=== PATIENT | male | born 1960 | race Caucasian/White ===

== ENCOUNTER → 2017-05-26 | Outpatient (CLI) | payer BC ==
--- NOTE | 2017-05-27 15:11 | ENG ---
ELECTRONYSTAGMOGRAM REPORT DATE OF SERVICE: 05/26/2017. VNG INDICATIONS: Vertigo. VNG FINDINGS: Saccades show intact peak velocities, accuracies and latencies. Gaze with fixation shows no nystagmus in any of the directions of gaze including centrally with vision denied. Tracking shows no break-ups at faster or slower speeds. Opticokinetic nystagmus shows no asymmetry. Static position testing of six different positions with eyes open and then with vision denied shows no nystagmus. Pinson-Hallpike maneuvers are negative bilaterally. Caloric testing shows a 14% unilateral left caloric weakness which is within normal limits. IMPRESSION: Unremarkable VNG study. MMODL / IJN: [id number] /
== END | disposition home or self-care (01) ==
LOC: NEUROMAIN 10:43
PROVIDERS: ATTEND Otolaryngology
DX: R42 Dizziness and giddiness (principal)
CPT/HCPCS: 92537; 92540

== ENCOUNTER → 2017-07-12 | Outpatient (CLI) | payer BC ==
--- NOTE | 2017-07-12 23:12 | MR ---
EXAMINATION TYPE: MR brain and iac wo/w con DATE OF EXAM: 07/12/2017 COMPARISON: NONE HISTORY: Dizziness TECHNIQUE: Multiplanar, multisequence images of the brain and brainstem is performed without and with IV contras t, utilizing 10 mL intravenous Gadavist . FINDINGS: Diffusion weighted images demonstrate no evidence of a recent infarct or other diffusion ab normality. There is no extra-axial fluid collection or significant white matter signal abnormality. The ventricular system and cisternal spaces are normal in size and appearance. The brain volume is age appropriate. Craniocervical junction is maintained. Sella turcica has a normal appearance. There are multiple scattered areas of abnormal signal within the white matter bilaterally which is no t. All measure 5 mm or less. There are approximately 20-25 lesions. No enhancing lesions. There is no evidence of cerebellopontine angle mass or acoustic schwannoma. Changes of mild bilateral chronic mastoiditis noted. There is a 7 mm mucosal lesion involving the posterior nasopharynx which does not meet the criteria o f a cyst. Changes of chronic sinusitis noted. IMPRESSION: 1. No evidence of cerebellopontine angle mass or acoustic schwannoma 2. There is a 7 mm mucosal lesion involving the posterior nasopharynx correlate with the ENT consulta tion. 3. Changes of mild chronic mastoiditis and sinusitis. 4. Nonspecific white matter changes. Differential diagnosis would include hypertension, migraine head aches, demyelinating disease, and remote microvascular ischemia.
== END | disposition home or self-care (01) ==
LOC: RADMRIMAIN 17:05
PROVIDERS: ATTEND Family Medicine
DX: R90.82 White matter disease, unspecified (principal); R42 Dizziness and giddiness
CPT/HCPCS: 70553; A9581

== ENCOUNTER → 2017-07-15 | Outpatient (CLI) | payer BC ==
[~2017-07-15] MED LIST: DOBUTamine 250 MG in DEXTROSE 5% IN WATER 250 ML IV ONE
--- NOTE | 2017-07-15 13:12 | EST ---
EXERCISE STRESS AGE: 57 SEX: M HT: 6' WT: 210 PROTOCOL: Dobutamine Stress Echo STAGE: III DURATION OF EXERCISE: 9:05 HEART RATE REST: 62. BLOOD PRESSURE REST: 138/73 MAXIMUM HEART RATE ACHIEVED: 138 MAXIMUM BLOOD PRESSURE: 207/42 85% MPHR: 138 100% MPHR: 160 INDICATIONS: Dizziness CLINICAL INFORMATION: Baseline heart rate 62 beats per minute. Baseline blood pressure 138/73 mmHg. Baseline 12-lead ECG shows normal sinus rhythm with normal ST segments. Patient received dobutamine infusion per protocol. There was a [address] depression noted at peak exercise that lasted in recovery. The baseline 2D echo images showed normal LV size and systolic function without segmental wall motion abnormalities. The 2D echo images at baseline showed normal LV size and systolic function without segmental wall motion abnormalities. There was a stepwise improvement in overall LV contractility without development of any wall motion abnormalities with a incremental dose of dobutamine at recovery regional global LV systolic function remained normal. IMPRESSION: 1. A [address] depressions inferolaterally during dobutamine infusion. 2. No echocardiographic evidence for ischemia. Heart rate mildly hypertensive response to dobutamine infusion. MMODL / IJN: [id number] /
== END | disposition home or self-care (01) ==
LOC: RADNMMAIN 09:53
PROVIDERS: ATTEND Family Medicine
DX: R94.39 Abnormal result of other cardiovascular function study (principal); R06.00 Dyspnea, unspecified
CPT/HCPCS: 93017; 93350; J1250

== ENCOUNTER → 2017-11-10 | Outpatient (CLI) | payer BC ==
--- NOTE | 2017-11-10 11:11 | US ---
EXAMINATION TYPE: US duplex aorta DATE OF EXAM: 11/10/2017 COMPARISON: NONE CLINICAL HISTORY: 57-year-old male I70.0 Atherosclerosis of aorta. Back Pain TECHNIQUE: Multiple sonographic images of the abdominal aorta are obtained. FINDINGS: EXAM MEASUREMENTS: Abdominal Aorta: Proximal: 2.3 x 2.3 cm Mid: 2.3 x 2.1 cm Distal: 1.8 x 1.8 cm Bifurcation: 1.3 cm 1.3 cm There is mild to moderate atherosclerotic irregularity. Curriculum And Assessment Director notes: No evidence of AAA. Some portions obscured by bowel gas. IMPRESSION: Small segments of the abdominal aorta are obscured by bowel gas. No AAA visualized.
== END | disposition home or self-care (01) ==
LOC: RADUSWWP 10:08
PROVIDERS: ATTEND Family Medicine
DX: I70.0 Atherosclerosis of aorta (principal); R14.3 Flatulence
CPT/HCPCS: 93979

== ENCOUNTER 2020-06-14 11:22 | Day surgery (SDC) | payer BC ==
[2020-06-13 08:54] VITALS: BMI 26.7
[~2020-06-14 11:22] MED LIST changes: +ALBUTEROL NEB (CONC) 2.5 MG/0.5 ML INHALATION ONE; +DEXAMETHASONE SOD PHOSPHATE 4 MG/ML 1 ML VIAL IV ONE; -DOBUTamine 250 MG in DEXTROSE 5% IN WATER 250 ML IV ONE; +LACTATED RINGERS 1,000 ML IV SCH; +LIDOCAINE 1% (10MG/ML) FOR IV START INTRADERMA PRN; +LIDOCAINE 2% (PF) 20 MG/ML 5 ML VIAL INHALATION ONE; +LIDOCAINE VISCOUS 300 MG/15 ML CUP MUCOUS MEM ONE; +ONDANSETRON 4 MG/2 ML VIAL IVP ONE; +SODIUM CHLORIDE 0.9% 1,000 ML IV SCH
[2020-06-14] MEDS ORDERED: MIDAZOLAM 2 MG/2 ML VIAL ONE (12:24)
[2020-06-14] MEDS ORDERED: PROPOFOL 10 MG/ML 20 ML VIAL IV ONE (12:24)
[2020-06-14] MEDS ORDERED: KETAMINE 10 MG/ML 20 ML VIAL ONE (12:24)
[2020-06-14] MEDS ORDERED: LIDOCAINE 1% INJ 10MG/ML (20 ML MDV) ONE (12:24)
[2020-06-14] MEDS ORDERED: fentaNYL (PF) 50 MCG/ML 2 ML AMP ONE (12:24)
[2020-06-14] MEDS ORDERED: SUCCINYLCHOLINE CHLORIDE 100 MG/5 ML SYR IV ONE (12:24)
[2020-06-14] MEDS ORDERED: SODIUM CHLORIDE 0.9% 500 ML 500 ML IV ONE (13:10)
--- NOTE | 2020-06-14 13:12 | P.PCN ---
Date of Procedure: 06/14/20 Preoperative Diagnosis: Mediastinal mass, adenopathy Postoperative Diagnosis: 1 mediastinal lymphadenopathy/mass 2 eExtrinsic compression of the right mainstem bronchus, with some mild endobronchial irregularities involving the medial wall of the right mainstem bronchus 3 endobronchial irregularities and narrowing of the right middle lobe bronchus Procedure(s) Performed: 1 flexible bronchoscopy 2 Transbronchial needle aspirate of the right paratracheal and subcarinal lymph node 3 endobronchial bronchial brushings of the right mainstem bronchus 4 endobronchial biopsies of the right middle lobe bronchus 5 bronchioloalveolar lavage of the right mainstem bronchus Anesthesia: GETA Surgeon: Kevin Chavez Continuous Improvement Lead #1: Erum Hassan Estimated Blood Loss (ml): 5 Pathology: other Condition: stable Disposition: floor Operative Findings: This procedure was done under conscious sedation. The procedure, the procedure was converted to general anesthesia and the patient was ultimately intubated and placed on a mechanical ventilator by the anesthesia team as the patient had significant cough during the procedure with presented our ability to complete our biopsies. Following intubation, the the flexible bronchoscope was introduced through the orotracheal tube into the past the lower trachea. Distal trachea was within normal limits. Examination of the left side including left main stem bronchus, left upper and left lower bronchus along with the aid different segments of the left lung and these structures were within normal limits without any significant abnormalities. The main toni was normal. The distal tracheal wall laterally was aphasic and the cartilaginous rings were not adequately visualized. It was obvious that there was some mass effect associated by the right paratracheal lymphadenopathy on the right lateral tracheal wall. At the level of the main stem bronchus, the medial wall of the right mainstem bronchus was extrinsically compressed and there was some minimal endobronchial irregularities and fine polypoid lesions along the wall going medially and airway caliber was reduced by around 30-40% of its normal size. Examination was continued on similar endobronchial irregularities and narrowing was seen in the right middle lobe bronchus. The right lower lobe bronchus and the right upper lobe bronchus was within normal limits. At this point, using a 19-gauge histology and 21-gauge cytology needle, transbronchial needle aspirate of the right paratracheal lymph node and subcarinal lymph node was obtained. Following that, endobronchial washing/BAL of the right mainstem bronchus was somewhat a total of 60 mL of fluid was infused and 20 mL was suctioned back. Endobronchial brushings of the right mainstem bronchus was done with special attention to with the endobronchial irregularities of the medial wall of the right mainstem bronchus. I also performed some endobronchial biopsies of the mucosa irregularities in the right middle lobe bronchus. There was some bleeding encountered and amount of blood was less than 5 mL. It was suctioning with him. Bronchoscope was removed and the patient was left for an associated to be extubated. Subsequently the patient will be transferred to recovery post extubation. We'll continue to follow. Preliminary samples were inspected by pathology at the bedside and the adequacy of the samples were confirmed.
[2020-06-14 13:32] VITALS: TEMP 98
[2020-06-14 13:59] VITALS: RESP 20
--- NOTE | 2020-06-14 14:00 | XR ---
EXAMINATION TYPE: XR chest 1V portable DATE OF EXAM: 06/14/2020 Comparison: CT 06/07/2020 Clinical History: 59 year-old male post right-sided bronchoscopy Findings: Heart limits of normal in size. Diffuse interstitial density. Focal patchy peripheral right mid and l ower lung opacity. Right hilar soft tissue prominence. No pleural effusion or pneumothorax. Impression: COPD and known right hilar mass. As compared to the patient's recent outside CT, patchy opacity in th e periphery of right mid to lower lung is increased and could represent post bronchoscopy changes or postobstructive atelectasis/pneumonitis. Clinically correlate.
[2020-06-14 14:33] VITALS: BP 125/77; PULSE 100
[2020-06-14 16:45] LABS: Appearance,BF Bloody; Color,BF Red; Nucleated Cells, Body Fluid 70 /uL; RBC, Body Fluid 48350 /uL
[2020-06-14 17:04] LABS: Mononuclear WBC,Body Fluid 15 %; Polynuclear WBC,Body Fluid 85 %; Total Cells Counted,Body Fluid 100
== END 2020-06-14 14:54 | disposition home or self-care (01) ==
LOC: ORWHC2ENDO 11:22
PROVIDERS: ATTEND Internal Medicine Critical Care Medicine
DX: C34.2 Malignant neoplasm of middle lobe, bronchus or lung (principal); C77.1 Secondary and unspecified malignant neoplasm of intrathoracic lymph nodes; R59.1 Generalized enlarged lymph nodes; D64.9 Anemia, unspecified; M54.6 Pain in thoracic spine; J43.9 Emphysema, unspecified; K76.9 Liver disease, unspecified; Z79.891 Long term (current) use of opiate analgesic; Z79.51 Long term (current) use of inhaled steroids; Z96.649 Presence of unspecified artificial hip joint; Z87.01 Personal history of pneumonia (recurrent); Z87.891 Personal history of nicotine dependence; Z97.2 Presence of dental prosthetic device (complete) (partial); Z82.3 Family history of stroke; Z80.1 Family history of malignant neoplasm of trachea, bronchus and lung
CPT/HCPCS: 88104; 88108; 88305; 88173; 89050; 88342; 88341; 87070; 87205; 71045; 31629; 31625; 31623; 31624; J2250; J2001; J3010; J0330; J2704

== ENCOUNTER → 2020-06-20 | Outpatient (CLI) | payer BC ==
--- NOTE | 2020-06-21 09:48 | MR ---
EXAMINATION TYPE: MR brain wo/w con DATE OF EXAM: 06/20/2020 COMPARISON: 07/12/2017 MRI HISTORY: F/u to Lung CA CONTRAST: Performed utilizing 7.5 mL intravenous Gadavist gadolinium contrast. TECHNIQUE: Multiplanar, multiecho imaging on a 3.0 Sammie magnet is performed through the brain. Stud y is performed within 24 hours of arrival to the hospital. The craniovertebral junction is normal. The pituitary is normal. Diffusion-weighted imaging is performed. No abnormal hyperintensity is present to suggest an acute i ntracranial infarct or acute ischemic change. There are scattered punctate areas of hyperintensity within the periventricular white matter as well as the brainstem on T2 and Inversion Recovery weighted sequences which are non-specific but can be re lated to microvascular ischemic changes. Findings appear similar to 2018. Ventricles and sulci are appropriate for the patient age. No suspicious enhancement is evident. IMPRESSIONS: 1. No suspicious changes to suggest metastatic disease. 2. Stable nonspecific punctate white matter changes most likely on the basis of chronic white matter ischemic change, similar to 2018.
== END ==
LOC: RADMRIMAIN 09:41
PROVIDERS: ATTEND Internal Medicine Hematology & Oncology
DX: C34.90 Malignant neoplasm of unspecified part of unspecified bronchus or lung (principal)
CPT/HCPCS: 70553; A9585

== ENCOUNTER → 2020-06-21 | Outpatient (CLI) | payer BC ==
--- NOTE | 2020-06-25 07:05 | PE ---
EXAMINATION TYPE: PET CT fusion skull to thigh DATE OF EXAM: 06/21/2020 COMPARISON: Outside CTA chest June 07, 2020 HISTORY: Left lung cancer on biopsy June 14, 2020 TECHNIQUE: Following the intravenous administration of 11.7 mCi of F-18 FDG, whole body images are p erformed from the skull base to the midthigh. Images are reviewed on the computer in the coronal, ax ial, and sagittal planes. Reconstructed rotating images are created on independent workstation and r eviewed on the computer. A localization and attenuation correction CT is performed in conjunction w ith the PET scan. Blood glucose level equals 97. SCAN: Initial Scan FINDINGS: SKULL BASE AND NECK: There is roughly 1.1 x 0.8 cm right supraclavicular hypermetabolic lymph node, max SUV 3.65 on axial image 57. CHEST, MEDIASTINUM, AND HILAR REGION: Background moderate underlying emphysematous change and low abdias g volumes. Persistent poorly defined right hilar mass with mediastinal invasion that has postobstruct gallito atelectatic change and/or consolidation extending posteriorly and inferiorly, there is soft tissu e encasement surrounding the right-sided bronchi and bronchus intermedius through middle and lower lo be branches. Area of involvement measures at least 6.8 x 5.4 cm with max SUV 7.52. There is abnormal hypermetabolic anterior superior mediastinal lymph nodes, right paratracheal, peric arinal, and bilateral hilar lung with subcarinal lymph nodes. For reference there is right tracheobro nchial 2.2 x 1.7 cm hypermetabolic lymph node, max SUV 4.95. ABDOMEN AND PELVIS: Multiple hypermetabolic hypodense metastatic lesions throughout the liver for ref erence one of larger lesions measures 3.5 cm long axis image 135, max SUV is 5.32. Suspicious subcentimeter focus in region of pancreatic tail image 146, Max SUV is 3.4. OSSEOUS STRUCTURES: Possible left pubic lesion axial image 241, max SUV 3.46. Subtle sclerosis at thi s level noted. There is proximal right femoral lesion intertrochanteric level axial image 257, max GILBERT V 4.75. Mild height loss T12 vertebra with mild hypermetabolic uptake, max SUV 3.6. OTHER CT: Mild calcified plaque bilateral carotid bulb level. There is cardiomegaly with mild/moderate coronary artery calcification. Small fat-containing left periumbilical hernia axial image 187. Mild/moderate calcified plaque of the abdominal aorta. Metallic hardware from left hip arthroplasty causes streak artifact. IMPRESSION: Advanced stage right lung neoplasm confirmed as suspected clinically with abnormal thorac ic and supraclavicular adenopathy, there is hepatic and osseous metastatic disease noted. Other findi ngs as detailed above.
== END | disposition home or self-care (01) ==
LOC: RADPETMAIN 17:47
PROVIDERS: ATTEND Internal Medicine Hematology & Oncology
DX: C34.91 Malignant neoplasm of unspecified part of right bronchus or lung (principal); C78.7 Secondary malignant neoplasm of liver and intrahepatic bile duct; C79.51 Secondary malignant neoplasm of bone
CPT/HCPCS: 78815; A9552

== ENCOUNTER → 2020-08-09 | Outpatient (CLI) | payer BC ==
[2020-08-09 16:39] LABS: Basophils # (A) 0.02 X 10*3/uL (0.00-0.10); Basophils % (A) 0.7 %; Eosinophils # (A) 0.01 X 10*3/uL (0.04-0.35); Eosinophils % (A) 0.3 %; HCT 28.3 % (39.6-50.0); HGB 9.4 g/dL (13.0-17.0); Lymphocytes # (A) 1.73 X 10*3/uL (0.90-5.00); Lymphocytes % (A) 58.8 %; MCH 32.6 pg (27.0-32.0); MCHC 33.2 g/dL (32.0-37.0); MCV 98.3 fL (80.0-97.0); Mean Platelet Volume 11.7 fL (9.5-12.2); Monocytes # (A) 0.22 X 10*3/uL (0.20-1.00); Monocytes % (A) 7.5 %; Neutrophils # (A) 0.95 X 10*3/uL (1.80-7.70); Neutrophils % (A) 32.4 %; Platelet Count 88 X 10*3/uL (140-440); RBC 2.88 X 10*6/uL (4.40-5.60); RDW 16.8 % (11.5-14.5); WBC 2.94 X 10*3/uL (4.50-10.00)
[2020-08-09 21:33] LABS: African American GFR (CKD) 111.7 (60.0-200.0); Albumin 4.1 g/dL (3.80-4.90); Albumin/Globulin Ratio 1.46 (1.60-3.17); Anion Gap 10.4 mmol/L (4.00-12.00); BUN/Creat Ratio 12.5 Ratio (12.00-20.00); Calcium 8.5 mg/dL (8.7-10.3); Carbon Dioxide 22.6 mmol/L (21.6-31.8); Globulin 2.8 g/dL (1.6-3.3); Non-African American GFR(CKD) 96.4 (60.0-200.0); Potassium 4.3 mmol/L (3.5-5.5); Total Bilirubin 0.6 mg/dL (0.2-1.2); Total Protein 6.9 g/dL (6.2-8.2)
== END | disposition home or self-care (01) ==
LOC: LABWHC1 10:22
PROVIDERS: ATTEND Internal Medicine Hematology & Oncology
DX: C34.90 Malignant neoplasm of unspecified part of unspecified bronchus or lung (principal)
CPT/HCPCS: 36415; 80053; 85025

== ENCOUNTER → 2020-08-12 | Outpatient (CLI) | payer BC ==
[2020-08-12 19:07] LABS: Reticulocyte % 3.04 % (0.10-1.80)
[2020-08-12 20:42] LABS: Folate, Serum 20.8 ng/mL
[2020-08-13 13:01] LABS: Zinc, Serum 87 ug/dL (60-130)
== END | disposition home or self-care (01) ==
LOC: LABWHC1 13:05
PROVIDERS: ATTEND Internal Medicine Hematology & Oncology
DX: C34.90 Malignant neoplasm of unspecified part of unspecified bronchus or lung (principal); D61.810 Antineoplastic chemotherapy induced pancytopenia
CPT/HCPCS: 36415; 82525; 82607; 82746; 84630; 85045

== ENCOUNTER → 2020-09-13 | Outpatient (CLI) | payer BC ==
[2020-09-13 19:30] LABS: Basophils # (A) 0.06 X 10*3/uL (0.00-0.10); Basophils % (A) 0.7 %; Eosinophils # (A) 0.03 X 10*3/uL (0.04-0.35); Eosinophils % (A) 0.3 %; HCT 31.8 % (39.6-50.0); HGB 10.5 g/dL (13.0-17.0); Lymphocytes # (A) 1.48 X 10*3/uL (0.90-5.00); Lymphocytes % (A) 17.2 %; MCH 35.7 pg (27.0-32.0); MCV 108.2 fL (80.0-97.0); Mean Platelet Volume 9.6 fL (9.5-12.2); Monocytes % (A) 8.1 %; Neutrophils # (A) 6.21 X 10*3/uL (1.80-7.70); Neutrophils % (A) 72.4 %; Platelet Count 70 X 10*3/uL (140-440); RBC 2.94 X 10*6/uL (4.40-5.60); RDW 19.3 % (11.5-14.5); WBC 8.59 X 10*3/uL (4.50-10.00)
== END | disposition home or self-care (01) ==
LOC: LABWHC1 12:43
PROVIDERS: ATTEND Internal Medicine Hematology & Oncology
DX: C34.90 Malignant neoplasm of unspecified part of unspecified bronchus or lung (principal)
CPT/HCPCS: 36415; 85025

== ENCOUNTER → 2020-09-20 | Outpatient (CLI) | payer BC ==
[2020-09-20 13:53] LABS: Anisocytosis Slight; Basophils % (A) 0 %; Eosinophils % (A) 1 %; Hypochromasia Slight; Lymphocytes # (A) 1.1 k/uL (1.0-4.8); Lymphocytes % (A) 20 %; MCH 33.3 pg (25.0-35.0); MCHC 30.6 g/dL (31.0-37.0); Macrocytosis Marked; Mean Platelet Volume 7.5; Monocytes # (A) 0.5 k/uL (0-1.0); Monocytes % (A) 10 %; Neutrophils # (A) 3.6 k/uL (1.3-7.7); Neutrophils % (A) 66 %; Platelet Count 114 k/uL (150-450); RBC 3.31 m/uL (4.30-5.90); RDW 19.9 % (11.5-15.5); WBC 5.5 k/uL (3.8-10.6)
[2020-09-20 14:04] LABS: MCV 108.6 fL (80.0-100.0)
== END | disposition home or self-care (01) ==
LOC: LABWHC1 13:24
PROVIDERS: ATTEND Internal Medicine Hematology & Oncology
DX: C34.90 Malignant neoplasm of unspecified part of unspecified bronchus or lung (principal)
CPT/HCPCS: 36415; 85025

== ENCOUNTER → 2020-10-11 | Outpatient (CLI) | payer BC ==
[2020-10-11 15:07] LABS: Anisocytosis Slight; Basophils % (A) 0 %; Eosinophils % (A) 0 %; HCT 32.9 % (39.0-53.0); HGB 10.9 gm/dL (13.0-17.5); Lymphocytes # (A) 1.3 k/uL (1.0-4.8); Lymphocytes % (A) 14 %; MCH 36.1 pg (25.0-35.0); MCV 109.4 fL (80.0-100.0); Macrocytosis Marked; Monocytes # (A) 0.4 k/uL (0-1.0); Monocytes % (A) 5 %; Neutrophils # (A) 7.1 k/uL (1.3-7.7); Neutrophils % (A) 78 %; RBC 3.01 m/uL (4.30-5.90); RDW 18.4 % (11.5-15.5); WBC 9.1 k/uL (3.8-10.6)
[2020-10-11 16:45] LABS: Platelet Count 29 k/uL (150-450)
[2020-10-11 16:46] LABS: Polychromasia Present
== END | disposition home or self-care (01) ==
LOC: LABWHC1 13:44
PROVIDERS: ATTEND Internal Medicine Hematology & Oncology
DX: C34.90 Malignant neoplasm of unspecified part of unspecified bronchus or lung (principal)
CPT/HCPCS: 36415; 85025

== ENCOUNTER 2020-11-12 12:11 | Emergency (ER) | payer BC ==
[2020-11-12 12:23] VITALS: TEMP 97.9
--- NOTE | 2020-11-12 14:00 | ED ---
General Adult HPI - General Chief complaint: Shortness of Breath Stated complaint: cancer pt, SOB Time Seen by Provider: 11/12/20 12:20 Source: patient, RN notes reviewed, old records reviewed Mode of arrival: wheelchair Limitations: no limitations - History of Present Illness Initial comments: This is a 60-year-old male who presents emergency Department with a recent past medical history significant for lung cancer. Patient states his last chemo lela atment was in September. Patient states last night he woke up the middle night extremely short of breath and his shortness of breath though not quite as severe continues. Patient states he also had some chest burning last evening. Patient denies any fever chills or cough. Patient denies any burning currently. Patient denies any abdominal pain patient's nausea vomiting diarrhea. Patient denies lightheadedness or dizziness. Patient denies any calf pain or swelling in the legs. - Related Data Home Medications Medication Instructions Recorded Confirmed Albuterol Nebulized [Ventolin 2.5 mg INHALATION RT-QID PRN 11/12/20 11/12/20 Nebulized] Elderberry Fruit and Flower [Black 1 cap PO DAILY 11/12/20 11/12/20 Elderberry 575 mg Cap] Fluticasone/Umeclidin/Vilanter 1 puff INHALATION RT-DAILY 11/12/20 11/12/20 [Treletoya Ellipta 200-62.5-25] Gabapentin 300 mg PO BID 11/12/20 11/12/20 Hydrocodone Bit/Homatrop Me-Br 5 ml PO Q6H PRN 11/12/20 11/12/20 [Hycodan 5 mg-1.5 mg/5 ml Soln] Ipratropium-Albuterol Nebulize 3 ml INHALATION RT-QID PRN 11/12/20 11/12/20 [Duoneb 0.5 mg-3 mg/3 ml Soln] Morphine Sulfate ER [Ms Contin] 30 mg PO Q8H 11/12/20 11/12/20 Ondansetron Odt [Zofran Odt] 4 mg PO Q8H PRN 11/12/20 11/12/20 Pantoprazole Sodium [Protonix] 20 mg PO DAILY 11/12/20 11/12/20 Polyethylene Glycol 3350 [Miralax] 17 gm PO DAILY 11/12/20 11/12/20 Sennosides/Docusate Sodium 2 tab PO BID PRN 11/12/20 11/12/20 [Senna-S 8.6-50 mg Tablet] Sulfamethox-Tmp 800-160Mg [Bactrim 1 tab PO MOWEFR 11/12/20 11/12/20 DS 800-160 mg] oxyCODONE HCL [OxyIR] 5 - 10 mg PO Q4H PRN 11/12/20 11/12/20 predniSONE See Taper PO DAILY 11/12/20 11/12/20 Previous Rx's Medication Instructions Recorded Levofloxacin [Levaquin] 750 mg PO DAILY #10 tab 11/12/20 Allergies Allergy/AdvReac Type Severity Reaction Status Date / Time No Known Allergies Allergy Verified 11/12/20 14:30 Review of Systems ROS Statement: Those systems with pertinent positive or pertinent negative responses have been documented in the HPI. ROS Other: All systems not noted in ROS Statement are negative. Past Medical History Past Medical History: Cancer Additional Past Medical History / Comment(s): Lung CA chemo last treatment end of September 2020. cough for 3 weeks back r/t coughing History of Any Multi-Drug Resistant Organisms: None Reported Past Surgical History: Joint Replacement Additional Past Surgical History / Comment(s): lt hip replacement Past Anesthesia/Blood Transfusion Reactions: No Reported Reaction Past Psychological History: No Psychological Hx Reported Smoking Status: Former smoker Past Alcohol Use History: None Reported Past Drug Use History: None Reported General Exam - General Exam Comments Initial Comments: GENERAL: Patient is well-developed and well-nourished. Patient is nontoxic and well- hydrated and is in mild distress. ENT: Neck is soft and supple. No significant lymphadenopathy is noted. Oropharynx is clear. Moist mucous membranes. Neck has full range of motion without eliciting any pain. EYES: The sclera were anicteric and conjunctiva were pink and moist. Extraocular movements were intact and pupils were equal round and reactive to light. Eyelids were unremarkable. PULMONARY: Unlabored respirations. Good breath sounds bilaterally. Patient has some crackles in the left base and right mid lung CARDIOVASCULAR: There is a regular rate and rhythm without any murmurs gallops or rubs. ABDOMEN: Soft and nontender with normal bowel sounds. SKIN: Skin is clear with no lesions or rashes and otherwise unremarkable. NEUROLOGIC: Patient is alert and oriented x3. Cranial nerves II through XII are grossly intact. Motor and sensory are also intact. Normal speech, volume and content. Symmetrical smile. MUSCULOSKELETAL: Normal extremities with adequate strength and full range of motion. LYMPHATICS: No significant lymphadenopathy is noted PSYCHIATRIC: Normal psychiatric evaluation. Limitations: no limitations Course Vital Signs 11/12/20 11/12/20 11/12/20 12:19 13:41 16:06 Temperature 97.9 F 97.9 F Pulse Rate 85 100 Respiratory 20 22 18 Rate Blood Pressure 135/78 152/75 O2 Sat by Pulse 96 91 L Oximetry Medical Decision Making - Medical Decision Making EKG shows normal sinus rhythm at 69 bpm AK interval is on a 46 Ramon's 114 Q-T intervals 42 QTC is 4:30. Patient's EKG shows no ST segment elevation or depression. Patient had CT of the chest showed no PE however there is large mass with surrounding opacifications. Because of the patient's high white count I put the patient on antibiotics. I recommended patient stay but he wanted to try oral antibiotics at home and stated that he got any worse he would return. - Lab Data Result diagrams: 11/12/20 14:47 11/12/20 14:47 Lab Results 11/12/20 11/12/20 11/12/20 Range/Units 14:47 14:47 14:47 WBC 14.2 H (3.8-10.6) k/uL RBC 3.89 L (4.30-5.90) m/uL Hgb 14.0 (13.0-17.5) gm/dL Hct 43.1 (39.0-53.0) % MCV 110.8 H (80.0-100.0) fL MCH 36.0 H (25.0-35.0) pg MCHC 32.5 (31.0-37.0) g/dL RDW 17.0 H (11.5-15.5) % Plt Count 227 (150-450) k/uL MPV 7.0 Neutrophils % 90 % Lymphocytes % 7 % Monocytes % 1 % Eosinophils % 1 % Basophils % 0 % Neutrophils # 12.8 H (1.3-7.7) k/uL Lymphocytes # 1.1 (1.0-4.8) k/uL Monocytes # 0.2 (0-1.0) k/uL Eosinophils # 0.1 (0-0.7) k/uL Basophils # 0.0 (0-0.2) k/uL Anisocytosis Slight Macrocytosis Marked A PT 11.7 (9.0-12.0) sec INR 1.1 (<1.2) APTT 22.2 (22.0-30.0) sec D-Dimer 1.25 H (<0.60) mg/L FEU Sodium 132 L (137-145) mmol/L Potassium 4.6 (3.5-5.1) mmol/L Chloride 99 (98-107) mmol/L Carbon Dioxide 24 (22-30) mmol/L Anion Gap 9 mmol/L BUN 12 (9-20) mg/dL Creatinine 0.60 L (0.66-1.25) mg/dL Est GFR (CKD-EPI)AfAm >90 (>60 ml/min/1.73 sqM) Est GFR (CKD-EPI)NonAf >90 (>60 ml/min/1.73 sqM) Glucose 155 H (74-99) mg/dL Plasma Lactic Acid Michael (0.7-2.0) mmol/L Calcium 9.2 (8.4-10.2) mg/dL Total Bilirubin 0.3 (0.2-1.3) mg/dL AST 47 (17-59) U/L ALT 60 H (4-49) U/L Alkaline Phosphatase 124 (38-126) U/L Troponin I (0.000-0.034) ng/mL Total Protein 7.3 (6.3-8.2) g/dL Albumin 4.1 (3.5-5.0) g/dL 11/12/20 11/12/20 Range/Units 14:47 14:47 WBC (3.8-10.6) k/uL RBC (4.30-5.90) m/uL Hgb (13.0-17.5) gm/dL Hct (39.0-53.0) % MCV (80.0-100.0) fL MCH (25.0-35.0) pg MCHC (31.0-37.0) g/dL RDW (11.5-15.5) % Plt Count (150-450) k/uL MPV Neutrophils % % Lymphocytes % % Monocytes % % Eosinophils % % Basophils % % Neutrophils # (1.3-7.7) k/uL Lymphocytes # (1.0-4.8) k/uL Monocytes # (0-1.0) k/uL Eosinophils # (0-0.7) k/uL Basophils # (0-0.2) k/uL Anisocytosis Macrocytosis PT (9.0-12.0) sec INR (<1.2) APTT (22.0-30.0) sec D-Dimer (<0.60) mg/L FEU Sodium (137-145) mmol/L Potassium (3.5-5.1) mmol/L Chloride (98-107) mmol/L Carbon Dioxide (22-30) mmol/L Anion Gap mmol/L BUN (9-20) mg/dL Creatinine (0.66-1.25) mg/dL Est GFR (CKD-EPI)AfAm (>60 ml/min/1.73 sqM) Est GFR (CKD-EPI)NonAf (>60 ml/min/1.73 sqM) Glucose (74-99) mg/dL Plasma Lactic Acid Michael 2.1 H* (0.7-2.0) mmol/L Calcium (8.4-10.2) mg/dL Total Bilirubin (0.2-1.3) mg/dL AST (17-59) U/L ALT (4-49) U/L Alkaline Phosphatase (38-126) U/L Troponin I <0.012 (0.000-0.034) ng/mL Total Protein (6.3-8.2) g/dL Albumin (3.5-5.0) g/dL Disposition Clinical Impression: Lung cancer, Dyspnea, Pneumonia Disposition: HOME SELF-CARE Instructions (If sedation given, give patient instructions): Bacterial Pneumonia (ED) Prescriptions: Levofloxacin [Levaquin] 750 mg PO DAILY #10 tab Is patient prescribed a controlled substance at d/c from ED?: No Referrals: Renan Gonzalez MD [Primary Care Provider] - 1-2 days Time of Disposition: 17:27
--- NOTE | 2020-11-12 14:27 | XR ---
EXAMINATION TYPE: XR chest 2V DATE OF EXAM: 11/12/2020 COMPARISON: 10/02/2020 TECHNIQUE: PA and lateral views submitted. HISTORY: Cough FINDINGS: There is patchy infiltrate involving the right lung base similar to the prior exam with coarsened int erstitial changes and biapical pleural thickening. Heart size stable and there is mild prominence of the right hilum. Underlying COPD suggested and there is degenerative change spine. IMPRESSION: 1. Patchy peripheral and basilar infiltrates persist with underlying COPD and right hilar adenopathy or mass.
[2020-11-12 15:08] LABS: Anisocytosis Slight; Basophils % (A) 0 %; Eosinophils # (A) 0.1 k/uL (0-0.7); Eosinophils % (A) 1 %; HCT 43.1 % (39.0-53.0); Lymphocytes # (A) 1.1 k/uL (1.0-4.8); Lymphocytes % (A) 7 %; MCHC 32.5 g/dL (31.0-37.0); MCV 110.8 fL (80.0-100.0); Macrocytosis Marked; Monocytes # (A) 0.2 k/uL (0-1.0); Monocytes % (A) 1 %; Neutrophils # (A) 12.8 k/uL (1.3-7.7); Neutrophils % (A) 90 %; Platelet Count 227 k/uL (150-450); RBC 3.89 m/uL (4.30-5.90); WBC 14.2 k/uL (3.8-10.6)
[2020-11-12 15:18] LABS: ALT 60 U/L (4-49); AST 47 U/L (17-59); African American GFR (CKD) >90 (>60 ml/min/1.73 sqM); Albumin 4.1 g/dL (3.5-5.0); Alkaline Phosphatase 124 U/L (38-126); Anion Gap 9 mmol/L; Blood Urea Nitrogen 12 mg/dL (9-20); Calcium 9.2 mg/dL (8.4-10.2); Carbon Dioxide 24 mmol/L (22-30); Chloride 99 mmol/L (98-107); Glucose 155 mg/dL (74-99); Non-African American GFR(CKD) >90 (>60 ml/min/1.73 sqM); Potassium 4.6 mmol/L (3.5-5.1); Sodium 132 mmol/L (137-145); Total Bilirubin 0.3 mg/dL (0.2-1.3); Total Protein 7.3 g/dL (6.3-8.2)
[2020-11-12 15:21] LABS: INR 1.1 (<1.2); Partial Thromboplastin Time 22.2 sec (22.0-30.0); Prothrombin Time 11.7 sec (9.0-12.0)
[2020-11-12 16:08] VITALS: BP 152/75; PULSE 100; RESP 18
--- NOTE | 2020-11-12 16:32 | CT ---
CT CHEST FOR PULMONARY EMBOLISM. EXAMINATION TYPE: CT chest angio for PE DATE OF EXAM: 11/12/2020 INDICATION: Shortness of breath. History of lung cancer. CT DLP: 347.1 mGycm, Automated exposure control for dose reduction was used. CONTRAST: Patient injected with 100 mL of Isovue 370. COMPARISON: 06/07/2020 TECHNIQUE: CT of the chest is performed on a spiral scan at 2 mm thick sections. Study is performed with intravenous contrast timed for evaluation for pulmonary embolism. This will limit additional po rtions of the evaluation. 3-D MIP images reconstructed by the technologist are reviewed on the compu ter in the coronal and sagittal planes. FINDINGS: No persistent filling defects are evident to suggest an acute pulmonary embolism. There is soft tissue density within knee as ago esophageal recess extending into the hilum and into t he mediastinum including subcarinal region. This appears to have encasement of the right main pulmona ry artery with narrowing. Right peribronchial encasement is evident with narrowing of the right lower lobe.2 Enlarged paratracheal lymphadenopathy is evident, somewhat smaller than the comparison. The ascending aorta diameter at the level of the main pulmonary artery is 3.1 cm. The main pulmonary artery diameter at the bifurcation is 2.5 cm. Emphysematous blebs and bulla are present. There is increased linear markings in consolidations withi n the periphery of the mid and lower peripheral lung koehler greater on the right than left. Some pulm onary fibrosis is likely present on the right. Underlying nodularity is suspected on the right. Examp le images series [id number]. Limited CT section through the upper abdomen. Multiple hypodensities are scattered through the liver suspicious for hepatic metastases. These appear more apparent than comparison. IMPRESSIONS: 1. No acute pulmonary embolism. 2. Large right hilar and mediastinal mass with encasement of the main pulmonary artery and bronchus w ith some narrowing. 3. Suspected nodularity within the periphery of the right mid lung. 4. Peripheral bilateral increased lung markings. Metastatic disease, atelectasis, pneumonia could be considered. 5. Multiplying and enlarging hypodense lesions within the liver suspicious for metastatic disease.
[2020-11-12] MEDS ORDERED: LEVOFLOXACIN 750 MG TAB PO STA (17:28)
== END 2020-11-12 17:51 | disposition home or self-care (01) ==
LOC: EC 12:11
DX: C34.90 Malignant neoplasm of unspecified part of unspecified bronchus or lung (principal); J18.9 Pneumonia, unspecified organism; J44.0 Chronic obstructive pulmonary disease with (acute) lower respiratory infection; Z87.891 Personal history of nicotine dependence; Z79.52 Long term (current) use of systemic steroids; Z79.51 Long term (current) use of inhaled steroids; Z79.899 Other long term (current) drug therapy; Z96.642 Presence of left artificial hip joint
CPT/HCPCS: 36415; 93005; 85379; 80053; 83605; 84484; 85025; 85610; 85730; 71046; 71275; 99285; Q9967

== ENCOUNTER 2020-11-26 10:57 | Inpatient (IN) | payer BC ==
--- NOTE | 2020-11-26 11:11 | ED ---
General Adult HPI - General Stated complaint: SOB Time Seen by Provider: 11/26/20 10:57 Source: patient, RN notes reviewed, old records reviewed - History of Present Illness Initial comments: This is a 60-year-old male with a past medical history significant for smoking. Patient states he also was recently diagnosed lung cancer is metastatic disease to the liver and bone. Patient states about 1:00 morning started difficulty breathing and anytime he exerted himself at all difficulty breathing got substantially worse. Patient denies any chest pain. Patient's abdominal pain. Patient does any fever chills or cough. Patient denies any lightheadedness or dizziness. Patient swelling to the legs or calf tenderness. - Related Data Home Medications Medication Instructions Recorded Confirmed Albuterol Nebulized [Ventolin 2.5 mg INHALATION RT-QID PRN 11/12/20 11/26/20 Nebulized] Fluticasone/Umeclidin/Vilanter 1 puff INHALATION RT-DAILY PRN 11/12/20 11/26/20 [Trelegy Ellipta 200-62.5-25] Gabapentin 300 mg PO BID-W/MEALS 11/12/20 11/26/20 Hydrocodone Bit/Homatrop Me-Br 5 ml PO Q6H PRN 11/12/20 11/26/20 [Hycodan 5 mg-1.5 mg/5 ml Soln] Ipratropium-Albuterol Nebulize 3 ml INHALATION RT-QID PRN 11/12/20 11/26/20 [Duoneb 0.5 mg-3 mg/3 ml Soln] Ondansetron Odt [Zofran Odt] 4 mg PO Q8H PRN 11/12/20 11/26/20 Pantoprazole Sodium [Protonix] 20 mg PO DAILY 11/12/20 11/26/20 Polyethylene Glycol 3350 [Miralax] 17 gm PO DAILY 11/12/20 11/26/20 Sennosides/Docusate Sodium 2 tab PO BID PRN 11/12/20 11/26/20 [Senna-S 8.6-50 mg Tablet] Sulfamethox-Tmp 800-160Mg [Bactrim 1 tab PO MOWEFR 11/12/20 11/26/20 DS 800-160 mg] oxyCODONE HCL [OxyIR] 5 - 10 mg PO Q4H PRN 11/12/20 11/26/20 predniSONE See Taper PO DAILY 11/12/20 11/26/20 Gabapentin [Neurontin] 600 mg PO HS 11/26/20 11/26/20 Morphine Sulfate [Ms Contin] 60 mg PO Q12HR 11/26/20 11/26/20 Allergies Allergy/AdvReac Type Severity Reaction Status Date / Time No Known Allergies Allergy Verified 11/26/20 12:59 Review of Systems ROS Statement: Those systems with pertinent positive or pertinent negative responses have been documented in the HPI. ROS Other: All systems not noted in ROS Statement are negative. Past Medical History Past Medical History: Cancer Additional Past Medical History / Comment(s): Lung CA chemo last treatment end of September 2020. cough for 3 weeks back r/t coughing History of Any Multi-Drug Resistant Organisms: None Reported Past Surgical History: Joint Replacement Additional Past Surgical History / Comment(s): lt hip replacement Past Anesthesia/Blood Transfusion Reactions: No Reported Reaction Past Psychological History: No Psychological Hx Reported Smoking Status: Former smoker Past Alcohol Use History: None Reported Past Drug Use History: None Reported General Exam - General Exam Comments Initial Comments: GENERAL: Patient is well-developed and well-nourished. Patient is nontoxic and well- hydrated and is in mild distress. ENT: Neck is soft and supple. No significant lymphadenopathy is noted. Oropharynx is clear. Moist mucous membranes. Neck has full range of motion without eliciting any pain. EYES: The sclera were anicteric and conjunctiva were pink and moist. Extraocular movements were intact and pupils were equal round and reactive to light. Eyelids were unremarkable. PULMONARY: Patient is moving good air he has some crackles in the right base and affect or wheezing. CARDIOVASCULAR: Patient is tachycardic at about 150 beats a minute ABDOMEN: Soft and nontender with normal bowel sounds. SKIN: Skin is clear with no lesions or rashes and otherwise unremarkable. NEUROLOGIC: Patient is alert and oriented x3. Cranial nerves II through XII are grossly intact. Motor and sensory are also intact. Normal speech, volume and content. Symmetrical smile. MUSCULOSKELETAL: Normal extremities with adequate strength and full range of motion. No lower extremity swelling or edema. No calf tenderness. LYMPHATICS: No significant lymphadenopathy is noted PSYCHIATRIC: Normal psychiatric evaluation. Course Vital Signs 11/26/20 11/26/20 11/26/20 11:00 11:29 13:01 Temperature 98.9 F Pulse Rate 150 H 149 H 123 H Respiratory 18 18 16 Rate Blood Pressure 138/84 120/76 102/87 O2 Sat by Pulse 98 95 96 Oximetry 11/26/20 13:53 Temperature Pulse Rate 122 H Respiratory 16 Rate Blood Pressure 117/73 O2 Sat by Pulse 99 Oximetry Medical Decision Making - Medical Decision Making EKG shows atrial flutter with a 2-1 block 154 bpm FL interval is 124 tresses 84 Q-T intervals 326 QTC is 522. I do not see any ST segment elevation. CT of the chest shows no PE and is in the right hilum is no larger. Chest x-ray shows no acute abnormalities. Patient was started on Cardizem and heparin. Cardiology saw the patient emergency department. They were in agreement that the patient was in a flutter. I spoke with sounds physician's and the agreed to admit the patient admitted the patient wrote admitting orders - Lab Data Result diagrams: 11/26/20 11:10 11/26/20 11:10 Lab Results 11/26/20 11/26/20 11/26/20 Range/Units 11:10 11:10 11:10 WBC 15.0 H (3.8-10.6) k/uL RBC 4.64 (4.30-5.90) m/uL Hgb 16.8 (13.0-17.5) gm/dL Hct 51.4 (39.0-53.0) % MCV 110.9 H (80.0-100.0) fL MCH 36.3 H (25.0-35.0) pg MCHC 32.7 (31.0-37.0) g/dL RDW 15.3 (11.5-15.5) % Plt Count 144 L (150-450) k/uL MPV 7.6 Neutrophils % 74 % Lymphocytes % 17 % Monocytes % 6 % Eosinophils % 0 % Basophils % 1 % Neutrophils # 11.2 H (1.3-7.7) k/uL Lymphocytes # 2.6 (1.0-4.8) k/uL Monocytes # 1.0 (0-1.0) k/uL Eosinophils # 0.1 (0-0.7) k/uL Basophils # 0.1 (0-0.2) k/uL Manual Slide Review Performed Poikilocytosis (manual Present Anisocytosis (manual) Present Macrocytosis Marked A PT 11.8 (9.0-12.0) sec INR 1.1 (<1.2) APTT 23.1 (22.0-30.0) sec D-Dimer 1.45 H (<0.60) mg/L FEU Sodium 132 L (137-145) mmol/L Potassium 4.7 (3.5-5.1) mmol/L Chloride 100 (98-107) mmol/L Carbon Dioxide 22 (22-30) mmol/L Anion Gap 10 mmol/L BUN 11 (9-20) mg/dL Creatinine 0.58 L (0.66-1.25) mg/dL Est GFR (CKD-EPI)AfAm >90 (>60 ml/min/1.73 sqM) Est GFR (CKD-EPI)NonAf >90 (>60 ml/min/1.73 sqM) Glucose 150 H (74-99) mg/dL Plasma Lactic Acid Michael (0.7-2.0) mmol/L Calcium 9.2 (8.4-10.2) mg/dL Magnesium 2.1 (1.6-2.3) mg/dL Total Bilirubin 0.8 (0.2-1.3) mg/dL AST 64 H (17-59) U/L ALT 81 H (4-49) U/L Alkaline Phosphatase 149 H (38-126) U/L Troponin I (0.000-0.034) ng/mL NT-Pro-B Natriuret Pep pg/mL Total Protein 7.3 (6.3-8.2) g/dL Albumin 4.0 (3.5-5.0) g/dL 11/26/20 11/26/20 11/26/20 Range/Units 11:10 11:10 11:10 WBC (3.8-10.6) k/uL RBC (4.30-5.90) m/uL Hgb (13.0-17.5) gm/dL Hct (39.0-53.0) % MCV (80.0-100.0) fL MCH (25.0-35.0) pg MCHC (31.0-37.0) g/dL RDW (11.5-15.5) % Plt Count (150-450) k/uL MPV Neutrophils % % Lymphocytes % % Monocytes % % Eosinophils % % Basophils % % Neutrophils # (1.3-7.7) k/uL Lymphocytes # (1.0-4.8) k/uL Monocytes # (0-1.0) k/uL Eosinophils # (0-0.7) k/uL Basophils # (0-0.2) k/uL Manual Slide Review Poikilocytosis (manual Anisocytosis (manual) Macrocytosis PT (9.0-12.0) sec INR (<1.2) APTT (22.0-30.0) sec D-Dimer (<0.60) mg/L FEU Sodium (137-145) mmol/L Potassium (3.5-5.1) mmol/L Chloride (98-107) mmol/L Carbon Dioxide (22-30) mmol/L Anion Gap mmol/L BUN (9-20) mg/dL Creatinine (0.66-1.25) mg/dL Est GFR (CKD-EPI)AfAm (>60 ml/min/1.73 sqM) Est GFR (CKD-EPI)NonAf (>60 ml/min/1.73 sqM) Glucose (74-99) mg/dL Plasma Lactic Acid Michael 1.7 (0.7-2.0) mmol/L Calcium (8.4-10.2) mg/dL Magnesium (1.6-2.3) mg/dL Total Bilirubin (0.2-1.3) mg/dL AST (17-59) U/L ALT (4-49) U/L Alkaline Phosphatase (38-126) U/L Troponin I <0.012 (0.000-0.034) ng/mL NT-Pro-B Natriuret Pep 498 pg/mL Total Protein (6.3-8.2) g/dL Albumin (3.5-5.0) g/dL Critical Care Time Critical Care Time: Yes Total Critical Care Time: 35 Disposition Clinical Impression: History of lung cancer, New onset atrial flutter Disposition: ADMITTED IP TO THIS [facility] Referrals: Renan Gonzalez MD [Primary Care Provider] - 1-2 days Time of Disposition: 14:29
--- NOTE | 2020-11-26 11:27 | XR ---
EXAMINATION TYPE: XR chest 2V DATE OF EXAM: 11/26/2020 COMPARISON: 11/12/2020 TECHNIQUE: PA and lateral views submitted. HISTORY: Difficulty breathing FINDINGS: Diffuse interstitial pattern with basilar subsegmental infiltrate. Heart size stable. Biapical pleura l thickening. Arthropathy of the shoulders with diffuse osteopenia. Degenerative changes of the spine . Chronic appearing superior endplate compression deformity lower thoracic spine. IMPRESSION: 1. COPD with findings suggestive of interstitial pulmonary fibrosis. Correlate for superimposed inter stitial pneumonitis.
[2020-11-26 11:28] LABS: Basophils # (A) 0.1 k/uL (0-0.2); Basophils % (A) 1 %; Eosinophils # (A) 0.1 k/uL (0-0.7); Eosinophils % (A) 0 %; HCT 51.4 % (39.0-53.0); HGB 16.8 gm/dL (13.0-17.5); Lymphocytes # (A) 2.6 k/uL (1.0-4.8); Lymphocytes % (A) 17 %; MCH 36.3 pg (25.0-35.0); MCHC 32.7 g/dL (31.0-37.0); MCV 110.9 fL (80.0-100.0); Macrocytosis Marked; Mean Platelet Volume 7.6; Monocytes % (A) 6 %; Neutrophils # (A) 11.2 k/uL (1.3-7.7); Neutrophils % (A) 74 %; Platelet Count 144 k/uL (150-450); RBC 4.64 m/uL (4.30-5.90); RDW 15.3 % (11.5-15.5)
[2020-11-26 11:38] LABS: ALT 81 U/L (4-49); AST 64 U/L (17-59); African American GFR (CKD) >90 (>60 ml/min/1.73 sqM); Alkaline Phosphatase 149 U/L (38-126); Anion Gap 10 mmol/L; Blood Urea Nitrogen 11 mg/dL (9-20); Calcium 9.2 mg/dL (8.4-10.2); Carbon Dioxide 22 mmol/L (22-30); Chloride 100 mmol/L (98-107); Glucose 150 mg/dL (74-99); Magnesium 2.1 mg/dL (1.6-2.3); Non-African American GFR(CKD) >90 (>60 ml/min/1.73 sqM); Sodium 132 mmol/L (137-145); Total Bilirubin 0.8 mg/dL (0.2-1.3); Total Protein 7.3 g/dL (6.3-8.2)
[2020-11-26 11:39] LABS: Potassium 4.7 mmol/L (3.5-5.1)
[2020-11-26 11:44] LABS: INR 1.1 (<1.2); Partial Thromboplastin Time 23.1 sec (22.0-30.0); Prothrombin Time 11.8 sec (9.0-12.0)
[2020-11-26] MEDS ORDERED: METOPROLOL TARTRATE 5 MG/5 ML VIAL IVP STA (12:10)
[2020-11-26 12:11] LABS: Anisocytosis (M) Present; Poikilocytosis (M) Present
[2020-11-26] MEDS ORDERED: DILTIAZEM 125 MG in SODIUM CHLORIDE 0.9% 100 ML IV SCH (12:15)
[2020-11-26] MEDS ORDERED: DILTIAZEM DRIP BOLUS FROM BAG 1 MG SOLN IV ONE (12:16)
--- NOTE | 2020-11-26 13:35 | CT ---
EXAMINATION TYPE: CT chest angio for PE DATE OF EXAM: 11/26/2020 COMPARISON: November 12, 2020 HISTORY: elevated d-dimer CT DLP: 309 mGycm CONTRAST: CT chest with contrast and 3D reconstruction with MIP imaging is performed with IV Contrast, patient injected with 100 mL of Isovue 370. Contrast-enhanced CT of the chest was performed through the course of the pulmonary arteries with abdias g and mediastinal window settings submitted. 3D reconstruction with MIP imaging was also performed. PULMONARY ARTERIES: The pulmonary arteries and their major tributaries are patent. I do not see nicholas dence for sizable filling defect to suggest pulmonary embolic process. LUNGS: Right infrahilar mass redemonstrated. Scattered bilateral pulmonary infiltrates some of which have a nodular appearance. MEDIASTINUM: Extensive mediastinal adenopathy unchanged from prior study. HILAR STRUCTURES: No evidence for mass. No hilar lymph nodes greater than 1 cm. UPPER ABDOMEN: No significant abnormality is seen. IMPRESSION: 1. No evidence for Pulmonary embolism at this time. 2. Overall no change in right infrahilar mass with scattered pulmonary nodules and infiltrates and ex tensive mediastinal adenopathy.
[2020-11-26] MEDS ORDERED: NITROGLYCERIN SL TABS 0.4 MG TAB SUBLINGUAL PRN (14:29)
--- NOTE | 2020-11-26 14:51 | P.CRDCN ---
History of Present Illness Consult date: 11/26/20 History of present illness: HISTORY OF PRESENT ILLNESS: This is a 60-year-old male with a past medical history significant for metastatic lung cancer. Patient does not follow with a lead accountant and denies any previous cardiac history. We have been asked to see the patient in consultation for atrial flutter. Patient examined at the bedside in the emergency room. Patient states he presented to the hospital secondary to shortness of breath. He reports feeling diaphoretic at home and was having some chest discomfort with coughing. Patient states he took his vital signs at home and noticed his heart rate was elevated. At the time of examination, the patient denies chest pain or pressure. He denies shortness of breath at rest. Telemetry reveals atrial flutter with a heart rate of 150. The patient currently denies palpitations. The patient's feeling member at the bedside reports that the patient had 3 chemotherapy treatments and then his platelets dropped down into the 20s and his chemotherapy was stopped. EKG reveals atrial flutter with RVR with 2-1 conduction Chest xray COPD with findings suggestive of interstitial pulmonary fibrosis. Correlate for superimposed interstitial pneumonitis. CT of the chest: No evidence for pulmonary embolism. Overall no change in right infrahilar mass with scattered pulmonary nodules and infiltrates and extensive mediastinal adenopathy. Laboratory data: WBC 15.0. Hemoglobin 16.8. Platelet count 144. Sodium 132. Potassium 4.7. BUN 11. Creatinine 0.58. ProBNP 498. Troponin negative 1. Current home cardiac medications include none REVIEW OF SYSTEMS: At the time of my exam: CONSTITUTIONAL: Denies fever or chills. HEENT: Denies blurred vision, vision changes, or eye pain. Denies hemoptysis CARDIOVASCULAR: Denies chest pain. Denies orthopnea. Denies PND. Denies palpitations RESPIRATORY: Denies shortness of breath. GASTROINTESTINAL: Denies abdominal pain. Denies nausea or vomiting. HEMATOLOGIC: Denies bleeding disorders. GENITOURINARY: Denies any blood in urine. SKIN: Denies pruitis. Denies rash. PHYSICAL EXAM: VITAL SIGNS: Reviewed. GENERAL: Well-developed in no acute distress. HEENT: Head is normocephalic. Pupils are equal, round. Sclerae anicteric. Mucous membranes of the mouth are moist. Neck supple. No JVD or thyromegaly LUNGS: Respirations even and unlabored. Lungs diminished to auscultation bilat erally. HEART: Tachycardic. Regular rate and rhythm. S1 and S2 heard. ABDOMEN: Soft. Nondistended. Nontender. EXTREMITIES: Normal range of motion. No clubbing or cyanosis. Peripheral pulses intact. No lower extremity edema NEUROLOGIC: Awake and alert. Oriented x 3. ASSESSMENT: Shortness of breath Metastatic lung cancer New onset typical atrial flutter with RVR History of thrombocytopenia after chemotherapy infusion, October 2020 PLAN: Obtain 2-D echo to assess cardiac structure and function Give metoprolol 5mg IV push 1 dose Begin Cardizem drip at 5 mg an hour after 5 mg bolus Continue telemetry monitoring Will hold off on anticoagulation at this time secondary to recent thrombocytopenia Further recommendations pending patient's course Nurse practitioner note has been reviewed by physician. Signing provider agrees with the documented findings, assessment, and plan of care. Past Medical History Past Medical History: Cancer Additional Past Medical History / Comment(s): Lung CA chemo last treatment end of September 2020. cough for 3 weeks back r/t coughing History of Any Multi-Drug Resistant Organisms: None Reported Past Surgical History: Joint Replacement Additional Past Surgical History / Comment(s): lt hip replacement Past Anesthesia/Blood Transfusion Reactions: No Reported Reaction Past Psychological History: No Psychological Hx Reported Smoking Status: Former smoker Past Alcohol Use History: None Reported Past Drug Use History: None Reported Medications and Allergies Home Medications Medication Instructions Recorded Confirmed Type Albuterol Nebulized [Ventolin 2.5 mg INHALATION RT-QID PRN 11/12/20 11/26/20 History Nebulized] Fluticasone/Umeclidin/Vilanter 1 puff INHALATION RT-DAILY PRN 11/12/20 11/26/20 History [Trelegy Ellipta 200-62.5-25] Gabapentin 300 mg PO BID-W/MEALS 11/12/20 11/26/20 History Hydrocodone Bit/Homatrop Me-Br 5 ml PO Q6H PRN 11/12/20 11/26/20 History [Hycodan 5 mg-1.5 mg/5 ml Soln] Ipratropium-Albuterol Nebulize 3 ml INHALATION RT-QID PRN 11/12/20 11/26/20 History [Duoneb 0.5 mg-3 mg/3 ml Soln] Ondansetron Odt [Zofran Odt] 4 mg PO Q8H PRN 11/12/20 11/26/20 History Pantoprazole Sodium [Protonix] 20 mg PO DAILY 11/12/20 11/26/20 History Polyethylene Glycol 3350 [Miralax] 17 gm PO DAILY 11/12/20 11/26/20 History Sennosides/Docusate Sodium 2 tab PO BID PRN 11/12/20 11/26/20 History [Senna-S 8.6-50 mg Tablet] Sulfamethox-Tmp 800-160Mg [Bactrim 1 tab PO MOWEFR 11/12/20 11/26/20 History DS 800-160 mg] oxyCODONE HCL [OxyIR] 5 - 10 mg PO Q4H PRN 11/12/20 11/26/20 History predniSONE See Taper PO DAILY 11/12/20 11/26/20 History Gabapentin [Neurontin] 600 mg PO HS 11/26/20 11/26/20 History Morphine Sulfate [Ms Contin] 60 mg PO Q12HR 11/26/20 11/26/20 History Allergies Allergy/AdvReac Type Severity Reaction Status Date / Time No Known Allergies Allergy Verified 11/26/20 12:59 Physical Exam Vitals: Vital Signs Temp Pulse Resp BP Pulse Ox 11/26/20 14:44 93 18 106/68 98 11/26/20 13:53 122 H 16 117/73 99 11/26/20 13:01 123 H 16 102/87 96 11/26/20 11:29 149 H 18 120/76 95 11/26/20 11:00 98.9 F 150 H 18 138/84 98 Intake and Output 11/25/20 11/26/20 11/26/20 22:59 06:59 14:59 Other: Weight 75.75 kg Results 11/26/20 11:10 11/26/20 11:10 Cardiac Enzymes 11/26/20 11/26/20 Range/Units 11:10 11:10 AST 64 H (17-59) U/L Troponin I <0.012 (0.000-0.034) ng/mL Coagulation 11/26/20 Range/Units 11:10 PT 11.8 (9.0-12.0) sec APTT 23.1 (22.0-30.0) sec CBC 11/26/20 Range/Units 11:10 WBC 15.0 H (3.8-10.6) k/uL RBC 4.64 (4.30-5.90) m/uL Hgb 16.8 (13.0-17.5) gm/dL Hct 51.4 (39.0-53.0) % Plt Count 144 L (150-450) k/uL Comprehensive Metabolic Panel 11/26/20 Range/Units 11:10 Sodium 132 L (137-145) mmol/L Potassium 4.7 (3.5-5.1) mmol/L Chloride 100 (98-107) mmol/L Carbon Dioxide 22 (22-30) mmol/L BUN 11 (9-20) mg/dL Creatinine 0.58 L (0.66-1.25) mg/dL Glucose 150 H (74-99) mg/dL Calcium 9.2 (8.4-10.2) mg/dL AST 64 H (17-59) U/L ALT 81 H (4-49) U/L Alkaline Phosphatase 149 H (38-126) U/L Total Protein 7.3 (6.3-8.2) g/dL Albumin 4.0 (3.5-5.0) g/dL Current Medications Generic Name Dose Route Start Last Admin Trade Name Freq PRN Reason Stop Dose Admin Aspirin 325 mg 11/27/20 09:00 Aspirin 325 Mg Tab PO DAILY NOELLE Diltiazem HCl 125 mg/ Sodium 125 mls @ 5 mls/hr 11/26/20 12:15 11/26/20 12:52 Chloride IV 5 mg/hr .Q24H NOELLE 5 mls/hr Administration 5 MG/HR Nitroglycerin 0.4 mg 11/26/20 14:29 Nitroglycerin Sl Tabs 0.4 Mg Tab SUBLINGUAL Q5M PRN Chest Pain Intake and Output 11/25/20 11/26/20 11/26/20 22:59 06:59 14:59 Other: Weight 75.75 kg Patient Weight 11/27/20 06:59 Weight 75.75 kg 11/26/20 11:10 11/26/20 11:10
[2020-11-26] MEDS ORDERED: IPRATROPIUM-ALBUTEROL 3 ML NEB INHALATION PRN (15:51)
[2020-11-26] MEDS ORDERED: UMECLIDIN BL INHALATION PRN (15:51)
[2020-11-26] MEDS ORDERED: HYDROCODONE PO PRN (15:51)
[2020-11-26] MEDS ORDERED: VILANTER INHALATION PRN (15:51)
[2020-11-26] MEDS ORDERED: ALBUTEROL NEBULIZED 2.5 MG/3 ML INHALATION PRN (15:51)
[2020-11-26] MEDS ORDERED: SENNOSIDES-DOCUSATE SODIUM 1 EACH TAB PO PRN (15:51)
[2020-11-26] MEDS ORDERED: HOMATROPINE PO PRN (15:51)
[2020-11-26] MEDS ORDERED: FLUTICASONE INHALATION PRN (15:51)
[2020-11-26] MEDS ORDERED: guaiFENesin 600 MG TABLET.ER PO PRN (15:55)
--- NOTE | 2020-11-26 16:54 | P.HPIM ---
History of Present Illness H&P Date: 11/26/20 This is a 60-year-old male with past medical history noted below significant for metastatic lung cancer and presented to the emergency room with worsening palpitation and rapid heart rate. Patient said that his symptoms started last night and is been getting progressively worse. This morning he checked his ulcerative home and he was around 155 so he decided to come to the emergency room for further evaluation. Patient denies any chest pain. He is complaining of a chronic cough. He said that cough is mostly dry. He was diagnosed with stage IV lung cancer with metastasis to the liver and bone is been following at the [facility]. Patient received 3 rounds of chemotherapy and currently scheduled to be started on oral chemotherapy. That he's not sure what sent him over. Patient and his family are not sure what kind of lung cancer he has. Patient was evaluated in the ER and will be admitted to the hospital for further management of his medical problems noted below. Review of Systems Review of system: 14 points review of systems were obtained and were negative except to what were mentioned in the HPI. Past Medical History Past Medical History: Cancer Additional Past Medical History / Comment(s): Lung CA chemo last treatment end of September 2020. cough for 3 weeks back r/t coughing History of Any Multi-Drug Resistant Organisms: None Reported Past Surgical History: Joint Replacement Additional Past Surgical History / Comment(s): lt hip replacement Past Anesthesia/Blood Transfusion Reactions: No Reported Reaction Past Psychological History: No Psychological Hx Reported Smoking Status: Former smoker Past Alcohol Use History: None Reported Past Drug Use History: None Reported Medications and Allergies Home Medications Medication Instructions Recorded Confirmed Type Albuterol Nebulized [Ventolin 2.5 mg INHALATION RT-QID PRN 11/12/20 11/26/20 History Nebulized] Fluticasone/Umeclidin/Vilanter 1 puff INHALATION RT-DAILY PRN 11/12/20 11/26/20 History [Trelegy Ellipta 200-62.5-25] Gabapentin 300 mg PO BID-W/MEALS 11/12/20 11/26/20 History Hydrocodone Bit/Homatrop Me-Br 5 ml PO Q6H PRN 11/12/20 11/26/20 History [Hycodan 5 mg-1.5 mg/5 ml Soln] Ipratropium-Albuterol Nebulize 3 ml INHALATION RT-QID PRN 11/12/20 11/26/20 History [Duoneb 0.5 mg-3 mg/3 ml Soln] Ondansetron Odt [Zofran Odt] 4 mg PO Q8H PRN 11/12/20 11/26/20 History Pantoprazole Sodium [Protonix] 20 mg PO DAILY 11/12/20 11/26/20 History Polyethylene Glycol 3350 [Miralax] 17 gm PO DAILY 11/12/20 11/26/20 History Sennosides/Docusate Sodium 2 tab PO BID PRN 11/12/20 11/26/20 History [Senna-S 8.6-50 mg Tablet] Sulfamethox-Tmp 800-160Mg [Bactrim 1 tab PO MOWEFR 11/12/20 11/26/20 History DS 800-160 mg] oxyCODONE HCL [OxyIR] 5 - 10 mg PO Q4H PRN 11/12/20 11/26/20 History predniSONE See Taper PO DAILY 11/12/20 11/26/20 History Gabapentin [Neurontin] 600 mg PO HS 11/26/20 11/26/20 History Morphine Sulfate [Ms Contin] 60 mg PO Q12HR 11/26/20 11/26/20 History Allergies Allergy/AdvReac Type Severity Reaction Status Date / Time No Known Allergies Allergy Verified 11/26/20 12:59 Physical Exam Vitals: Vital Signs Temp Pulse Resp BP Pulse Ox 11/26/20 15:02 103 H 18 126/72 96 11/26/20 14:44 93 18 106/68 98 11/26/20 13:53 122 H 16 117/73 99 11/26/20 13:01 123 H 16 102/87 96 11/26/20 11:29 149 H 18 120/76 95 11/26/20 11:00 98.9 F 150 H 18 138/84 98 Intake and Output 11/26/20 11/26/20 11/26/20 06:59 14:59 22:59 Other: Weight 75.75 kg General: The patient is awake and alert, in no distress Eye: there is normal conjunctiva bilaterally. Neck: The neck is supple, there is no JVD. Cardiovascular: Normal S1-S2, no S3-S4, no murmurs. Respiratory: Lungs clear to auscultation bilaterally Gastrointestinal: Abdomen is soft, nontender Musculoskeletal: There is no pedal edema. Neurological:. Speech is normal. Skin: Skin is warm and dry Results CBC & Chem 7: 11/26/20 11:10 11/26/20 11:10 Labs: Abnormal Lab Results - Last 24 Hours (Table) 11/26/20 11/26/20 11/26/20 Range/Units 11:10 11:10 11:10 WBC 15.0 H (3.8-10.6) k/uL MCV 110.9 H (80.0-100.0) fL MCH 36.3 H (25.0-35.0) pg Plt Count 144 L (150-450) k/uL Neutrophils # 11.2 H (1.3-7.7) k/uL Macrocytosis Marked A D-Dimer 1.45 H (<0.60) mg/L FEU Sodium 132 L (137-145) mmol/L Creatinine 0.58 L (0.66-1.25) mg/dL Glucose 150 H (74-99) mg/dL AST 64 H (17-59) U/L ALT 81 H (4-49) U/L Alkaline Phosphatase 149 H (38-126) U/L Assessment and Plan Assessment: 1. Atrial flutter with rapid ventricular response, started on IV Cardizem drip. Seen and evaluated by cardiology. Echocardiogram ordered. Anticoagulation sta rted secondary to recent thrombocytopenia and patient being on chemotherapy. I would check thyroid function test. 2. Metastatic lung cancer with liver and bone metastasis. Following at the [facility]. Scheduled to start oral chemotherapy next week 3. Chronic pain problem maintained on high-dose opiate and Neurontin 4. DVT prophylaxis with subcu Lovenox 5. CODE STATUS: Patient would like to be a full code Today, reviewed his medication list and lab work results. Continue current regimen. Telemetry monitoring.
[2020-11-26] MEDS ORDERED: BENZONATATE 100 MG CAP PO PRN (16:56)
[2020-11-26] MEDS: GABAPENTIN 300 MG CAP PO SCH (18:42)
[2020-11-26] MEDS ORDERED: guaiFENesin SYRUP 100MG/5ML 200 MG/10 ML CUP PO PRN (20:10)
[2020-11-26] MEDS: MORPHINE SULFATE ER 60 MG TABLET PO SCH (20:20)
[2020-11-26] MEDS: METOPROLOL SUCCINATE (ER) 25 MG TAB.ER.24H PO SCH (20:58)
[2020-11-26] MEDS ORDERED: MELATONIN 3 MG TABLET PO SCH (21:00)
[2020-11-26] MEDS ORDERED: GABAPENTIN 300 MG CAP PO SCH (21:00)
[2020-11-26] MEDS ORDERED: TEMAZEPAM 7.5 MG CAP PO PRN (23:35)
[2020-11-27] MEDS: GABAPENTIN 300 MG CAP PO SCH (06:39)
--- NOTE | 2020-11-27 07:17 | ECHOF ---
Referral Reason:LV function MEASUREMENTS -------- HEIGHT: 172.7 cm WEIGHT: 75.8 kg BP: IVSd: 1.5 cm (0.6 - 1.1) LVIDd: 3.1 cm (3.9 - 5.3) LVPWd: 1.6 cm (0.6 - 1.1) IVSs: 1.5 cm LVIDs: 2.5 cm LVPWs: 1.5 cm RAP: 5.00 mmHg RVSP: 18.23 mmHg FINDINGS -------- The rhythm appears to be atrial flutter. This was a technically adequate study. The left ventricular size is normal. There is moderate concentric left ventricular hypertrophy. O verall left ventricular systolic function is mild-moderately impaired with, an EF between 40 - 45 %. The right ventricle is normal in size. The left atrial size is normal. The right atrial size is normal. There is mild aortic valve sclerosis. There is no evidence of aortic regurgitation. Mild mitral annular calcification present. Mild mitral regurgitation is present. Mild tricuspid regurgitation present. Right ventricular systolic pressure is normal at < 35 mmHg. There is no pulmonic regurgitation present. Echo free space represents a pericardial fat pad. CONCLUSIONS -------- 1. The rhythm appears to be atrial flutter. 2. The left ventricular size is normal. 3. There is moderate concentric left ventricular hypertrophy. 4. Overall left ventricular systolic function is mild-moderately impaired with, an EF between 40 - 45 %. 5. The right ventricle is normal in size. 6. The left atrial size is normal. 7. The right atrial size is normal. 8. There is mild aortic valve sclerosis. 9. Mild mitral annular calcification present. 10. Mild mitral regurgitation is present. 11. Mild tricuspid regurgitation present. 12. Echo free space represents a pericardial fat pad. DATA COMMUNICATIONS ANALYST: Mine Dickson RDCS
[2020-11-27 08:15] LABS: African American GFR (CKD) >90 (>60 ml/min/1.73 sqM); Anion Gap 4 mmol/L; Blood Urea Nitrogen 8 mg/dL (9-20); Calcium 8.9 mg/dL (8.4-10.2); Carbon Dioxide 28 mmol/L (22-30); Chloride 101 mmol/L (98-107); Glucose 132 mg/dL (74-99); Non-African American GFR(CKD) >90 (>60 ml/min/1.73 sqM); Sodium 133 mmol/L (137-145)
[2020-11-27] MEDS: METOPROLOL SUCCINATE (ER) 25 MG TAB.ER.24H PO SCH (08:37)
[2020-11-27] MEDS: MORPHINE SULFATE ER 60 MG TABLET PO SCH (08:37)
[2020-11-27 08:44] LABS: Anisocytosis Slight; Basophils % (A) 0 %; Eosinophils # (A) 0.1 k/uL (0-0.7); Eosinophils % (A) 1 %; HCT 41.7 % (39.0-53.0); Lymphocytes # (A) 1.9 k/uL (1.0-4.8); Lymphocytes % (A) 20 %; MCH 36.2 pg (25.0-35.0); MCHC 32.6 g/dL (31.0-37.0); MCV 110.9 fL (80.0-100.0); Macrocytosis Marked; Mean Platelet Volume 7.5; Monocytes # (A) 0.6 k/uL (0-1.0); Monocytes % (A) 6 %; Neutrophils # (A) 6.9 k/uL (1.3-7.7); Neutrophils % (A) 72 %; Platelet Count 136 k/uL (150-450); RBC 3.76 m/uL (4.30-5.90); RDW 16.1 % (11.5-15.5); WBC 9.6 k/uL (3.8-10.6)
[2020-11-27 08:45] VITALS: RESP 16; TEMP 97.4
[2020-11-27 08:54] LABS: HGB 13.6 gm/dL (13.0-17.5)
[2020-11-27] MEDS ORDERED: ENOXAPARIN 40 MG/0.4 ML SYRINGE SQ SCH (09:00)
[2020-11-27] MEDS ORDERED: polyethylene glycoL 3350 17 GM POWD.PACK PO SCH (09:00)
[2020-11-27] MEDS ORDERED: ASPIRIN 325 MG TAB PO SCH (09:00)
[2020-11-27] MEDS ORDERED: predniSONE 10 MG TAB PO SCH (09:00)
[2020-11-27] MEDS ORDERED: PANTOPRAZOLE 40 MG TABLET PO SCH (09:00)
[2020-11-27] MEDS ORDERED: ASPIRIN 81 MG PO SCH (09:00)
[2020-11-27] MEDS ORDERED: SULFAMETHOX-TMP 800-160MG 1 EACH TAB PO SCH (09:00)
[2020-11-27 11:27] VITALS: BMI 25.1
[2020-11-27 12:21] VITALS: BP 126/72; PULSE 84
[2020-11-27 12:34] LABS: Chol/HDL Ratio 3.84; Cholesterol 165 mg/dL (0-200); LDL Cholesterol,Calculated 98.6 mg/dL (0.0-131.0)
--- NOTE | 2020-11-27 13:28 | P.PN ---
Subjective Progress Note Date: 11/27/20 HISTORY OF PRESENT ILLNESS: This is a 60-year-old male with a past medical history significant for metastatic lung cancer. Patient does not follow with a executive coordinator and denies any previous cardiac history. We have been asked to see the patient in consultation for atrial flutter. Patient examined at the bedside in the emergency room. Patient states he presented to the hospital secondary to shortness of breath. He reports feeling diaphoretic at home and was having some chest discomfort with coughing. Patient states he took his vital signs at home and noticed his heart rate was elevated. At the time of examination, the patient denies chest pain or pressure. He denies shortness of breath at rest. Telemetry reveals atrial flutter with a heart rate of 150. The patient currently denies palpitations. The patient's feeling member at the bedside reports that the patient had 3 chemotherapy treatments and then his platelets dropped down into the 20s and his chemotherapy was stopped. EKG reveals atrial flutter with RVR with 2-1 conduction Chest xray COPD with findings suggestive of interstitial pulmonary fibrosis. Correlate for superimposed interstitial pneumonitis. CT of the chest: No evidence for pulmonary embolism. Overall no change in right infrahilar mass with scattered pulmonary nodules and infiltrates and extensive mediastinal adenopathy. Laboratory data: WBC 15.0. Hemoglobin 16.8. Platelet count 144. Sodium 132. Potassium 4.7. BUN 11. Creatinine 0.58. ProBNP 498. Troponin negative 1. Current home cardiac medications include none 11/27/2020 Patient examined this morning at the bedside. Patient denies chest pain or p ressure. He denies shortness of breath. He denies palpitations. Telemetry reveals sinus mechanism. Echocardiogram completed reveals ejection fraction 40- 45%. PHYSICAL EXAM: VITAL SIGNS: Reviewed. GENERAL: Well-developed in no acute distress. HEENT: Head is normocephalic. Pupils are equal, round. Sclerae anicteric. Mucous membranes of the mouth are moist. Neck supple. No JVD or thyromegaly LUNGS: Respirations even and unlabored. Lungs diminished to auscultation bilater ally. HEART: Regular rate and rhythm. S1 and S2 heard. ABDOMEN: Soft. Nondistended. Nontender. EXTREMITIES: Normal range of motion. No clubbing or cyanosis. Peripheral pulses intact. No lower extremity edema NEUROLOGIC: Awake and alert. Oriented x 3. ASSESSMENT: Shortness of breath Metastatic lung cancer New onset paroxysmal typical atrial flutter with RVR History of thrombocytopenia after chemotherapy infusion, October 2020 PLAN: Continue metoprolol No need for anticoagulation at this time. If patient has reoccurrence of atrial fibrillation, will consider anticoagulation Stable for discharge home today from a cardiac standpoint Nurse practitioner note has been reviewed by physician. Signing provider agrees with the documented findings, assessment, and plan of care. Objective - Vital Signs Vital signs: Vital Signs Temp 97.4 F L 11/27/20 08:00 Pulse 84 11/27/20 12:00 Resp 16 11/27/20 12:00 BP 126/72 11/27/20 12:00 Pulse Ox 93 L 11/27/20 12:00 Intake & Output 11/26/20 11/27/20 11/27/20 18:59 06:59 18:59 Intake Total 240 Output Total 525 Balance 240 -525 Weight 75.75 kg 75 kg 75 kg Intake: Oral 240 Output: Urine 525 Other: Voiding Method Urinal External Catheter External Catheter # Voids 1 1 # Bowel Movements 1 - Labs CBC & Chem 7: 11/27/20 07:38 11/27/20 07:38 Labs: Abnormal Lab Results - Last 24 Hours (Table) 11/27/20 11/27/20 Range/Units 07:38 07:38 RBC 3.76 L (4.30-5.90) m/uL MCV 110.9 H (80.0-100.0) fL MCH 36.2 H (25.0-35.0) pg RDW 16.1 H (11.5-15.5) % Plt Count 136 L (150-450) k/uL Macrocytosis Marked A Sodium 133 L (137-145) mmol/L BUN 8 L (9-20) mg/dL Creatinine 0.56 L (0.66-1.25) mg/dL Glucose 132 H (74-99) mg/dL
--- NOTE | 2020-11-27 13:48 | P.DS ---
Providers Date of admission: 11/26/20 14:30 Expected date of discharge: 11/27/20 Attending physician: Alfie Lam MD Consults: 11/26/20 14:30 Consult Physician Urgent Consulting Provider: Adriano Campbell Consult Reason/Comments: New-onset atrial flutter Do you want consulting provider notified?: Yes Primary care physician: Renan Beal [facility] Course: This is a 60-year-old male with past medical history noted below significant for metastatic lung cancer and presented to the emergency room with worsening palpitation and rapid heart rate. Patient was evaluated in the ER and will be admitted to the hospital for further management of his medical problems noted below. 1. Atrial flutter with rapid ventricular response, started on IV Cardizem drip. He converted to sinus rhythm. Seen and evaluated by cardiology. Echocardiogram EF of 35-40%. Started on metoprolol 6 and 8 25 mg daily. Anticoagulation not started secondary to recent thrombocytopenia and patient being on chemotherapy. Platelet count during this admission 144. Would start aspirin 81 mg daily for stroke prevention. Thyroid function tests within normal range. 2. Metastatic lung cancer with liver and bone metastasis. Following at the [facility]. Scheduled to start oral chemotherapy next week 3. Chronic pain problem maintained on high-dose opiate and Neurontin Patient will be discharged home in a stable condition. He was seen and evaluated by me on the day of discharge. I wrote a prescription for a wheelchair. He will follow-up with his oncologist as directed. Patient Condition at Discharge: Fair Plan - Discharge Summary Discharge Rx Participant: No New Discharge Prescriptions: New Aspirin 81 mg PO DAILY #30 chew Metoprolol Succinate (ER) [Toprol XL] 25 mg PO DAILY #30 tab.er.24h Continue Sennosides/Docusate Sodium [Senna-S 8.6-50 mg Tablet] 2 tab PO BID PRN PRN Reason: Constipation oxyCODONE HCL [OxyIR] 5 - 10 mg PO Q4H PRN PRN Reason: Pain Polyethylene Glycol 3350 [Miralax] 17 gm PO DAILY Pantoprazole Sodium [Protonix] 20 mg PO DAILY Ondansetron Odt [Zofran ODT] 4 mg PO Q8H PRN PRN Reason: Nausea Albuterol Nebulized [Ventolin Nebulized] 2.5 mg INHALATION RT-QID PRN PRN Reason: Shortness Of Breath Fluticasone/Umeclidin/Vilanter [Trelegy Ellipta 200-62.5-25] 1 puff INHALATION RT-DAILY PRN PRN Reason: Shortness Of Breath Morphine Sulfate [Ms Contin] 60 mg PO Q12HR Sulfamethox-Tmp 800-160Mg [Bactrim DS 800-160 mg] 1 tab PO MOWEFR predniSONE See Taper PO DAILY Ipratropium-Albuterol Nebulize [Duoneb 0.5 mg-3 mg/3 ml Soln] 3 ml INHALATION RT-QID PRN PRN Reason: Shortness Of Breath Hydrocodone Bit/Homatrop Me-Br [Hycodan 5 mg-1.5 mg/5 ml Soln] 5 ml PO Q6H PRN PRN Reason: Cough Gabapentin 300 mg PO BID-W/MEALS Gabapentin [Neurontin] 600 mg PO HS Discharge Medication List Albuterol Nebulized [Ventolin Nebulized] 2.5 mg INHALATION RT-QID PRN 11/12/20 [History] Fluticasone/Umeclidin/Vilanter [Trelegy Ellipta 200-62.5-25] 1 puff INHALATION RT-DAILY PRN 11/12/20 [History] Gabapentin 300 mg PO BID-W/MEALS 11/12/20 [History] Hydrocodone Bit/Homatrop Me-Br [Hycodan 5 mg-1.5 mg/5 ml Soln] 5 ml PO Q6H PRN 11/12/20 [History] Ipratropium-Albuterol Nebulize [Duoneb 0.5 mg-3 mg/3 ml Soln] 3 ml INHALATION RT-QID PRN 11/12/20 [History] Ondansetron Odt [Zofran ODT] 4 mg PO Q8H PRN 11/12/20 [History] Pantoprazole Sodium [Protonix] 20 mg PO DAILY 11/12/20 [History] Polyethylene Glycol 3350 [Miralax] 17 gm PO DAILY 11/12/20 [History] Sennosides/Docusate Sodium [Senna-S 8.6-50 mg Tablet] 2 tab PO BID PRN 11/12/20 [History] Sulfamethox-Tmp 800-160Mg [Bactrim DS 800-160 mg] 1 tab PO MOWEFR 08/10/21 [History] oxyCODONE HCL [OxyIR] 5 - 10 mg PO Q4H PRN 11/12/20 [History] predniSONE See Taper PO DAILY 11/12/20 [History] Gabapentin [Neurontin] 600 mg PO HS 11/26/20 [History] Morphine Sulfate [Ms Contin] 60 mg PO Q12HR 11/26/20 [History] Aspirin 81 mg PO DAILY #30 chew 11/27/20 [Rx] Metoprolol Succinate (ER) [Toprol XL] 25 mg PO DAILY #30 tab.er.24h 11/27/20 [Rx] Follow up Appointment(s)/Referral(s): Renan Gonzalez MD [Primary Care Provider] - 1-2 days [facility] Visiting Nurse, [NON-STAFF] - Activity/Diet/Wound Care/Special Instructions: Patient will require a wheelchair to complete ADLs and unable to do this with a cane or walker due to Lung Cancer, weakness, shortness of breath. He has someone to propel him. Discharge Disposition: HOME SELF-CARE
== END 2020-11-27 16:07 | disposition home or self-care (01) | DRG 309 ==
LOC: EC 10:57 → 3SCARD 14:30
PROVIDERS: ADMIT Internal Medicine; ATTEND Internal Medicine
DX: I48.3 Typical atrial flutter (principal); C78.7 Secondary malignant neoplasm of liver and intrahepatic bile duct; C34.90 Malignant neoplasm of unspecified part of unspecified bronchus or lung; C79.51 Secondary malignant neoplasm of bone; R06.02 Shortness of breath; Z87.891 Personal history of nicotine dependence; Z92.21 Personal history of antineoplastic chemotherapy; D69.6 Thrombocytopenia, unspecified; G89.29 Other chronic pain; J44.9 Chronic obstructive pulmonary disease, unspecified; Z96.642 Presence of left artificial hip joint; Z79.899 Other long term (current) drug therapy
CPT/HCPCS: 36415; 71046; 71275; 80048; 80053; 80061; 83605; 83735; 83880; 84443; 84484; 85025; 85379; 85610; 85730; 93005; 93306; 96365; 96366; 96375; 99291

== ENCOUNTER 2020-12-12 13:35 | Inpatient (IN) | payer BC ==
[2020-12-12] MEDS ORDERED: SODIUM CHLORIDE 0.9% 500 ML 500 ML IV STA (14:58)
[2020-12-12] MEDS ORDERED: SODIUM CHLORIDE 0.9% 1,000 ML IV STA (14:58)
--- NOTE | 2020-12-12 15:01 | ED ---
General Adult HPI - General Chief complaint: Dizziness Stated complaint: dizziness,tachycardia Time Seen by Provider: 12/12/20 13:50 Source: patient, EMS, RN notes reviewed, old records reviewed Mode of arrival: EMS Limitations: no limitations - History of Present Illness Initial comments: This is a 60-year-old male with past medical history significant for metastatic lung cancer. Patient states he received chemo about a week ago and over the last few days she's been having increased cough shortness of breath and lightheadedness. Patient denies any injury trauma patient denies any fall. Patient denies chest pain or palpitations. Patient denies any abdominal pain patient denies any nausea vomiting or diarrhea. Patient states he does have a h istory of some thrombocytopenia. Patient denies any recent fever chills or cough. Patient denies any headache patient denies numbness weakness. - Related Data Home Medications Medication Instructions Recorded Confirmed Gabapentin 300 mg PO BID@0900,1500 11/12/20 12/12/20 Hydrocodone Bit/Homatrop Me-Br 5 ml PO Q6H PRN 11/12/20 12/12/20 [Hycodan 5 mg-1.5 mg/5 ml Soln] Pantoprazole Sodium [Protonix] 20 mg PO DAILY 11/12/20 12/12/20 Polyethylene Glycol 3350 [Miralax] 17 gm PO DAILY 11/12/20 12/12/20 oxyCODONE HCL [OxyIR] 5 - 10 mg PO Q4H PRN 11/12/20 12/12/20 Gabapentin [Neurontin] 600 mg PO HS 11/26/20 12/12/20 Morphine Sulfate [Ms Contin] 60 mg PO Q12H 11/26/20 12/12/20 Hycamtin 0.25mg 0.5 mg PO DIRECTED 12/12/20 12/12/20 Hycamtin 1mg 3 mg PO DIRECTED 12/12/20 12/12/20 Loperamide HCl [Imodium] 2 - 4 mg PO TID PRN 12/12/20 12/12/20 Ondansetron Odt [Zofran Odt] 8 mg PO Q8H PRN 12/12/20 12/12/20 Pegfilgrastim [Neulasta] 6 mg SQ Q21D 12/12/20 12/12/20 Phenylephrine HCl [Sudafed PE] 10 mg PO Q4H PRN 12/12/20 12/12/20 Sennosides [Senna] 17.2 mg PO BID PRN 12/12/20 12/12/20 Previous Rx's Medication Instructions Recorded Metoprolol Succinate (ER) [Toprol 25 mg PO DAILY #30 tab.er.24h 11/27/20 XL] Allergies Allergy/AdvReac Type Severity Reaction Status Date / Time No Known Allergies Allergy Verified 12/12/20 18:01 Review of Systems ROS Statement: Those systems with pertinent positive or pertinent negative responses have been documented in the HPI. ROS Other: All systems not noted in ROS Statement are negative. Past Medical History Past Medical History: Cancer Additional Past Medical History / Comment(s): Lung CA chemo last treatment end of September 2020 History of Any Multi-Drug Resistant Organisms: None Reported Past Surgical History: Joint Replacement Additional Past Surgical History / Comment(s): lt hip replacement Past Anesthesia/Blood Transfusion Reactions: No Reported Reaction Past Psychological History: No Psychological Hx Reported Smoking Status: Former smoker Past Alcohol Use History: None Reported Past Drug Use History: None Reported - Past Family History Father Family Medical History: Cancer Additional Family Medical History / Comment(s): lung cancer General Exam - General Exam Comments Initial Comments: GENERAL: Patient is well-developed and well-nourished. Patient is nontoxic and well- hydrated and is in mild distress. ENT: Neck is soft and supple. No significant lymphadenopathy is noted. Oropharynx is clear. Moist mucous membranes. Neck has full range of motion without eliciting any pain. EYES: The sclera were anicteric and conjunctiva were pink and moist. Extraocular movements were intact and pupils were equal round and reactive to light. Eyelids were unremarkable. PULMONARY: Unlabored respirations. Good breath sounds bilaterally. No audible rales rhonchi or wheezing was noted. CARDIOVASCULAR: Patient is tachycardic at about 120 beats a minute. ABDOMEN: Soft and nontender with normal bowel sounds. SKIN: Patient's skin is very pale NEUROLOGIC: Patient is alert and oriented x3. Cranial nerves II through XII are grossly intact. Motor and sensory are also intact. Normal speech, volume and content. Symmetrical smile. MUSCULOSKELETAL: Normal extremities with adequate strength and full range of motion. LYMPHATICS: No significant lymphadenopathy is noted PSYCHIATRIC: Normal psychiatric evaluation. Limitations: no limitations Course Vital Signs 12/12/20 12/12/20 12/12/20 13:49 14:55 15:00 Temperature 98.4 F Pulse Rate 122 H 123 H 121 H Pulse Rate [ Sitting] Pulse Rate [ Standing] Pulse Rate [ Supine] Respiratory 16 18 18 Rate Blood Pressure 88/57 92/56 91/60 Blood Pressure [Left Arm Sitting] Blood Pressure [Left Arm Standing] Blood Pressure [Left Arm Supine] O2 Sat by Pulse 100 100 100 Oximetry 12/12/20 12/12/20 12/12/20 15:39 16:00 16:46 Temperature 98.5 F 97.3 F L 97.3 F L Pulse Rate 116 H 116 H Pulse Rate [ 124 H Sitting] Pulse Rate [ 138 H Standing] Pulse Rate [ 122 H Supine] Respiratory 18 18 Rate Blood Pressure 107/58 107/58 Blood Pressure 92/54 [Left Arm Sitting] Blood Pressure 75/52 [Left Arm Standing] Blood Pressure 83/52 [Left Arm Supine] O2 Sat by Pulse 100 98 100 Oximetry 12/12/20 12/12/20 12/12/20 16:56 17:00 17:26 Temperature 99.1 F 97.8 F Pulse Rate 120 H 117 H 120 H Pulse Rate [ Sitting] Pulse Rate [ Standing] Pulse Rate [ Supine] Respiratory 20 20 20 Rate Blood Pressure 109/61 95/59 Blood Pressure [Left Arm Sitting] Blood Pressure [Left Arm Standing] Blood Pressure [Left Arm Supine] O2 Sat by Pulse 100 96 96 Oximetry 12/12/20 18:00 Temperature 97.8 F Pulse Rate 120 H Pulse Rate [ Sitting] Pulse Rate [ Standing] Pulse Rate [ Supine] Respiratory 20 Rate Blood Pressure 95/59 Blood Pressure [Left Arm Sitting] Blood Pressure [Left Arm Standing] Blood Pressure [Left Arm Supine] O2 Sat by Pulse 96 Oximetry Medical Decision Making - Medical Decision Making EKG shows sinus tachycardia at 117 bpm AK interval 160 QRS 104 Q-T intervals 322 QTC is 449. Patient's EKG shows no ST segment elevation or depression. Because the patient was thrombocytopenic and anemic I gave the patient 1 unit of platelets and packed red blood cells. I spoke with Dr. Gonzalez and he agreed to admit the patient and the patient I consult the oncology I spoke with Dr. Chavez he agreed to admit the patient I admitted the patient. I spoke with Dr. Neville he understood that I was giving platelets and packed red blood cells and he was fine with this at this time. - Lab Data Result diagrams: 12/12/20 15:00 12/12/20 15:00 Lab Results 12/12/20 12/12/20 12/12/20 Range/Units 15:00 15:00 15:00 WBC 2.0 L (3.8-10.6) k/uL RBC 1.53 L (4.30-5.90) m/uL Hgb 5.7 L* D (13.0-17.5) gm/dL Hct 16.6 L* (39.0-53.0) % MCV 108.1 H (80.0-100.0) fL MCH 37.4 H (25.0-35.0) pg MCHC 34.6 (31.0-37.0) g/dL RDW 15.1 (11.5-15.5) % Plt Count 4 L* D (150-450) k/uL MPV 6.9 Neutrophils % (Manual) 41 % Band Neuts % (Manual) 3 % Lymphocytes % (Manual) 55 % Monocytes % (Manual) 1 % Neutrophils # (Manual) 0.80 L (1.3-7.7) k/uL Lymphocytes # (Manual) 1.10 (1.0-4.8) k/uL Monocytes # (Manual) 0.02 (0-1.0) k/uL Nucleated RBCs 0 (0-0) /100 WBC Manual Slide Review Performed Poikilocytosis (manual Present Macrocytosis Marked A PT 12.5 H (9.0-12.0) sec INR 1.2 H (<1.2) APTT 20.1 L (22.0-30.0) sec D-Dimer 1.04 H (<0.60) mg/L FEU Sodium 133 L (137-145) mmol/L Potassium 4.0 (3.5-5.1) mmol/L Chloride 100 (98-107) mmol/L Carbon Dioxide 25 (22-30) mmol/L Anion Gap 8 mmol/L BUN 21 H (9-20) mg/dL Creatinine 0.55 L (0.66-1.25) mg/dL Est GFR (CKD-EPI)AfAm >90 (>60 ml/min/1.73 sqM) Est GFR (CKD-EPI)NonAf >90 (>60 ml/min/1.73 sqM) Glucose 193 H (74-99) mg/dL Calcium 8.1 L (8.4-10.2) mg/dL Magnesium 2.0 (1.6-2.3) mg/dL Total Bilirubin 0.5 (0.2-1.3) mg/dL AST 33 (17-59) U/L ALT 36 (4-49) U/L Alkaline Phosphatase 76 (38-126) U/L Troponin I (0.000-0.034) ng/mL NT-Pro-B Natriuret Pep pg/mL Total Protein 5.5 L (6.3-8.2) g/dL Albumin 2.9 L (3.5-5.0) g/dL Acetone, Qual (Negative) Coronavirus (PCR) (Not Detectd) Blood Type Blood Type Recheck Bld Type Recheck Status Antibody Screen Crossmatch Spec Expiration Date 12/12/20 12/12/20 12/12/20 Range/Units 15:00 15:00 15:00 WBC (3.8-10.6) k/uL RBC (4.30-5.90) m/uL Hgb (13.0-17.5) gm/dL Hct (39.0-53.0) % MCV (80.0-100.0) fL MCH (25.0-35.0) pg MCHC (31.0-37.0) g/dL RDW (11.5-15.5) % Plt Count (150-450) k/uL MPV Neutrophils % (Manual) % Band Neuts % (Manual) % Lymphocytes % (Manual) % Monocytes % (Manual) % Neutrophils # (Manual) (1.3-7.7) k/uL Lymphocytes # (Manual) (1.0-4.8) k/uL Monocytes # (Manual) (0-1.0) k/uL Nucleated RBCs (0-0) /100 WBC Manual Slide Review Poikilocytosis (manual Macrocytosis PT (9.0-12.0) sec INR (<1.2) APTT (22.0-30.0) sec D-Dimer (<0.60) mg/L FEU Sodium (137-145) mmol/L Potassium (3.5-5.1) mmol/L Chloride (98-107) mmol/L Carbon Dioxide (22-30) mmol/L Anion Gap mmol/L BUN (9-20) mg/dL Creatinine (0.66-1.25) mg/dL Est GFR (CKD-EPI)AfAm (>60 ml/min/1.73 sqM) Est GFR (CKD-EPI)NonAf (>60 ml/min/1.73 sqM) Glucose (74-99) mg/dL Calcium (8.4-10.2) mg/dL Magnesium (1.6-2.3) mg/dL Total Bilirubin (0.2-1.3) mg/dL AST (17-59) U/L ALT (4-49) U/L Alkaline Phosphatase (38-126) U/L Troponin I 0.027 (0.000-0.034) ng/mL NT-Pro-B Natriuret Pep 211 pg/mL Total Protein (6.3-8.2) g/dL Albumin (3.5-5.0) g/dL Acetone, Qual (Negative) Coronavirus (PCR) (Not Detectd) Blood Type A Positive Blood Type Recheck A Pos Bld Type Recheck Status No Antibody Screen NEGATIVE Crossmatch See Detail Spec Expiration Date 12/15/2020 - 229912/12/20 12/12/20 Range/Units 15:00 15:29 WBC (3.8-10.6) k/uL RBC (4.30-5.90) m/uL Hgb (13.0-17.5) gm/dL Hct (39.0-53.0) % MCV (80.0-100.0) fL MCH (25.0-35.0) pg MCHC (31.0-37.0) g/dL RDW (11.5-15.5) % Plt Count (150-450) k/uL MPV Neutrophils % (Manual) % Band Neuts % (Manual) % Lymphocytes % (Manual) % Monocytes % (Manual) % Neutrophils # (Manual) (1.3-7.7) k/uL Lymphocytes # (Manual) (1.0-4.8) k/uL Monocytes # (Manual) (0-1.0) k/uL Nucleated RBCs (0-0) /100 WBC Manual Slide Review Poikilocytosis (manual Macrocytosis PT (9.0-12.0) sec INR (<1.2) APTT (22.0-30.0) sec D-Dimer (<0.60) mg/L FEU Sodium (137-145) mmol/L Potassium (3.5-5.1) mmol/L Chloride (98-107) mmol/L Carbon Dioxide (22-30) mmol/L Anion Gap mmol/L BUN (9-20) mg/dL Creatinine (0.66-1.25) mg/dL Est GFR (CKD-EPI)AfAm (>60 ml/min/1.73 sqM) Est GFR (CKD-EPI)NonAf (>60 ml/min/1.73 sqM) Glucose (74-99) mg/dL Calcium (8.4-10.2) mg/dL Magnesium (1.6-2.3) mg/dL Total Bilirubin (0.2-1.3) mg/dL AST (17-59) U/L ALT (4-49) U/L Alkaline Phosphatase (38-126) U/L Troponin I (0.000-0.034) ng/mL NT-Pro-B Natriuret Pep pg/mL Total Protein (6.3-8.2) g/dL Albumin (3.5-5.0) g/dL Acetone, Qual Negative (Negative) Coronavirus (PCR) Not Detected (Not Detectd) Blood Type Blood Type Recheck Bld Type Recheck Status Antibody Screen Crossmatch Spec Expiration Date Critical Care Time Critical Care Time: Yes Total Critical Care Time: 35 Disposition Clinical Impression: Anemia, Thrombocytopenia, Dyspnea, Lightheaded, History of lung cancer Disposition: ADMITTED IP TO THIS [facility] Time of Disposition: 18:05
[2020-12-12 15:16] LABS: MCH 37.4 pg (25.0-35.0); MCHC 34.6 g/dL (31.0-37.0); MCV 108.1 fL (80.0-100.0); Macrocytosis Marked; Mean Platelet Volume 6.9; RBC 1.53 m/uL (4.30-5.90); RDW 15.1 % (11.5-15.5)
[2020-12-12 15:25] LABS: ALT 36 U/L (4-49); AST 33 U/L (17-59); African American GFR (CKD) >90 (>60 ml/min/1.73 sqM); Albumin 2.9 g/dL (3.5-5.0); Alkaline Phosphatase 76 U/L (38-126); Anion Gap 8 mmol/L; Blood Urea Nitrogen 21 mg/dL (9-20); Calcium 8.1 mg/dL (8.4-10.2); Carbon Dioxide 25 mmol/L (22-30); Chloride 100 mmol/L (98-107); Glucose 193 mg/dL (74-99); Non-African American GFR(CKD) >90 (>60 ml/min/1.73 sqM); Sodium 133 mmol/L (137-145); Total Bilirubin 0.5 mg/dL (0.2-1.3); Total Protein 5.5 g/dL (6.3-8.2)
[2020-12-12 15:32] LABS: INR 1.2 (<1.2); Partial Thromboplastin Time 20.1 sec (22.0-30.0); Prothrombin Time 12.5 sec (9.0-12.0)
[2020-12-12 15:34] LABS: HGB 5.7 gm/dL (13.0-17.5)
[2020-12-12 15:35] LABS: HCT 16.6 % (39.0-53.0)
[2020-12-12 16:43] LABS: Band Neutrophils % 3 %; Monocytes # (M) 0.02 k/uL (0-1.0); Neutrophils % (M) 41 %; Nucleated Red Blood Cells 0 /100 WBC (0-0); Total Cells Counted 100
[2020-12-12 16:46] LABS: Poikilocytosis (M) Present
[2020-12-12 16:47] LABS: Platelet Count 4 k/uL (150-450)
--- NOTE | 2020-12-12 17:37 | XR ---
EXAMINATION TYPE: XR chest 2V DATE OF EXAM: 12/12/2020 CLINICAL HISTORY: Chest Pain. TECHNIQUE: Frontal and lateral view of the chest. COMPARISON: 11/26/2020 chest x-ray and CTA chest FINDINGS: The cardiomediastinal silhouette is within normal limits for size. There are extensive int erstitial opacities, perihilar soft tissue prominence, and biapical pleural thickening which is uncha nged. No pleural effusion. No pneumothorax seen. No acute displaced osseous fracture. IMPRESSION: No significant interval change in extensive interstitial lung disease, perihilar soft tissue prominen ce, and biapical pleural thickening versus 11/26/2020.
[2020-12-12] MEDS ORDERED: NALOXONE 0.4 MG/ML 1 ML VIAL IV PRN (18:05)
--- NOTE | 2020-12-12 19:05 | P.CNPUL ---
History of Present Illness Consult date: 12/12/20 Reason for consult: dyspnea Chief complaint: Pancytopenia, lung cancer History of present illness: 60-year-old male patient with metastatic small cell lung cancer who is currently undergoing oral chemotherapy with topotecan a total of 3.5 mg 5 days on 21 days off. This was given to him through the [facility]. I diagnosis patient having metastatic small cell lung cancer back in June 2020. At that time, the patient he started having worsening shortness of breath and he was seen by his primary care physician he was diagnosed having a pneumonia of the right lower lobe. Following that he was given antibiotics and steroids without much help. Upon follow-up, he was referred for a CAT scan of the chest and the CAT scan of the chest was completed at [facility] on 06/07/2020. I had the chance in reviewing the CAT scan images and the patient was found to have some mild to moderate emphysematous changes in the upper lobes bilaterally. There was however a right hilar mass/masslike consolidation and mediastinal lymphadenopathy involving the right paratracheal and subcarinal lesion and there was an abnormal right tracheobronchial masslike lymph node measuring 2.7 x 2.1 cm in size. There was also paratracheal lymph nodes and these were extending to the superior mediastinum. There were also smaller hepatic lesions which obviously raises the concern for malignancy. For that reason, the patient was referred to me with a concern of lung cancer. Clinically, the patient had some exertional dyspnea and shortness of breath. He has no hemoptysis. He has no weight loss. He has been sweating at nighttime. No fever. No chills. No change in his appetite. No change in voice. I performed a bronchoscopy on this patient and diagnosis small cell lung cancer was established. I performed a bronchoscopy and the diagnosis was consistent with small cell lung cancer. The patient has had some subsequent MRI of the brain that came back negative for metastases. His PET scan showed advanced stage right lung neoplasm with abnormal thoracic and supraclavicular lymphadenopathy and there was hepatic and osseous involvement. The patient had also suspicious subcentimeter focus in the region of the pancrea tic tail and possible involvement of the left pubic bone, subtle sclerosis of the level of the left pubic bone in addition to proximal right femoral lesion at the level of the intertrochanteric area and the patient also had some mild height loss at the level of T12 vertebra with mild hypermetabolic activity. The patient was referred for oncology. He did not have a good encounter with Dr. REID and subsequently ended up going to [facility]. He was hospitalized immediately at [facility] and he was started on systemic chemotherapy and he has been also started on immunotherapy. I'm not sure of the exact regimen however my suspicion is that the patient is receiving a combination of carb oplatinum, VOCAL ARTIST-16 and Tecentric. Follow-up CAT scan of the chest that was done on 11/12/2020 showed a large right hilar and mediastinal mass with encasement of the right main pulmonary artery and the right sided bronchus intermedius/right lower lobe with secondary narrowing.. There was also by peripheral increased lung markings possibly consistent with metastatic disease. Multiple enlarging hypodense lesions in liver lesions were also seen. A follow-up CAT scan of the chest that was also done on 11/26/2020 showed essentially unchanged findings. At that point, the patient was seen again at the [facility] and the patient was given topotecan and the patient has already received one round of oral chemotherapy. He received Neulasta. He is presenting today to the burst department because of worsening shortness of breath over the past 1 week. The patient was having lower GI bleed with bright red blood per rectum. The patient started having lower GI bleed around 2-3 days ago and the patient was having several bouts on a daily basis. He arrived to the hospital and he stated count was 4 and his hemoglobin was at 5.7 with a white cell count of 2. Normal coagulation profile. Normal electrolytes. LFTs were normal.: 19 testing was negative. Chest x-ray showed a right infrahilar soft tissue density in the patient had increased interstitial markings bilaterally seen on a previous chest x-ray also. At this point in time, the patient is on 2 L about 2 by nasal cannula. The patient is sinus tachycardia with a heart rate in the 160-120 range. No hematemesis. No abdominal pain. Altered mental status. He already has received a unit of packed RBC. Platelets have been ordered. Another unit of packed RBC has been ordered. He was given a total of 1.5 L of normal saline in the emergency department. Review of Systems Constitutional: Reports fatigue, Reports lethargy, Reports weakness Eyes: denies as per HPI, denies blurred vision, denies bulging eye, denies decreased vision, denies diplopia, denies discharge, denies dry eye, denies irritation, denies itching, denies pain, denies photophobia, denies loss of peripheral vision, denies loss of vision, denies tunnel vision/blind spots Ears: deny: decreased hearing, ear discharge, earache, tinnitus Ears, nose, mouth and throat: Reports as per HPI Breasts: absent: as per HPI, gynecomastia Cardiovascular: Reports decreased exercise tolerance, Reports dyspnea on exertion Respiratory: Reports dyspnea Gastrointestinal: Reports BRBPR, Reports loss of appetite Genitourinary: Reports as per HPI Musculoskeletal: Reports as per HPI Musculoskeletal: absent: ankle pain, ankle stiffness, ankle swelling, as per HPI, elbow pain, elbow stiffness, elbow swelling, foot pain, foot stiffness, foot swelling, hand pain, hand stiffness, hand swelling, hip pain, hip stiffness, hip swelling, knee pain, knee stiffness, knee swelling, shoulder pain, shoulder stiffness, shoulder swelling, wrist pain, wrist stiffness, wrist swelling Integumentary: Reports as per HPI Neurological: Reports aphasia, Reports weakness Psychiatric: Reports as per HPI Endocrine: Reports as per HPI, Reports fatigue Hematologic/Lymphatic: Reports as per HPI, Reports easy bleeding Allergic/Immunologic: Reports as per HPI Past Medical History Past Medical History: Cancer Additional Past Medical History / Comment(s): Metastatic small cell lung cancer, COPD History of Any Multi-Drug Resistant Organisms: None Reported Past Surgical History: Joint Replacement Additional Past Surgical History / Comment(s): lt hip replacement Past Anesthesia/Blood Transfusion Reactions: No Reported Reaction Past Psychological History: No Psychological Hx Reported Smoking Status: Former smoker Past Alcohol Use History: None Reported Past Drug Use History: None Reported - Past Family History Father Family Medical History: Cancer Additional Family Medical History / Comment(s): lung cancer Medications and Allergies Home Medications Medication Instructions Recorded Confirmed Type Gabapentin 300 mg PO BID@0900,1500 11/12/20 12/12/20 History Hydrocodone Bit/Homatrop Me-Br 5 ml PO Q6H PRN 11/12/20 12/12/20 History [Hycodan 5 mg-1.5 mg/5 ml Soln] Pantoprazole Sodium [Protonix] 20 mg PO DAILY 11/12/20 12/12/20 History Polyethylene Glycol 3350 [Miralax] 17 gm PO DAILY 11/12/20 12/12/20 History oxyCODONE HCL [OxyIR] 5 - 10 mg PO Q4H PRN 11/12/20 12/12/20 History Gabapentin [Neurontin] 600 mg PO HS 11/26/20 12/12/20 History Morphine Sulfate [Ms Contin] 60 mg PO Q12H 11/26/20 12/12/20 History Metoprolol Succinate (ER) [Toprol 25 mg PO DAILY #30 tab.er.24h 11/27/20 12/12/20 Rx XL] Hycamtin 0.25mg 0.5 mg PO DIRECTED 12/12/20 12/12/20 History Hycamtin 1mg 3 mg PO DIRECTED 12/12/20 12/12/20 History Loperamide HCl [Imodium] 2 - 4 mg PO TID PRN 12/12/20 12/12/20 History Ondansetron Odt [Zofran Odt] 8 mg PO Q8H PRN 12/12/20 12/12/20 History Pegfilgrastim [Neulasta] 6 mg SQ Q21D 12/12/20 12/12/20 History Phenylephrine HCl [Sudafed PE] 10 mg PO Q4H PRN 12/12/20 12/12/20 History Sennosides [Senna] 17.2 mg PO BID PRN 12/12/20 12/12/20 History Allergies Allergy/AdvReac Type Severity Reaction Status Date / Time No Known Allergies Allergy Verified 12/12/20 18:01 Physical Exam Vitals: Vital Signs Temp Pulse Pulse Pulse Pulse Resp BP 12/12/20 18:00 97.8 F 120 H 20 95/59 12/12/20 17:26 97.8 F 120 H 20 95/59 12/12/20 17:00 117 H 20 12/12/20 16:56 99.1 F 120 H 20 109/61 12/12/20 16:46 97.3 F L 116 H 18 107/58 12/12/20 16:00 97.3 F L 116 H 18 107/58 12/12/20 15:39 98.5 F 124 H 138 H 122 H 12/12/20 15:00 121 H 18 91/60 12/12/20 14:55 123 H 18 92/56 12/12/20 13:49 98.4 F 122 H 16 88/57 BP BP BP Pulse Ox 12/12/20 18:00 96 12/12/20 17:26 96 12/12/20 17:00 96 12/12/20 16:56 100 12/12/20 16:46 100 12/12/20 16:00 98 12/12/20 15:39 92/54 75/52 83/52 100 12/12/20 15:00 100 12/12/20 14:55 100 12/12/20 13:49 100 Intake and Output 12/12/20 12/12/20 12/12/20 06:59 14:59 22:59 Intake Total 0 Balance 0 Intake: Blood Product 0 Rc As-1 Unit 0 [id number] Other: Weight 75.75 kg General appearance the patient is pale, mild degree of respiratory distress, currently on 2 L of oxygen by nasal cannula. Head exam was generally normal. There was no scleral icterus or corneal arcus. Mucous membranes were moist. Neck was supple and without jugular venous distension, thyromegaly, or carotid bruits. Carotids were easily palpable bilaterally. There was no adenopathy. Lungs sounds are diminished specially in the right lung base along with some bibasilar crackles. Heart sounds are tachycardic, positive S1-S2 and regular. No cervical murmurs appreciated. Abdominal exam revealed normal bowel sounds. The abdomen was soft, non-tender, and without masses, organomegaly, or appreciable enlargement of the abdominal aorta. Examination of the extremities revealed easily palpable radial, femoral and pedal pulses. There was no cyanosis, clubbing or edema. Examination of the skin revealed no evidence of significant rashes, suspicious appearing nevi or other concerning lesions. Neurologically, the patient is awake and alert and the patient does not have any focal neurological deficit. Cranial nerves are essentially intact. Results - Laboratory Findings CBC and BMP: 12/12/20 15:00 12/12/20 15:00 PT/INR, D-dimer PT 12.5 sec (9.0-12.0) H 12/12/20 15:00 INR 1.2 (<1.2) H 12/12/20 15:00 D-Dimer 1.04 mg/L FEU (<0.60) H 12/12/20 15:00 Abnormal lab findings: Abnormal Labs 12/12/20 12/12/20 12/12/20 15:00 15:00 15:00 WBC 2.0 L RBC 1.53 L Hgb 5.7 L* D Hct 16.6 L* MCV 108.1 H MCH 37.4 H Plt Count 4 L* D Neutrophils # (Manual) 0.80 L Macrocytosis Marked A PT 12.5 H INR 1.2 H APTT 20.1 L D-Dimer 1.04 H Sodium 133 L BUN 21 H Creatinine 0.55 L Glucose 193 H Calcium 8.1 L Total Protein 5.5 L Albumin 2.9 L Crossmatch 12/12/20 15:00 WBC RBC Hgb Hct MCV MCH Plt Count Neutrophils # (Manual) Macrocytosis PT INR APTT D-Dimer Sodium BUN Creatinine Glucose Calcium Total Protein Albumin Crossmatch See Detail - Diagnostic Findings Chest x-ray: image reviewed Assessment and Plan Plan: 1 . Extensive stage primary small cell carcinoma of lung - the patient has extensive stage primary small cell lung cancer with hepatic involvement and possible osseous metastases. The patient is currently receiving systemic chemotherapy through [facility]. Is associated total of 3 sessions of systemic chemotherapy along with immunotherapy. Subsequent follow- up showed disease progression and the patient was unable to complete conv entional chemotherapy and he was given oral topotecan and he received a one round of oral chemotherapy that was given to him in November. Note that during his chemotherapy course was modified as the patient developed neutropenia he was treated with Neulasta. 2 pancytopenia 3 leukopenia with a white second of 2 0. 4 acute blood loss anemia which probably was exacerbated further with a lower GI bleed. Hemoglobin was at 5.7 the time of admission 5 acute thrombocytopenia with a platelet count of 4, likely bone marrow suppression second and systemic chemotherapy 6 shortness of breath secondary to above, the patient shortness of breath is multifactorial. The patient is known to have COPD and ascitic small cell lung cancer in addition to profound anemia currently getting 2 shortness of breath. 7 COPD with some interstitial markings bilaterally, could be potentially metastatic. Plan Fluid resuscitation and the patient is already received a total of 1.5 L of normal saline Continue with transfusion 2 units of packed RBC Platelet transfusion Admit this patient to the intensive care unit for further monitoring. Continue IV fluids with normal saline today to 150 mL an hour May need G-CSF if the patient continues to be leukopenic. No signs of any febrile neutropenia or any infectious complications for now Admitting the patient to the intensive care unit Oncology consultation Prognosis poor baseline above-mentioned comorbidities. May need a GI evaluation if the bleeding continues. Bleeding is most like is secondary to underlying thrombocytopenia, anticoagulation profile is essentially within normal limits.
[2020-12-12 20:22] LABS: Glucose,Whole Blood 135 mg/dL (75-99)
[2020-12-12] MEDS: SODIUM CHLORIDE 0.9% 1,000 ML IV SCH (21:51)
[2020-12-12] MEDS ORDERED: MELATONIN 5 MG TABLET PO SCH (23:30)
[2020-12-12 23:53] LABS: Glucose,Whole Blood 138 mg/dL (75-99)
[2020-12-13 01:00] LABS: Anisocytosis Slight; MCH 33.4 pg (25.0-35.0); MCHC 34.7 g/dL (31.0-37.0); Macrocytosis Slight; Mean Platelet Volume 7.9; RBC 2.04 m/uL (4.30-5.90); RDW 17.9 % (11.5-15.5); WBC 2.6 k/uL (3.8-10.6)
[2020-12-13 01:03] LABS: HCT 19.7 % (39.0-53.0); HGB 6.8 gm/dL (13.0-17.5)
[2020-12-13 01:04] LABS: MCV 96.5 fL (80.0-100.0); Platelet Count 35 k/uL (150-450)
--- NOTE | 2020-12-13 01:50 | P.HPIM ---
History of Present Illness H&P Date: 12/12/20 Patient is a 60-year-old male with a PMH of metastatic small cell lung CA with metastases to liver and bone diagnosed in June 2020, currently undergoing chemotherapy through [facility] who presents to the emergency room with complaints of bloody stools and feeling weak. Patient reports that he has been currently receiving chemotherapy and that he initially noticed a single large bloody stool this past Wednesday. He reports having 2 or 3 daily bowel movements with some amount of blood since then. Also reported feeling more weak than usual along with occasional shortness of breath. Denied fever, chills, cough. Also denied nausea, vomiting, abdominal pain, diarrhea. In the emergency room, the patient's hemoglobin was noted to be 5.7, down from a baseline of 13.6 two weeks ago. Platelets had also decreased to 4 from 136. The patient was admitted to the medical ICU for acute blood loss anemia secondary to GI bleeding with pancytopenia. Review of systems: Pertinent positives and negatives as discussed in HPI, a complete review of systems was performed and all other systems are negative. Physical examination: General: non toxic, no distress, appears at stated age, normal weight Derm: no unusual rashes/lesions no unusual ecchymoses, warm, dry Head: atraumatic, normocephalic, symmetric Eyes: EOMI, no lid lag, anicteric sclera, pupils equal round reactive to light ENT: Nose and ears atraumatic, no thrush, no pharyngeal erythema Neck: No thyromegaly, no cervical lymphadenopathy, trachea midline, supple Mouth: no lip lesion, mucus membranes moist Cardiovascular: S1S2 reg, no murmur, positive posterior tibial pulse bilateral, no edema, capillary refill less than 2 seconds Lungs: CTA bilateral, no rhonchi, no rales , no accessory muscle use Abdominal: soft, nontender to palpation, no guarding, no appreciable organomegaly, normal bowel sounds Ext: no gross muscle atrophy, muscle strength 4 out of 5 in all 4 extremities grossly, no contractures, Neuro: CN II-XI grossly intact, light touch intact all 4 extremities, finger to nose within normal limits, Psych: Alert, oriented, appropriate affect Assessment/plan Acute blood loss anemia secondary to GI bleeding in setting of severe thrombocytopenia -2 units PRBCs ordered -Continue to monitor CBC -Platelet transfusion ordered -Consider GI consult if continues to have bleeding -Monitor CBC -IV fluids -Protonix IV Pancytopenia -Likely due to undergoing chemotherapy with bone marrow suppression Shortness of breath, likely secondary to metastatic small cell lung cancer and underlying COPD -Continue home meds DVT prophylaxis -IPCDs The patient is admitted with an anticipated greater than 2 midnight stay for evaluation of GIB CODE STATUS: Full Code Discussed with: Patient Anticipated discharge date: 3-[address]: Home Past Medical History Past Medical History: Cancer Additional Past Medical History / Comment(s): Lung CA chemo last treatment end of September 2020 History of Any Multi-Drug Resistant Organisms: None Reported Past Surgical History: Joint Replacement Additional Past Surgical History / Comment(s): lt hip replacement Past Anesthesia/Blood Transfusion Reactions: No Reported Reaction Past Psychological History: No Psychological Hx Reported Smoking Status: Former smoker Past Alcohol Use History: None Reported Additional Past Alcohol Use History / Comment(s): smoker for 20 years 1 ppd quit 05/06/20 Past Drug Use History: None Reported - Past Family History Father Family Medical History: Cancer Additional Family Medical History / Comment(s): lung cancer Medications and Allergies Home Medications Medication Instructions Recorded Confirmed Type Gabapentin 300 mg PO BID@0900,1500 11/12/20 12/12/20 History Hydrocodone Bit/Homatrop Me-Br 5 ml PO Q6H PRN 11/12/20 12/12/20 History [Hycodan 5 mg-1.5 mg/5 ml Soln] Pantoprazole Sodium [Protonix] 20 mg PO DAILY 11/12/20 12/12/20 History Polyethylene Glycol 3350 [Miralax] 17 gm PO DAILY 11/12/20 12/12/20 History oxyCODONE HCL [OxyIR] 5 - 10 mg PO Q4H PRN 11/12/20 12/12/20 History Gabapentin [Neurontin] 600 mg PO HS 11/26/20 12/12/20 History Morphine Sulfate [Ms Contin] 60 mg PO Q12H 11/26/20 12/12/20 History Metoprolol Succinate (ER) [Toprol 25 mg PO DAILY #30 tab.er.24h 11/27/20 12/12/20 Rx XL] Hycamtin 0.25mg 0.5 mg PO DIRECTED 12/12/20 12/12/20 History Hycamtin 1mg 3 mg PO DIRECTED 12/12/20 12/12/20 History Loperamide HCl [Imodium] 2 - 4 mg PO TID PRN 12/12/20 12/12/20 History Ondansetron Odt [Zofran Odt] 8 mg PO Q8H PRN 12/12/20 12/12/20 History Pegfilgrastim [Neulasta] 6 mg SQ Q21D 12/12/20 12/12/20 History Phenylephrine HCl [Sudafed PE] 10 mg PO Q4H PRN 12/12/20 12/12/20 History Sennosides [Senna] 17.2 mg PO BID PRN 12/12/20 12/12/20 History Allergies Allergy/AdvReac Type Severity Reaction Status Date / Time No Known Allergies Allergy Verified 12/12/20 18:01 Physical Exam Vitals: Vital Signs Temp Pulse Pulse Pulse Pulse Resp BP 12/12/20 22:00 114 H 22 98/60 12/12/20 21:36 97.9 F 114 H 22 98/60 12/12/20 21:30 110 H 27 H 82/57 12/12/20 21:20 112 H 26 H 12/12/20 21:10 123 H 17 12/12/20 21:00 112 H 10 L 108/62 12/12/20 20:26 98 F 121 H 28 H 108/62 12/12/20 19:47 116 H 20 85/54 12/12/20 19:19 97.8 F 118 H 18 90/55 12/12/20 19:05 97.8 F 118 H 20 90/55 12/12/20 18:00 97.8 F 120 H 20 95/59 12/12/20 17:26 97.8 F 120 H 20 95/59 12/12/20 17:00 117 H 20 12/12/20 16:56 99.1 F 120 H 20 109/61 12/12/20 16:46 97.3 F L 116 H 18 107/58 12/12/20 16:00 97.3 F L 116 H 18 107/58 12/12/20 15:39 98.5 F 124 H 138 H 122 H 12/12/20 15:00 121 H 18 91/60 12/12/20 14:55 123 H 18 92/56 12/12/20 13:49 98.4 F 122 H 16 88/57 BP BP BP Pulse Ox 12/12/20 22:00 96 12/12/20 21:36 96 12/12/20 21:30 98 12/12/20 21:20 95 12/12/20 21:10 95 12/12/20 21:00 96 12/12/20 20:26 92 L 12/12/20 19:47 97 12/12/20 19:19 97 12/12/20 19:05 96 12/12/20 18:00 96 12/12/20 17:26 96 12/12/20 17:00 96 12/12/20 16:56 100 12/12/20 16:46 100 12/12/20 16:00 98 12/12/20 15:39 92/54 75/52 83/52 100 12/12/20 15:00 100 12/12/20 14:55 100 12/12/20 13:49 100 Intake and Output 12/12/20 12/12/20 12/13/20 14:59 22:59 06:59 Intake Total 1095 Output Total 460 Balance 635 Intake: IV 150 Sodium Chloride 0.9% 1, 150 000 ml @ 150 mls/hr IV . Q6H40M [facility] Rx#:[id number] Blood Product 945 Platelet Pheresis Pas 325 Psoralen Unit [id number] Rc As-1 Unit 310 [id number] Rc As-1 Unit 310 [id number] Output: Urine 460 Other: Voiding Method Indwelling Catheter Weight 75.75 kg 75.75 kg Results CBC & Chem 7: 12/12/20 15:00 12/12/20 15:00 Labs: Abnormal Lab Results - Last 24 Hours (Table) 12/12/20 12/12/20 12/12/20 Range/Units 15:00 15:00 15:00 WBC 2.0 L (3.8-10.6) k/uL RBC 1.53 L (4.30-5.90) m/uL Hgb 5.7 L* D (13.0-17.5) gm/dL Hct 16.6 L* (39.0-53.0) % MCV 108.1 H (80.0-100.0) fL MCH 37.4 H (25.0-35.0) pg Plt Count 4 L* D (150-450) k/uL Neutrophils # (Manual) 0.80 L (1.3-7.7) k/uL Macrocytosis Marked A PT 12.5 H (9.0-12.0) sec INR 1.2 H (<1.2) APTT 20.1 L (22.0-30.0) sec D-Dimer 1.04 H (<0.60) mg/L FEU Sodium 133 L (137-145) mmol/L BUN 21 H (9-20) mg/dL Creatinine 0.55 L (0.66-1.25) mg/dL Glucose 193 H (74-99) mg/dL POC Glucose (mg/dL) (75-99) mg/dL Calcium 8.1 L (8.4-10.2) mg/dL Total Protein 5.5 L (6.3-8.2) g/dL Albumin 2.9 L (3.5-5.0) g/dL Crossmatch 12/12/20 12/12/20 Range/Units 15:00 20:21 WBC (3.8-10.6) k/uL RBC (4.30-5.90) m/uL Hgb (13.0-17.5) gm/dL Hct (39.0-53.0) % MCV (80.0-100.0) fL MCH (25.0-35.0) pg Plt Count (150-450) k/uL Neutrophils # (Manual) (1.3-7.7) k/uL Macrocytosis PT (9.0-12.0) sec INR (<1.2) APTT (22.0-30.0) sec D-Dimer (<0.60) mg/L FEU Sodium (137-145) mmol/L BUN (9-20) mg/dL Creatinine (0.66-1.25) mg/dL Glucose (74-99) mg/dL POC Glucose (mg/dL) 135 H (75-99) mg/dL Calcium (8.4-10.2) mg/dL Total Protein (6.3-8.2) g/dL Albumin (3.5-5.0) g/dL Crossmatch See Detail Thrombosis Risk Factor Assmnt - Choose All That Apply Any of the Below Risk Factors Present?: Yes Each Factor Represents 1 point: Medical pt on bed rest Other Risk Factors: Yes Each Risk Factor Represents 2 Points: Age 61-74 years Thrombosis Risk Factor Assessment Total Risk Factor Score: 3 Thrombosis Risk Factor Assessment Level: Moderate Risk
[2020-12-13 02:28] LABS: Band Neutrophils % 3 %; Lymphocytes # (M) 1.79 k/uL (1.0-4.8); Monocytes # (M) 0.05 k/uL (0-1.0); Neutrophils % (M) 26 %; Nucleated Red Blood Cells 0 /100 WBC (0-0); Total Cells Counted 100
[2020-12-13 02:29] LABS: Anisocytosis (M) Present
[2020-12-13 04:13] LABS: Anisocytosis Slight; Basophils % (A) 0 %; Eosinophils % (A) 1 %; Lymphocytes # (A) 1.2 k/uL (1.0-4.8); Lymphocytes % (A) 65 %; MCH 33.3 pg (25.0-35.0); MCHC 34.4 g/dL (31.0-37.0); MCV 96.7 fL (80.0-100.0); Macrocytosis Slight; Mean Platelet Volume 8.7; Monocytes # (A) 0.1 k/uL (0-1.0); Monocytes % (A) 3 %; Neutrophils # (A) 0.5 k/uL (1.3-7.7); Neutrophils % (A) 28 %; Platelet Count 27 k/uL (150-450); RBC 1.91 m/uL (4.30-5.90); RDW 17.7 % (11.5-15.5); WBC 1.9 k/uL (3.8-10.6)
[2020-12-13] MEDS ORDERED: [UNRECOGNIZED DRUG - OTHER] PO PRN (04:18)
[2020-12-13] MEDS ORDERED: PANTOPRAZOLE 40 MG/10 ML VIAL IVP ONE (04:18)
[2020-12-13] MEDS ORDERED: ONDANSETRON ODT 4 MG TAB PO PRN (04:18)
[2020-12-13 04:28] LABS: HCT 18.4 % (39.0-53.0); HGB 6.3 gm/dL (13.0-17.5)
[2020-12-13] MEDS ORDERED: MORPHINE SULFATE ER 60 MG TABLET PO SCH (04:30)
[2020-12-13 04:43] LABS: ALT 29 U/L (4-49); AST 27 U/L (17-59); African American GFR (CKD) >90 (>60 ml/min/1.73 sqM); Albumin 2.2 g/dL (3.5-5.0); Alkaline Phosphatase 76 U/L (38-126); Anion Gap 3 mmol/L; Blood Urea Nitrogen 12 mg/dL (9-20); Calcium 7.7 mg/dL (8.4-10.2); Carbon Dioxide 27 mmol/L (22-30); Chloride 105 mmol/L (98-107); Glucose 125 mg/dL (74-99); Non-African American GFR(CKD) >90 (>60 ml/min/1.73 sqM); Potassium 3.7 mmol/L (3.5-5.1); Sodium 135 mmol/L (137-145); Total Bilirubin 1.3 mg/dL (0.2-1.3); Total Protein 4.4 g/dL (6.3-8.2)
[2020-12-13] MEDS ORDERED: Potassium Replacement Protocol 1 EACH MISC MISCELLANE PRN (04:46)
[2020-12-13] MEDS: SODIUM CHLORIDE 0.9% 1,000 ML IV SCH ×3 (04:54→20:53)
[2020-12-13] MEDS ORDERED: POTASSIUM CHLORIDE ER 20 MEQ TAB.ER PO SCH (05:00)
[2020-12-13] MEDS: GABAPENTIN 300 MG CAP PO SCH ×3 (08:47→20:52)
[2020-12-13] MEDS ORDERED: CEFEPIME 1 GM in SODIUM CHLORIDE 0.9% 50 ML IVPB ONE (09:00)
--- NOTE | 2020-12-13 09:47 | P.PN ---
Subjective Progress Note Date: 12/13/20 Principal diagnosis: Small cell lung cancer with pancytopenia 60-year-old male patient with metastatic small cell lung cancer who is currently undergoing oral chemotherapy with topotecan a total of 3.5 mg 5 days on 21 days off. This was given to him through the [facility]. I diagnosis patient having metastatic small cell lung cancer back in June 2020. At that time, the patient he started having worsening shortness of breath and he was seen by his primary care physician he was diagnosed having a pneumonia of the right lower lobe. Following that he was given antibiotics and steroids without much help. Upon follow-up, he was referred for a CAT scan of the chest and the CAT scan of the chest was completed at [facility] on 06/07/2020. I had the chance in reviewing the CAT scan images and the patient was found to have some mild to moderate emphysematous changes in the upper lobes bilaterally. There was however a right hilar mass/masslike consolidation and mediastinal lymphadenopathy involving the right paratracheal and subcarinal lesion and there was an abnormal right tracheobronchial masslike lymph node measuring 2.7 x 2.1 cm in size. There was also paratracheal lymph nodes and these were extending to the superior mediastinum. There were also smaller hepatic lesions which obviously raises the concern for malignancy. For that reason, the patient was referred to me with a concern of lung cancer. Clinically, the patient had some exertional dyspnea and shortness of breath. He has no hemoptysis. He has no weight loss. He has been sweating at nighttime. No fever. No chills. No change in his appetite. No change in voice. I performed a bronchoscopy on this patient and diagnosis small cell lung cancer was established. I performed a bronchoscopy and the diagnosis was consistent with small cell lung cancer. The patient has had some subsequent MRI of the brain that came back negative for metastases. His PET scan showed advanced stage right lung neoplasm with abnormal thoracic and supraclavicular lymphadenopathy and there was hepatic and osseous involvement. The patient had also suspicious subcentimeter focus in the region of the panc reatic tail and possible involvement of the left pubic bone, subtle sclerosis of the level of the left pubic bone in addition to proximal right femoral lesion at the level of the intertrochanteric area and the patient also had some mild height loss at the level of T12 vertebra with mild hypermetabolic activity. The patient was referred for oncology. He did not have a good encounter with Dr. REID and subsequently ended up going to [facility]. He was hospitalized immediately at [facility] and he was started on systemic chemotherapy and he has been also started on immunotherapy. I'm not sure of the exact regimen however my suspicion is that the patient is receiving a combination of c arboplatinum, CENSUS ENUMERATOR-16 and Tecentric. Follow-up CAT scan of the chest that was done on 11/12/2020 showed a large right hilar and mediastinal mass with encasement of the right main pulmonary artery and the right sided bronchus intermedius/right lower lobe with secondary narrowing.. There was also by peripheral increased lung markings possibly consistent with metastatic disease. Multiple enlarging hypodense lesions in liver lesions were also seen. A follow- up CAT scan of the chest that was also done on 11/26/2020 showed essentially unchanged findings. At that point, the patient was seen again at the [facility] and the patient was given topotecan and the patient has already received one round of oral chemotherapy. He received Neulasta. He is presenting today to the burst department because of worsening shortness of breath over the past 1 week. The patient was having lower GI bleed with bright red blood per rectum. The patient started having lower GI bleed around 2-3 days ago and the patient was having several bouts on a daily basis. He arrived to the hospital and he stated count was 4 and his hemoglobin was at 5.7 with a white cell count of 2. Normal coagulation profile. Normal electrolytes. LFTs were normal.: 19 testing was negative. Chest x-ray showed a right infrahilar soft tissue density in the patient had increased interstitial markings bilaterally seen on a previous chest x-ray also. At this point in time, the patient is on 2 L about 2 by nasal cannula. The patient is sinus tachycardia with a heart rate in the 160-120 range. No hematemesis. No abdominal pain. Altered mental status. He already has received a unit of packed RBC. Platelets have been ordered. Another unit of packed RBC has been ordered. He was given a total of 1.5 L of normal saline in the emergency department. Patient was reevaluated today on 12/13/2020, remains in the ICU, he is on 2 L nasal cannula with O2 saturation 94%. Patient feels a bit short of breath. He received so far 3 units of packed RBCs and 1 unit of platelets. Continues to have pancytopenia with a WBC count of 1.9 hemoglobin of 6.3 and platelets are 27,000. Patient remains on IV fluid at 1 50 mL per hour in the form of 0.9 normal saline. His blood pressure is marginal. Hence I added antibiotics in the form of cefepime and vancomycin on this patient. Ulcers are pending. Patient is yet to be seen by oncology on consultation. Today I have recommended another unit of packed RBCs and another unit of platelets to be given since his hemoglobin remains low and platelets remain low. Chest x-ray showed minimal interstitial changes at the bases. Could be related to some component of inters titial edema or pneumonitis. Patient received significant amount of fluid since admission. But no antibiotics have been given, and I'm recommending cefepime and vancomycin to start empirically today. Electrolytes are normal renal profile is normal. Clinically the patient feels a bit better today compared to how he felt yesterday. Continues to have low back pain. Objective - Vital Signs Vital signs: Vital Signs Temp 98 F 12/13/20 09:15 Pulse 80 12/13/20 09:15 Resp 25 H 12/13/20 09:15 BP 105/62 12/13/20 09:15 Pulse Ox 97 12/13/20 09:15 Intake & Output 12/12/20 12/13/20 12/13/20 18:59 06:59 18:59 Intake Total 0 2145 710 Output Total 1015 215 Balance 0 1130 495 Weight 75.75 kg 80.2 kg Intake: IV 1200 300 Sodium Chloride 0.9% 1, 1200 300 000 ml @ 150 mls/hr IV . Q6H40M [facility] Rx#:[id number] Intake, IV Titration 100 Amount Cefepime 1 gm In Sodium 100 Chloride 0.9% 50 ml @ 100 mls/hr IVPB ONCE@0900 ONE Rx#:[id number] Blood Product 0 945 310 Platelet Pheresis Pas 325 Psoralen Unit [id number] Rc As-1 Unit 310 [id number] Rc As-1 Unit 0 [id number] Rc As-1 Unit 0 310 [id number] Rc As-1 Unit 0 310 [id number] Output: Urine 1015 215 Other: Voiding Method Indwelling Catheter - Exam General: Revealed a 60-year-old white male in no distress. Derm: No rashes, no ecchymosis. Head: Atraumatic, normocephalic. Eyes: PERRLA, EOMI, nonicteric. ENT: Nose and ears atraumatic, no thrush, no pharyngeal erythema Neck: No thyromegaly, no cervical lymphadenopathy, trachea midline, supple Mouth: no lip lesion, mucus membranes moist Cardiovascular: Normal S1 and S2, no S3 gallop. Lungs: Fine crackles at the bases no rhonchi and no wheezes Abdominal: Soft nontender no megaly no rebound no guarding. Ext: No clubbing edema or cyanosis. Neuro: Alert and oriented 3 focal deficits. Psych: Normal mood, affect and normal mental status examination. - Labs CBC & Chem 7: 12/13/20 03:37 12/13/20 03:37 Labs: Abnormal Lab Results - Last 24 Hours (Table) 12/12/20 12/12/20 12/12/20 Range/Units 15:00 15:00 15:00 WBC 2.0 L (3.8-10.6) k/uL RBC 1.53 L (4.30-5.90) m/uL Hgb 5.7 L* D (13.0-17.5) gm/dL Hct 16.6 L* (39.0-53.0) % MCV 108.1 H (80.0-100.0) fL MCH 37.4 H (25.0-35.0) pg RDW (11.5-15.5) % Plt Count 4 L* D (150-450) k/uL Neutrophils # (1.3-7.7) k/uL Neutrophils # (Manual) 0.80 L (1.3-7.7) k/uL Macrocytosis Marked A PT 12.5 H (9.0-12.0) sec INR 1.2 H (<1.2) APTT 20.1 L (22.0-30.0) sec D-Dimer 1.04 H (<0.60) mg/L FEU Sodium 133 L (137-145) mmol/L BUN 21 H (9-20) mg/dL Creatinine 0.55 L (0.66-1.25) mg/dL Glucose 193 H (74-99) mg/dL POC Glucose (mg/dL) (75-99) mg/dL Calcium 8.1 L (8.4-10.2) mg/dL Total Protein 5.5 L (6.3-8.2) g/dL Albumin 2.9 L (3.5-5.0) g/dL Crossmatch 12/12/20 12/12/20 12/12/20 Range/Units 15:00 20:21 23:52 WBC (3.8-10.6) k/uL RBC (4.30-5.90) m/uL Hgb (13.0-17.5) gm/dL Hct (39.0-53.0) % MCV (80.0-100.0) fL MCH (25.0-35.0) pg RDW (11.5-15.5) % Plt Count (150-450) k/uL Neutrophils # (1.3-7.7) k/uL Neutrophils # (Manual) (1.3-7.7) k/uL Macrocytosis PT (9.0-12.0) sec INR (<1.2) APTT (22.0-30.0) sec D-Dimer (<0.60) mg/L FEU Sodium (137-145) mmol/L BUN (9-20) mg/dL Creatinine (0.66-1.25) mg/dL Glucose (74-99) mg/dL POC Glucose (mg/dL) 135 H 138 H (75-99) mg/dL Calcium (8.4-10.2) mg/dL Total Protein (6.3-8.2) g/dL Albumin (3.5-5.0) g/dL Crossmatch See Detail 12/13/20 12/13/20 12/13/20 Range/Units 00:30 03:37 03:37 WBC 2.6 L 1.9 L (3.8-10.6) k/uL RBC 2.04 L 1.91 L (4.30-5.90) m/uL Hgb 6.8 L* 6.3 L* (13.0-17.5) gm/dL Hct 19.7 L* 18.4 L* (39.0-53.0) % MCV (80.0-100.0) fL MCH (25.0-35.0) pg RDW 17.9 H 17.7 H (11.5-15.5) % Plt Count 35 L D 27 L (150-450) k/uL Neutrophils # 0.5 L (1.3-7.7) k/uL Neutrophils # (Manual) 0.70 L (1.3-7.7) k/uL Macrocytosis PT (9.0-12.0) sec INR (<1.2) APTT (22.0-30.0) sec D-Dimer (<0.60) mg/L FEU Sodium 135 L (137-145) mmol/L BUN (9-20) mg/dL Creatinine 0.45 L (0.66-1.25) mg/dL Glucose 125 H (74-99) mg/dL POC Glucose (mg/dL) (75-99) mg/dL Calcium 7.7 L (8.4-10.2) mg/dL Total Protein 4.4 L (6.3-8.2) g/dL Albumin 2.2 L (3.5-5.0) g/dL Crossmatch Assessment and Plan Assessment: Impression: Extensive stage primary small cell lung cancer with diffuse metastasis. Pancytopenia secondary to recent chemotherapy at the [facility]. Possible sepsis hence the patient will be placed empirically on antibiotics in the form of cefepime and vancomycin. Acute blood loss anemia, possible undergoing GI bleeding secondary to thrombocytopenia. Acute thrombocytopenia secondary to bone marrow suppression from systemic chemotherapy. History of underlying COPD and underlying small cell lung cancer, underlying pneumonia is not entirely ruled out but felt to be less likely. Recommendation: Continue present supportive care measures. Transfuse patient with platelets and with packed RBCs, maintain hemoglobin above 7. Oncology to see on consultation. Platelets transfusion to be given again today. May need G-CSF ordered by oncology for his neutropenia. Continue to monitor in the ICU. Prognosis remains relatively guarded. And poor considering his initial presentation. Would hold on GI consultation for now. And in the meantime transfuse patient with platelets and packed RBCs. Time with Patient: Less than 30
[2020-12-13] MEDS: MORPHINE SULFATE ER 60 MG TABLET PO SCH ×2 (10:04→20:52)
[2020-12-13 12:22] LABS: Glucose,Whole Blood 162 mg/dL (75-99)
[2020-12-13] MEDS: METOPROLOL SUCCINATE (ER) 25 MG TAB.ER.24H PO SCH (12:48)
[2020-12-13 13:33] LABS: Appearance,Urine Clear (Clear); Bilirubin,Urine Negative (Negative); Blood,Urine Trace (Negative); Color,Urine Yellow; Glucose,Urine (UA) 2+ (Negative); Ketones,Urine Negative (Negative); Leukocyte Esterase,Urine Trace (Negative); Mucus,Urine Rare /hpf; Nitrite,Urine Negative (Negative); Protein,Urine Negative (Negative); RBC,Urine 15 /hpf (0-5); Specific Gravity,Urine 1.019 (1.001-1.035); WBC,Urine 21 /hpf (0-5)
--- NOTE | 2020-12-13 14:46 | P.PN ---
Subjective Progress Note Date: 12/13/20 Principal diagnosis: Anemia 60-year-old male patient with metastatic small cell lung cancer who is currently undergoing oral chemotherapy with topotecan a total of 3.5 mg 5 days on 21 days off at [facility]. He presented to the emergency department because of worsening shortness of breath over the past 1 week. The patient was having lower GI bleed with bright red blood per rectum. The patient was reporting several bouts of daily hematochezia. He arrived to the hospital with hemoglobin was at 5.7 with a white cell count of 2. Normal coagulation profile. Normal electrolytes. LFTs were normal. Patient was admitted to ICU. 12/13/2020: Patient states that his respiratory function has improved. He does not feel like he is having significant difficulty in breathing. He currently has received 3 units of PRBC and 1 unit of platelets. Patient is currently re maining on broad-spectrum antibiotics per pulmonary critical care team Objective - Vital Signs Vital signs: Vital Signs Temp 98.1 F 12/13/20 14:15 Pulse 92 12/13/20 14:15 Resp 24 12/13/20 14:15 BP 118/69 12/13/20 14:15 Pulse Ox 96 12/13/20 14:15 Intake & Output 12/12/20 12/13/20 12/13/20 18:59 06:59 18:59 Intake Total 0 2145 2287 Output Total 1015 665 Balance 0 1130 1622 Weight 75.75 kg 80.2 kg 80.2 kg Intake: IV 1200 1050 Sodium Chloride 0.9% 1, 1200 1050 000 ml @ 150 mls/hr IV . Q6H40M [facility] Rx#:[id number] Intake, IV Titration 50 Amount Cefepime 1 gm In Sodium 50 Chloride 0.9% 50 ml @ 100 mls/hr IVPB ONCE@0900 ONE Rx#:[id number] Oral 240 Blood Product 0 945 947 Platelet Pheresis Pas 327 Psoralen Unit [id number] Platelet Pheresis Pas 325 Psoralen Unit [id number] Rc As-1 Unit 310 [id number] Rc As-1 Unit 310 [id number] Rc As-1 Unit 0 310 [id number] Rc As-1 Unit 0 310 [id number] Output: Urine 1015 665 Other: Voiding Method Indwelling Catheter Indwelling Catheter # Bowel Movements 1 - Exam Physical examination: General: non toxic, no distress, appears at stated age, normal weight Derm: no unusual rashes/lesions no unusual ecchymoses, warm, dry Head: atraumatic, normocephalic, symmetric Eyes: EOMI, no lid lag, anicteric sclera, pupils equal round reactive to light ENT: Nose and ears atraumatic, no thrush, no pharyngeal erythema Neck: No thyromegaly, no cervical lymphadenopathy, trachea midline, supple Mouth: no lip lesion, mucus membranes moist Cardiovascular: S1S2 reg, no murmur, positive posterior tibial pulse bilateral, no edema, capillary refill less than 2 seconds Lungs: CTA bilateral, no rhonchi, no rales , no accessory muscle use Abdominal: soft, nontender to palpation, no guarding, no appreciable organomegaly, normal bowel sounds Ext: no gross muscle atrophy, muscle strength 4 out of 5 in all 4 extremities grossly, no contractures, Neuro: CN II-XI grossly intact, light touch intact all 4 extremities, finger to nose within normal limits, Psych: Alert, oriented, appropriate affect - Labs CBC & Chem 7: 12/13/20 03:37 12/13/20 03:37 Labs: Abnormal Lab Results - Last 24 Hours (Table) 12/12/20 12/12/20 12/12/20 Range/Units 15:00 15:00 15:00 WBC 2.0 L (3.8-10.6) k/uL RBC 1.53 L (4.30-5.90) m/uL Hgb 5.7 L* D (13.0-17.5) gm/dL Hct 16.6 L* (39.0-53.0) % MCV 108.1 H (80.0-100.0) fL MCH 37.4 H (25.0-35.0) pg RDW (11.5-15.5) % Plt Count 4 L* D (150-450) k/uL Neutrophils # (1.3-7.7) k/uL Neutrophils # (Manual) 0.80 L (1.3-7.7) k/uL Macrocytosis Marked A PT 12.5 H (9.0-12.0) sec INR 1.2 H (<1.2) APTT 20.1 L (22.0-30.0) sec D-Dimer 1.04 H (<0.60) mg/L FEU Sodium 133 L (137-145) mmol/L BUN 21 H (9-20) mg/dL Creatinine 0.55 L (0.66-1.25) mg/dL Glucose 193 H (74-99) mg/dL POC Glucose (mg/dL) (75-99) mg/dL Calcium 8.1 L (8.4-10.2) mg/dL Total Protein 5.5 L (6.3-8.2) g/dL Albumin 2.9 L (3.5-5.0) g/dL Urine Glucose (UA) (Negative) Urine Blood (Negative) Ur Leukocyte Esterase (Negative) Urine RBC (0-5) /hpf Urine WBC (0-5) /hpf Urine Mucus (None) /hpf Crossmatch 12/12/20 12/12/20 12/12/20 Range/Units 15:00 20:21 23:52 WBC (3.8-10.6) k/uL RBC (4.30-5.90) m/uL Hgb (13.0-17.5) gm/dL Hct (39.0-53.0) % MCV (80.0-100.0) fL MCH (25.0-35.0) pg RDW (11.5-15.5) % Plt Count (150-450) k/uL Neutrophils # (1.3-7.7) k/uL Neutrophils # (Manual) (1.3-7.7) k/uL Macrocytosis PT (9.0-12.0) sec INR (<1.2) APTT (22.0-30.0) sec D-Dimer (<0.60) mg/L FEU Sodium (137-145) mmol/L BUN (9-20) mg/dL Creatinine (0.66-1.25) mg/dL Glucose (74-99) mg/dL POC Glucose (mg/dL) 135 H 138 H (75-99) mg/dL Calcium (8.4-10.2) mg/dL Total Protein (6.3-8.2) g/dL Albumin (3.5-5.0) g/dL Urine Glucose (UA) (Negative) Urine Blood (Negative) Ur Leukocyte Esterase (Negative) Urine RBC (0-5) /hpf Urine WBC (0-5) /hpf Urine Mucus (None) /hpf Crossmatch See Detail 12/13/20 12/13/20 12/13/20 Range/Units 00:30 03:37 03:37 WBC 2.6 L 1.9 L (3.8-10.6) k/uL RBC 2.04 L 1.91 L (4.30-5.90) m/uL Hgb 6.8 L* 6.3 L* (13.0-17.5) gm/dL Hct 19.7 L* 18.4 L* (39.0-53.0) % MCV (80.0-100.0) fL MCH (25.0-35.0) pg RDW 17.9 H 17.7 H (11.5-15.5) % Plt Count 35 L D 27 L (150-450) k/uL Neutrophils # 0.5 L (1.3-7.7) k/uL Neutrophils # (Manual) 0.70 L (1.3-7.7) k/uL Macrocytosis PT (9.0-12.0) sec INR (<1.2) APTT (22.0-30.0) sec D-Dimer (<0.60) mg/L FEU Sodium 135 L (137-145) mmol/L BUN (9-20) mg/dL Creatinine 0.45 L (0.66-1.25) mg/dL Glucose 125 H (74-99) mg/dL POC Glucose (mg/dL) (75-99) mg/dL Calcium 7.7 L (8.4-10.2) mg/dL Total Protein 4.4 L (6.3-8.2) g/dL Albumin 2.2 L (3.5-5.0) g/dL Urine Glucose (UA) (Negative) Urine Blood (Negative) Ur Leukocyte Esterase (Negative) Urine RBC (0-5) /hpf Urine WBC (0-5) /hpf Urine Mucus (None) /hpf Crossmatch 12/13/20 12/13/20 Range/Units 12:00 12:21 WBC (3.8-10.6) k/uL RBC (4.30-5.90) m/uL Hgb (13.0-17.5) gm/dL Hct (39.0-53.0) % MCV (80.0-100.0) fL MCH (25.0-35.0) pg RDW (11.5-15.5) % Plt Count (150-450) k/uL Neutrophils # (1.3-7.7) k/uL Neutrophils # (Manual) (1.3-7.7) k/uL Macrocytosis PT (9.0-12.0) sec INR (<1.2) APTT (22.0-30.0) sec D-Dimer (<0.60) mg/L FEU Sodium (137-145) mmol/L BUN (9-20) mg/dL Creatinine (0.66-1.25) mg/dL Glucose (74-99) mg/dL POC Glucose (mg/dL) 162 H (75-99) mg/dL Calcium (8.4-10.2) mg/dL Total Protein (6.3-8.2) g/dL Albumin (3.5-5.0) g/dL Urine Glucose (UA) 2+ H (Negative) Urine Blood Trace H (Negative) Ur Leukocyte Esterase Trace H (Negative) Urine RBC 15 H (0-5) /hpf Urine WBC 21 H (0-5) /hpf Urine Mucus Rare H (None) /hpf Crossmatch Assessment and Plan (1) Anemia Current Visit: Yes Status: Acute Code(s): D64.9 - ANEMIA, UNSPECIFIED SNOMED Code(s): 128123856 (2) GI bleed Current Visit: Yes Status: Acute Code(s): K92.2 - GASTROINTESTINAL HEMORRHAGE, UNSPECIFIED SNOMED Code(s): 78935617 (3) History of lung cancer Current Visit: Yes Status: Acute Code(s): Z85.118 - PERSONAL HISTORY OF MALIGNANT NEOPLASM OF BRONCHUS AND LUNG SNOMED Code(s): 458494093 (4) Thrombocytopenia Current Visit: Yes Status: Acute Code(s): D69.6 - THROMBOCYTOPENIA, UNSPECIFIED SNOMED Code(s): 001416388 Plan: Acute blood loss anemia secondary to GI bleeding in setting of severe throm bocytopenia - patient is currently status post 3 units PRBC and 1 unit of platelets. Concern for possible acute GI bleed. Patient has been admitted to the intensive care unit and pulmonary critical care team following -She remains on IV Protonix, trending H&H and maintaining hemoglobin greater sue n 7. 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 Shortness of breath, likely secondary to metastatic small cell lung cancer and underlying COPD -Currently on 2 L nasal cannula. Patient's chest x-ray was reviewed and shows extensive interstitial opacities which has not significantly changed from previous imaging study. Pulmonary critical care team following. Patient is currently on broad-spectrum antibiotics. Which will be attempted to be de-e scalated as able Overall prognosis guarded and poor. CODE STATUS: Full Code Discussed with: Patient Anticipated discharge date: 3-[address]: Home
[2020-12-13 17:14] LABS: Anisocytosis Slight; Basophils % (A) 0 %; Eosinophils % (A) 1 %; Lymphocytes # (A) 1.7 k/uL (1.0-4.8); Lymphocytes % (A) 71 %; MCH 33.4 pg (25.0-35.0); MCV 95.4 fL (80.0-100.0); Macrocytosis Slight; Mean Platelet Volume 8.2; Monocytes % (A) 2 %; Neutrophils # (A) 0.6 k/uL (1.3-7.7); Neutrophils % (A) 24 %; RBC 3.04 m/uL (4.30-5.90); RDW 16.8 % (11.5-15.5); WBC 2.4 k/uL (3.8-10.6)
[2020-12-13 17:26] LABS: HGB 10.2 gm/dL (13.0-17.5)
[2020-12-13 17:27] LABS: Platelet Count 45 k/uL (150-450)
--- NOTE | 2020-12-13 17:58 | P.CONS ---
History of Present Illness - Reason for Consult Consult date: 12/13/20 Pancytopenia, small cell lung cancer on chemo - History of Present Illness The pt is a 60 yr old, with oncologic history as follows: He presented to his PCP in late 05/26 with complains of prolonged episodes of coughing, associated with expectoration of small amounts of white sputum. Onset of this was fairly acute, happening over 1-2 days. He was initially treated for pneumonia with steroid and antibiotic, with only partial response. He was therefore seen back in the office, and had a CT angiogram of the chest scheduled, performed on 06/07/20. This was negative for any obvious PE. It did however show right hilar mass with mediastinal invasion, with exact size difficult to establish due to surrounding consolidation. He was right tracheobronchial 2.7 x 2.1 cm lymph node. Additional enlarged right peritra cheal nodes were seen extending into the anterior superior mediastinum. Multiple heterogenous hypodense masses highly suspicious for metastasis were also seen in the liver. The patient was referred here, as well as to pulmonary medicine. He underwent bronchoscopy on 06/14/20. His case was discussed with pathology, who confirmed a preliminary diagnosis of small cell lung cancer. formal pathology report was subsequently obtained and reviewed, confirming the same The patient states that his symptoms had improved after a second course of antibiotic. Chest x-ray on 06/14/20 post procedure showed evidence of some COPD and right hilar mass as well as some patchy opacity in the right mid to lower lung. There is no prior history of malignancy. Patient has a history of smoking about a pack a day since his early 20s. He quit in 05/26. He denied any other major medical issues. the patient then underwent a PET scan, confirming stage IV disease with involvement of mediastinal and right supraclavicular nodes, liver, as well as osseous structures especially the right femur and left pelvis. MRI of the brain was negative. he was seen in consult in the office in 06/23, and recommended treatment with palliative intent, with GLUCOSE AND SYRUP WEIGHER-16, carboplatin, and Tecentriq. The patient however went to the [facility] for a second opinion and decided to have treatment there. The patient was treated with IV chemotherapy, most likely GLUCOSE AND SYRUP WEIGHER-16 and carboplatin based according to the available history. He states that he had 3 cycles but then was switched to a different regimen as follow-up scans showed that the treatment was "not working as well as they liked" ( poss progression). He was then switched to oral irinotecan. He has had 1 cycle of the same, completing that somewhat more than a week ago. He states that he did receive a white cell booster shot. After receiving chemotherapy, the patient has generally been doing poorly with persistent weakness and diminished appetite. Over the last few days he had been having diarrhea, and noted blood in the stool. He noted increased shortness of breath with exertion, as well as lightheadedness. He therefore came into the emergency room, where he was found to have hemoglobin of 6.8, WBC 2.6 with ANC 700, and platelets of 35. He received 2 units of PRBC but hemoglobin came back at 6.3. He therefore received an additional 2 units of PRBC as well as 2 units of single donor platelets ordered by our group physician tanning salon attendant The patient is currently in the ICU. He did have a large bowel movement which was black. He states that he was admitted to the hospital on 11/26/20 with new onset A. fib flutter. He has been on aspirin since. He stopped the aspirin at the time of admission. He denied any abdominal pain. CTA during his admission on 11/26/20 had shown no PE. Interstitial changes in the lung, mediastinal adenopathy, and right infrahilar mass appeared to be unchanged. Chest x-ray this admission showed similar findings. EKG was read as sinus tachycardia, but on cardiology evaluation appeared to show a flutter with 2 :1 conduction Review of Systems Constitutional: Reports fatigue, Reports poor appetite, Reports weight loss Eyes: denies blurred vision, denies pain Ears: deny: decreased hearing, ear discharge, earache, tinnitus Ears, nose, mouth and throat: Denies headache, Denies sore throat Cardiovascular: Reports dyspnea on exertion, Reports palpitations Respiratory: Reports as per HPI, Reports cough with sputum, Reports dyspnea Gastrointestinal: Reports diarrhea, Reports hematochezia, Reports melena Genitourinary: Reports as per HPI Musculoskeletal: Reports muscle weakness Integumentary: Denies pruritus, Denies rash Neurological: Reports weakness Psychiatric: Denies anxiety, Denies depression Endocrine: Reports fatigue, Reports palpitations, Reports weight change Hematologic/Lymphatic: Reports as per HPI Past Medical History Past Medical History: Cancer Additional Past Medical History / Comment(s): Lung CA chemo last treatment end of September 2020 History of Any Multi-Drug Resistant Organisms: None Reported Past Surgical History: Joint Replacement Additional Past Surgical History / Comment(s): lt hip replacement Past Anesthesia/Blood Transfusion Reactions: No Reported Reaction Past Psychological History: No Psychological Hx Reported Smoking Status: Former smoker Past Alcohol Use History: None Reported Additional Past Alcohol Use History / Comment(s): smoker for 20 years 1 ppd quit 05/06/20 Past Drug Use History: None Reported - Past Family History Father Family Medical History: Cancer Additional Family Medical History / Comment(s): lung cancer Medications and Allergies Home Medications Medication Instructions Recorded Confirmed Type Gabapentin 300 mg PO BID@0900,1500 11/12/20 12/12/20 History Hydrocodone Bit/Homatrop Me-Br 5 ml PO Q6H PRN 11/12/20 12/12/20 History [Hycodan 5 mg-1.5 mg/5 ml Soln] Pantoprazole Sodium [Protonix] 20 mg PO DAILY 11/12/20 12/12/20 History Polyethylene Glycol 3350 [Miralax] 17 gm PO DAILY 11/12/20 12/12/20 History oxyCODONE HCL [OxyIR] 5 - 10 mg PO Q4H PRN 11/12/20 12/12/20 History Gabapentin [Neurontin] 600 mg PO HS 11/26/20 12/12/20 History Morphine Sulfate [Ms Contin] 60 mg PO Q12H 11/26/20 12/12/20 History Metoprolol Succinate (ER) [Toprol 25 mg PO DAILY #30 tab.er.24h 11/27/20 12/12/20 Rx XL] Hycamtin 0.25mg 0.5 mg PO DIRECTED 12/12/20 12/12/20 History Hycamtin 1mg 3 mg PO DIRECTED 12/12/20 12/12/20 History Loperamide HCl [Imodium] 2 - 4 mg PO TID PRN 12/12/20 12/12/20 History Ondansetron Odt [Zofran Odt] 8 mg PO Q8H PRN 12/12/20 12/12/20 History Pegfilgrastim [Neulasta] 6 mg SQ Q21D 12/12/20 12/12/20 History Phenylephrine HCl [Sudafed PE] 10 mg PO Q4H PRN 12/12/20 12/12/20 History Sennosides [Senna] 17.2 mg PO BID PRN 12/12/20 12/12/20 History Allergies Allergy/AdvReac Type Severity Reaction Status Date / Time No Known Allergies Allergy Verified 12/12/20 18:01 Physical Exam Vitals: Vital Signs Temp Pulse Pulse Pulse Pulse Resp BP 12/13/20 14:00 80 28 H 118/69 12/13/20 13:45 82 29 H 115/69 12/13/20 13:30 81 24 106/69 12/13/20 13:15 97.9 F 85 23 107/60 12/13/20 13:00 74 26 H 103/65 12/13/20 12:45 80 26 H 103/61 12/13/20 12:30 84 26 H 113/66 12/13/20 12:15 97.9 F 89 22 124/67 12/13/20 12:00 96 26 H 104/61 12/13/20 11:45 78 27 H 101/67 12/13/20 11:30 81 28 H 103/63 12/13/20 11:15 85 23 110/62 12/13/20 11:00 87 142 H 108/67 12/13/20 10:45 90 32 H 106/62 12/13/20 10:30 96 26 H 115/66 12/13/20 10:15 100 26 H 107/64 12/13/20 10:00 85 25 H 101/55 12/13/20 09:45 77 28 H 97/54 12/13/20 09:30 76 23 100/66 12/13/20 09:15 98 F 80 25 H 105/62 12/13/20 09:00 87 22 100/62 12/13/20 08:45 98.2 F 90 22 106/59 12/13/20 08:30 98.4 F 89 26 H 100/62 12/13/20 08:15 86 28 H 99/62 12/13/20 08:00 98.2 F 84 124 H 24 90/58 12/13/20 07:00 75 26 H 94/52 12/13/20 06:00 112 H 31 H 93/59 12/13/20 05:53 98.3 F 107 H 27 H 96/59 12/13/20 05:23 98 F 110 H 25 H 96/59 12/13/20 05:13 98.1 F 118 H 28 H 91/64 12/13/20 05:10 98.1 F 109 H 28 H 91/64 12/13/20 05:00 114 H 25 H 12/13/20 04:50 107 H 28 H 12/13/20 04:40 110 H 27 H 12/13/20 04:30 115 H 29 H 100/60 12/13/20 04:20 118 H 26 H 12/13/20 04:10 116 H 16 12/13/20 04:02 98 F 104 H 19 102/62 12/13/20 04:00 98.2 F 115 H 23 95/58 12/13/20 03:00 110 H 29 H 100/61 12/13/20 02:00 109 H 29 H 96/59 12/13/20 01:00 109 H 25 H 98/58 12/13/20 00:00 97.7 F 111 H 22 97/57 12/12/20 23:27 111 H 27 H 93/59 12/12/20 23:00 128 H 23 94/59 12/12/20 22:00 114 H 22 98/60 12/12/20 21:36 97.9 F 114 H 22 98/60 12/12/20 21:30 110 H 27 H 82/57 12/12/20 21:20 112 H 26 H 12/12/20 21:10 123 H 17 12/12/20 21:00 112 H 10 L 108/62 12/12/20 20:26 98 F 121 H 28 H 108/62 12/12/20 19:47 116 H 20 85/54 12/12/20 19:19 97.8 F 118 H 18 90/55 12/12/20 19:05 97.8 F 118 H 20 90/55 12/12/20 18:00 97.8 F 120 H 20 95/59 12/12/20 17:26 97.8 F 120 H 20 95/59 12/12/20 17:00 117 H 20 12/12/20 16:56 99.1 F 120 H 20 109/61 12/12/20 16:46 97.3 F L 116 H 18 107/58 12/12/20 16:00 97.3 F L 116 H 18 107/58 12/12/20 15:39 98.5 F 124 H 138 H 122 H 12/12/20 15:00 121 H 18 91/60 12/12/20 14:55 123 H 18 92/56 BP BP BP Pulse Ox 12/13/20 14:00 95 12/13/20 13:45 96 12/13/20 13:30 96 12/13/20 13:15 95 12/13/20 13:00 97 12/13/20 12:45 97 12/13/20 12:30 95 12/13/20 12:15 95 12/13/20 12:00 94 L 12/13/20 11:45 98 12/13/20 11:30 98 12/13/20 11:15 97 12/13/20 11:00 95 12/13/20 10:45 94 L 12/13/20 10:30 93 L 12/13/20 10:15 93 L 12/13/20 10:00 96 12/13/20 09:45 97 12/13/20 09:30 96 12/13/20 09:15 97 12/13/20 09:00 96 12/13/20 08:45 97 12/13/20 08:30 97 12/13/20 08:15 96 12/13/20 08:00 97 12/13/20 07:00 97 12/13/20 06:00 96 12/13/20 05:53 95 12/13/20 05:23 96 12/13/20 05:13 93 L 12/13/20 05:10 94 L 12/13/20 05:00 94 L 12/13/20 04:50 96 12/13/20 04:40 94 L 12/13/20 04:30 93 L 12/13/20 04:20 93 L 12/13/20 04:10 92 L 12/13/20 04:02 95 12/13/20 04:00 95 12/13/20 03:00 95 12/13/20 02:00 97 12/13/20 01:00 96 12/13/20 00:00 96 12/12/20 23:27 94 L 12/12/20 23:00 94 L 12/12/20 22:00 96 12/12/20 21:36 96 12/12/20 21:30 98 12/12/20 21:20 95 12/12/20 21:10 95 12/12/20 21:00 96 12/12/20 20:26 92 L 12/12/20 19:47 97 12/12/20 19:19 97 12/12/20 19:05 96 12/12/20 18:00 96 12/12/20 17:26 96 12/12/20 17:00 96 12/12/20 16:56 100 12/12/20 16:46 100 12/12/20 16:00 98 12/12/20 15:39 92/54 75/52 83/52 100 12/12/20 15:00 100 12/12/20 14:55 100 Intake and Output 12/12/20 12/13/20 12/13/20 22:59 06:59 14:59 Intake Total 1095 1050 1960 Output Total 460 555 665 Balance 845 082 9847 Intake: IV 150 1050 1050 Sodium Chloride 0.9% 1, 150 1050 1050 000 ml @ 150 mls/hr IV . Q6H40M [facility] Rx#:[id number] Intake, IV Titration 50 Amount Cefepime 1 gm In Sodium 50 Chloride 0.9% 50 ml @ 100 mls/hr IVPB ONCE@0900 ONE Rx#:[id number] Oral 240 Blood Product 945 0 620 Platelet Pheresis Pas 0 Psoralen Unit [id number] Platelet Pheresis Pas 325 Psoralen Unit [id number] Rc As-1 Unit 310 [id number] Rc As-1 Unit 310 [id number] Rc As-1 Unit 310 [id number] Rc As-1 Unit 0 310 [id number] Output: Urine 460 555 665 Other: Voiding Method Indwelling Catheter Indwelling Catheter Indwelling Catheter # Bowel Movements 1 Weight 75.75 kg 80.2 kg 80.2 kg - Constitutional General appearance: mild distress - EENT Eyes: EOMI, PERRLA ENT: hearing grossly normal, normal oropharynx - Neck Neck: no lymphadenopathy Thyroid: bilateral: normal size - Respiratory Respiratory: bilateral: wheezing - Cardiovascular Rhythm: regular Heart sounds: normal: S1, S2 - Gastrointestinal General gastrointestinal: normal bowel sounds, soft - Integumentary Integumentary: normal - Neurologic Neurologic: CNII-XII intact - Musculoskeletal Musculoskeletal: generalized weakness, strength equal bilaterally - Psychiatric Psychiatric: A&O x's 3, appropriate affect Results CBC & Chem 7: 12/13/20 16:59 12/13/20 03:37 Labs: Abnormal Lab Results - Last 24 Hours (Table) 12/12/20 12/12/20 12/12/20 Range/Units 15:00 15:00 15:00 WBC 2.0 L (3.8-10.6) k/uL RBC 1.53 L (4.30-5.90) m/uL Hgb 5.7 L* D (13.0-17.5) gm/dL Hct 16.6 L* (39.0-53.0) % MCV 108.1 H (80.0-100.0) fL MCH 37.4 H (25.0-35.0) pg RDW (11.5-15.5) % Plt Count 4 L* D (150-450) k/uL Neutrophils # (1.3-7.7) k/uL Neutrophils # (Manual) 0.80 L (1.3-7.7) k/uL Macrocytosis Marked A PT 12.5 H (9.0-12.0) sec INR 1.2 H (<1.2) APTT 20.1 L (22.0-30.0) sec D-Dimer 1.04 H (<0.60) mg/L FEU Sodium 133 L (137-145) mmol/L BUN 21 H (9-20) mg/dL Creatinine 0.55 L (0.66-1.25) mg/dL Glucose 193 H (74-99) mg/dL POC Glucose (mg/dL) (75-99) mg/dL Calcium 8.1 L (8.4-10.2) mg/dL Total Protein 5.5 L (6.3-8.2) g/dL Albumin 2.9 L (3.5-5.0) g/dL Urine Glucose (UA) (Negative) Urine Blood (Negative) Ur Leukocyte Esterase (Negative) Urine RBC (0-5) /hpf Urine WBC (0-5) /hpf Urine Mucus (None) /hpf Crossmatch 09/09/21 09/09/21 09/09/21 Range/Units 15:00 20:21 23:52 WBC (3.8-10.6) k/uL RBC (4.30-5.90) m/uL Hgb (13.0-17.5) gm/dL Hct (39.0-53.0) % MCV (80.0-100.0) fL MCH (25.0-35.0) pg RDW (11.5-15.5) % Plt Count (150-450) k/uL Neutrophils # (1.3-7.7) k/uL Neutrophils # (Manual) (1.3-7.7) k/uL Macrocytosis PT (9.0-12.0) sec INR (<1.2) APTT (22.0-30.0) sec D-Dimer (<0.60) mg/L FEU Sodium (137-145) mmol/L BUN (9-20) mg/dL Creatinine (0.66-1.25) mg/dL Glucose (74-99) mg/dL POC Glucose (mg/dL) 135 H 138 H (75-99) mg/dL Calcium (8.4-10.2) mg/dL Total Protein (6.3-8.2) g/dL Albumin (3.5-5.0) g/dL Urine Glucose (UA) (Negative) Urine Blood (Negative) Ur Leukocyte Esterase (Negative) Urine RBC (0-5) /hpf Urine WBC (0-5) /hpf Urine Mucus (None) /hpf Crossmatch See Detail 12/13/20 12/13/20 12/13/20 Range/Units 00:30 03:37 03:37 WBC 2.6 L 1.9 L (3.8-10.6) k/uL RBC 2.04 L 1.91 L (4.30-5.90) m/uL Hgb 6.8 L* 6.3 L* (13.0-17.5) gm/dL Hct 19.7 L* 18.4 L* (39.0-53.0) % MCV (80.0-100.0) fL MCH (25.0-35.0) pg RDW 17.9 H 17.7 H (11.5-15.5) % Plt Count 35 L D 27 L (150-450) k/uL Neutrophils # 0.5 L (1.3-7.7) k/uL Neutrophils # (Manual) 0.70 L (1.3-7.7) k/uL Macrocytosis PT (9.0-12.0) sec INR (<1.2) APTT (22.0-30.0) sec D-Dimer (<0.60) mg/L FEU Sodium 135 L (137-145) mmol/L BUN (9-20) mg/dL Creatinine 0.45 L (0.66-1.25) mg/dL Glucose 125 H (74-99) mg/dL POC Glucose (mg/dL) (75-99) mg/dL Calcium 7.7 L (8.4-10.2) mg/dL Total Protein 4.4 L (6.3-8.2) g/dL Albumin 2.2 L (3.5-5.0) g/dL Urine Glucose (UA) (Negative) Urine Blood (Negative) Ur Leukocyte Esterase (Negative) Urine RBC (0-5) /hpf Urine WBC (0-5) /hpf Urine Mucus (None) /hpf Crossmatch 12/13/20 12/13/20 Range/Units 12:00 12:21 WBC (3.8-10.6) k/uL RBC (4.30-5.90) m/uL Hgb (13.0-17.5) gm/dL Hct (39.0-53.0) % MCV (80.0-100.0) fL MCH (25.0-35.0) pg RDW (11.5-15.5) % Plt Count (150-450) k/uL Neutrophils # (1.3-7.7) k/uL Neutrophils # (Manual) (1.3-7.7) k/uL Macrocytosis PT (9.0-12.0) sec INR (<1.2) APTT (22.0-30.0) sec D-Dimer (<0.60) mg/L FEU Sodium (137-145) mmol/L BUN (9-20) mg/dL Creatinine (0.66-1.25) mg/dL Glucose (74-99) mg/dL POC Glucose (mg/dL) 162 H (75-99) mg/dL Calcium (8.4-10.2) mg/dL Total Protein (6.3-8.2) g/dL Albumin (3.5-5.0) g/dL Urine Glucose (UA) 2+ H (Negative) Urine Blood Trace H (Negative) Ur Leukocyte Esterase Trace H (Negative) Urine RBC 15 H (0-5) /hpf Urine WBC 21 H (0-5) /hpf Urine Mucus Rare H (None) /hpf Crossmatch Comments: Echocardiogram report reviewed . EKG report and images revealed Chest x-ray: report reviewed CT scan - chest: report reviewed Assessment and Plan (1) Pancytopenia due to antineoplastic chemotherapy Narrative/Plan: The patient has pancytopenia due to recent chemotherapy for small cell lung cancer. Based on his history it appears that he may have received a white cell growth factor injection. He is currently receiving blood transfusions and platelet transfusions for his low hemoglobin and platelets - Continue to monitor and transfuse to keep hemoglobin greater than 7 - Typically platelet counts of greater than 10 are considered satisfactory. The patient is not having any active bleeding. However in this patient with suspicion of bleeding, as well as recent use of aspirin, platelet transfusion was given when his hemoglobin did not respond to PRBC transfusion. Continue to monitor, and transfuse to keep platelets greater than 10, or greater than 40 if there is any evidence of active bleeding. - As the ANC is greater than 500, and the patient is afebrile, at this time hold off on adding any white cell growth factors, especially as the patient may already have received the same Current Visit: Yes Status: Acute Code(s): D61.810 - ANTINEOPLASTIC CHEMOTHERAPY INDUCED PANCYTOPENIA; T45.1X5A - ADVERSE EFFECT OF ANTINEOPLASTIC AND IMMUNOSUP DRUGS, INIT SNOMED Code(s): 365736088881202 (2) GI bleed Narrative/Plan: The patient's history of blood in the stool, large melenic stool, recent use of aspirin in the setting of significant cytopenia, is highly suggestive of GI bleed. This is supported by lack of response to the initial PRBC transfusion. The patient therefore received additional platelets and PRBC. Await repeat CBC. If this does not show satisfactory PRBC response, then plan on transfusing more platelets if platelet count is less than 40. In that situation will also consider giving the patient DDAVP, as well as requesting a GI or surgical consult for endoscopic evaluation. - Hold aspirin, NSAIDs, or any anticoagulate Current Visit: Yes Status: Acute Code(s): K92.2 - GASTROINTESTINAL HEMORRHAGE, UNSPECIFIED SNOMED Code(s): 79178657 (3) Small cell lung cancer, right lower lobe Narrative/Plan: The patient had metastatic disease at presentation. Diagnostic and therapeutic circumstances as described. The patient will resume evaluation for continuation of treatment after recovery from his acute situation. He is considering switc polo his care back to this area. - He stated that he was agreeable to being followed by myself while inpatient. However if he does decide to switch care locally, he would like to see another oncologist as an outpatient. In that situation will be set up with Dr Curiel or Kelin Current Visit: Yes Status: Acute Code(s): C34.31 - MALIGNANT NEOPLASM OF LOWER LOBE, RIGHT BRONCHUS OR LUNG SNOMED Code(s): 149570141 Plan: Defer to the admitting service and other consultants for management of his other medical problems
[2020-12-13 18:12] LABS: Glucose,Whole Blood 191 mg/dL (75-99)
[2020-12-13 20:57] LABS: Glucose,Whole Blood 136 mg/dL (75-99)
[2020-12-13] MEDS ORDERED: CEFEPIME 1 GM in SODIUM CHLORIDE 0.9% 50 ML IVPB SCH (21:00)
[2020-12-13] MEDS: traZODone HCL 50 MG TAB PO SCH (23:43)
[2020-12-14 04:54] LABS: ALT 27 U/L (4-49); AST 27 U/L (17-59); African American GFR (CKD) >90 (>60 ml/min/1.73 sqM); Albumin 2.2 g/dL (3.5-5.0); Alkaline Phosphatase 79 U/L (38-126); Anion Gap 4 mmol/L; Blood Urea Nitrogen 7 mg/dL (9-20); Calcium 7.9 mg/dL (8.4-10.2); Carbon Dioxide 25 mmol/L (22-30); Chloride 105 mmol/L (98-107); Glucose 100 mg/dL (74-99); Non-African American GFR(CKD) >90 (>60 ml/min/1.73 sqM); Potassium 3.5 mmol/L (3.5-5.1); Sodium 134 mmol/L (137-145); Total Bilirubin 1.2 mg/dL (0.2-1.3); Total Protein 4.6 g/dL (6.3-8.2)
[2020-12-14 05:01] LABS: INR 1.1 (<1.2); Partial Thromboplastin Time 24.5 sec (22.0-30.0); Prothrombin Time 11.9 sec (9.0-12.0)
[2020-12-14] MEDS: POTASSIUM CHLORIDE ER 20 MEQ TAB.ER PO SCH ×2 (05:15→06:54)
[2020-12-14 05:35] LABS: Anisocytosis Slight; Basophils % (A) 0 %; Eosinophils % (A) 1 %; HCT 25.2 % (39.0-53.0); Lymphocytes # (A) 1.7 k/uL (1.0-4.8); Lymphocytes % (A) 72 %; MCHC 34.6 g/dL (31.0-37.0); MCV 95.6 fL (80.0-100.0); Macrocytosis Slight; Mean Platelet Volume 8.3; Monocytes # (A) 0.1 k/uL (0-1.0); Monocytes % (A) 2 %; Neutrophils # (A) 0.5 k/uL (1.3-7.7); Neutrophils % (A) 20 %; Platelet Count 38 k/uL (150-450); RBC 2.64 m/uL (4.30-5.90); RDW 17.7 % (11.5-15.5); WBC 2.3 k/uL (3.8-10.6)
[2020-12-14 05:36] LABS: HGB 8.7 gm/dL (13.0-17.5)
--- NOTE | 2020-12-14 06:25 | XR ---
EXAMINATION TYPE: XR chest 1V portable DATE OF EXAM: 12/14/2020 CLINICAL HISTORY: Difficulty breathing progress study. TECHNIQUE: Single AP portable upright view of the chest is obtained. COMPARISON: Chest x-ray from 2 days earlier and older studies. CTA chest November 26, 2020 FINDINGS: Background chronic emphysematous change with increased opacities in the mid to lower lungs bilaterally greater in the periphery redemonstrated. Cardiac silhouette size stable and upper limits of normal. Osseous structures remain intact. IMPRESSION: Persistent bilateral multifocal acute opacities greatest in the lower lungs and periphery consistent with covid-19 infection, no significant interval change from most recent study.
[2020-12-14] MEDS ORDERED: FUROSEMIDE 10 MG/ML 4 ML VIAL IV STA (08:43)
[2020-12-14] MEDS: SODIUM CHLORIDE 0.9% 1,000 ML IV SCH ×3 (09:20→16:35)
[2020-12-14] MEDS: PANTOPRAZOLE 40 MG/10 ML VIAL IVP SCH (09:20)
[2020-12-14] MEDS: CEFEPIME 2 GM in SODIUM CHLORIDE 0.9% 100 ML IVPB SCH ×2 (09:20→16:33)
[2020-12-14] MEDS: GABAPENTIN 300 MG CAP PO SCH ×3 (09:21→21:20)
[2020-12-14] MEDS: METOPROLOL SUCCINATE (ER) 25 MG TAB.ER.24H PO SCH (09:21)
[2020-12-14] MEDS: MORPHINE SULFATE ER 60 MG TABLET PO SCH ×2 (09:23→21:17)
--- NOTE | 2020-12-14 12:29 | P.PN ---
Subjective Progress Note Date: 12/14/20 Principal diagnosis: Small cell lung cancer with pancytopenia 60-year-old male patient with metastatic small cell lung cancer who is currently undergoing oral chemotherapy with topotecan a total of 3.5 mg 5 days on 21 days off. This was given to him through the [facility]. I diagnosis patient having metastatic small cell lung cancer back in June 2020. At that time, the patient he started having worsening shortness of breath and he was seen by his primary care physician he was diagnosed having a pneumonia of the right lower lobe. Following that he was given antibiotics and steroids without much help. Upon follow-up, he was referred for a CAT scan of the chest and the CAT scan of the chest was completed at [facility] on 06/07/2020. I had the chance in reviewing the CAT scan images and the patient was found to have some mild to moderate emphysematous changes in the upper lobes bilaterally. There was however a right hilar mass/masslike consolidation and mediastinal lymphadenopathy involving the right paratracheal and subcarinal lesion and there was an abnormal right tracheobronchial masslike lymph node measuring 2.7 x 2.1 cm in size. There was also paratracheal lymph nodes and these were extending to the superior mediastinum. There were also smaller hepatic lesions which obviously raises the concern for malignancy. For that reason, the patient was referred to me with a concern of lung cancer. Clinically, the patient had some exertional dyspnea and shortness of breath. He has no hemoptysis. He has no weight loss. He has been sweating at nighttime. No fever. No chills. No change in his appetite. No change in voice. I performed a bronchoscopy on this patient and diagnosis small cell lung cancer was established. I performed a bronchoscopy and the diagnosis was consistent with small cell lung cancer. The patient has had some subsequent MRI of the brain that came back negative for metastases. His PET scan showed advanced stage right lung neoplasm with abnormal thoracic and supraclavicular lymphadenopathy and there was hepatic and osseous involvement. The patient had also suspicious subcentimeter focus in the region of the panc reatic tail and possible involvement of the left pubic bone, subtle sclerosis of the level of the left pubic bone in addition to proximal right femoral lesion at the level of the intertrochanteric area and the patient also had some mild height loss at the level of T12 vertebra with mild hypermetabolic activity. The patient was referred for oncology. He did not have a good encounter with Dr. REID and subsequently ended up going to [facility]. He was hospitalized immediately at [facility] and he was started on systemic chemotherapy and he has been also started on immunotherapy. I'm not sure of the exact regimen however my suspicion is that the patient is receiving a combination of c arboplatinum, ROASTMASTER-16 and Tecentric. Follow-up CAT scan of the chest that was done on 11/12/2020 showed a large right hilar and mediastinal mass with encasement of the right main pulmonary artery and the right sided bronchus intermedius/right lower lobe with secondary narrowing.. There was also by peripheral increased lung markings possibly consistent with metastatic disease. Multiple enlarging hypodense lesions in liver lesions were also seen. A follow- up CAT scan of the chest that was also done on 11/26/2020 showed essentially unchanged findings. At that point, the patient was seen again at the [facility] and the patient was given topotecan and the patient has already received one round of oral chemotherapy. He received Neulasta. He is presenting today to the burst department because of worsening shortness of breath over the past 1 week. The patient was having lower GI bleed with bright red blood per rectum. The patient started having lower GI bleed around 2-3 days ago and the patient was having several bouts on a daily basis. He arrived to the hospital and he stated count was 4 and his hemoglobin was at 5.7 with a white cell count of 2. Normal coagulation profile. Normal electrolytes. LFTs were normal.: 19 testing was negative. Chest x-ray showed a right infrahilar soft tissue density in the patient had increased interstitial markings bilaterally seen on a previous chest x-ray also. At this point in time, the patient is on 2 L about 2 by nasal cannula. The patient is sinus tachycardia with a heart rate in the 160-120 range. No hematemesis. No abdominal pain. Altered mental status. He already has received a unit of packed RBC. Platelets have been ordered. Another unit of packed RBC has been ordered. He was given a total of 1.5 L of normal saline in the emergency department. Patient was reevaluated today on 12/13/2020, remains in the ICU, he is on 2 L nasal cannula with O2 saturation 94%. Patient feels a bit short of breath. He received so far 3 units of packed RBCs and 1 unit of platelets. Continues to have pancytopenia with a WBC count of 1.9 hemoglobin of 6.3 and platelets are 27,000. Patient remains on IV fluid at 1 50 mL per hour in the form of 0.9 normal saline. His blood pressure is marginal. Hence I added antibiotics in the form of cefepime and vancomycin on this patient. Ulcers are pending. Patient is yet to be seen by oncology on consultation. Today I have recommended another unit of packed RBCs and another unit of platelets to be given since his hemoglobin remains low and platelets remain low. Chest x-ray showed minimal interstitial changes at the bases. Could be related to some component of inters titial edema or pneumonitis. Patient received significant amount of fluid since admission. But no antibiotics have been given, and I'm recommending cefepime and vancomycin to start empirically today. Electrolytes are normal renal profile is normal. Clinically the patient feels a bit better today compared to how he felt yesterday. Continues to have low back pain. Reevaluated today on 12/14/2020, remains in the ICU, on 6 L nasal cannula, slightly better as far as her hematologic profile, patient received a total of hemoglobin today is 8.7 and his platelets are 38,000. Patient is a bit more short of breath today, and chest x-ray is showing bilateral infiltrates suggestive of pneumonia, and the patient is already empirically on broad- spectrum antibiotics. Blood cultures are negative and urine culture is negative so far. Sputum cultures will be ordered. CBC count today is up to 2.3 h emoglobin 8.7 and left lites are normal renal profile is normal chest x-ray bilateral multifocal opacities noted in the lungs bilaterally. Objective - Vital Signs Vital signs: Vital Signs Temp 99.1 F 12/14/20 04:00 Pulse 75 12/14/20 07:00 Resp 24 12/14/20 07:00 BP 84/55 12/14/20 07:00 Pulse Ox 94 L 12/14/20 07:00 Intake & Output 12/13/20 12/14/20 12/14/20 18:59 06:59 18:59 Intake Total 2317 1154 Output Total 1113 9091 Balance 2262 575 Weight 80.2 kg 83.1 kg Intake: IV 1800 1950 Sodium Chloride 0.9% 1, 1800 1950 000 ml @ 150 mls/hr IV . Q6H40M [facility] Rx#:[id number] Intake, IV Titration 50 Amount Cefepime 1 gm In Sodium 50 Chloride 0.9% 50 ml @ 100 mls/hr IVPB ONCE@0900 ONE Rx#:[id number] Oral 580 Blood Product 947 Platelet Pheresis Pas 327 Psoralen Unit [id number] As-1 Unit 310 [id number] Rc As-1 Unit 310 [id number] Output: Urine 1115 1375 Other: Voiding Method Indwelling Catheter Indwelling Catheter # Bowel Movements 1 - Exam General: Revealed a 60-year-old white male in no distress. On 6 L nasal cannula. Derm: Areas of ecchymosis noted in both upper extremities. Head: Atraumatic, normocephalic. Eyes: PERRLA, EOMI, nonicteric. ENT: Nose and ears atraumatic, no thrush, no pharyngeal erythema Neck: No thyromegaly, no cervical lymphadenopathy, trachea midline, supple Mouth: no lip lesion, mucus membranes moist Cardiovascular: Normal S1 and S2, no S3 gallop. Lungs: Records and rhonchi noted at the bases. Abdominal: Soft nontender no megaly no rebound no guarding. Ext: No clubbing edema or cyanosis. Neuro: Alert and oriented 3 focal deficits. Psych: Normal mood, affect and normal mental status examination. - Labs CBC & Chem 7: 12/14/20 03:44 12/14/20 03:44 Labs: Abnormal Lab Results - Last 24 Hours (Table) 12/12/20 12/13/20 12/13/20 Range/Units 15:00 12:00 16:59 WBC 2.4 L (3.8-10.6) k/uL RBC 3.04 L (4.30-5.90) m/uL Hgb 10.2 L D (13.0-17.5) gm/dL Hct 29.0 L (39.0-53.0) % RDW 16.8 H (11.5-15.5) % Plt Count 45 L D (150-450) k/uL Neutrophils # 0.6 L (1.3-7.7) k/uL Sodium (137-145) mmol/L BUN (9-20) mg/dL Creatinine (0.66-1.25) mg/dL Glucose (74-99) mg/dL POC Glucose (mg/dL) (75-99) mg/dL Calcium (8.4-10.2) mg/dL Total Protein (6.3-8.2) g/dL Albumin (3.5-5.0) g/dL Urine Glucose (UA) 2+ H (Negative) Urine Blood Trace H (Negative) Ur Leukocyte Esterase Trace H (Negative) Urine RBC 15 H (0-5) /hpf Urine WBC 21 H (0-5) /hpf Urine Mucus Rare H (None) /hpf Crossmatch See Detail 12/13/20 12/13/20 12/14/20 Range/Units 18:11 20:56 03:44 WBC (3.8-10.6) k/uL RBC (4.30-5.90) m/uL Hgb (13.0-17.5) gm/dL Hct (39.0-53.0) % RDW (11.5-15.5) % Plt Count (150-450) k/uL Neutrophils # (1.3-7.7) k/uL Sodium 134 L (137-145) mmol/L BUN 7 L (9-20) mg/dL Creatinine 0.48 L (0.66-1.25) mg/dL Glucose 100 H (74-99) mg/dL POC Glucose (mg/dL) 191 H 136 H (75-99) mg/dL Calcium 7.9 L (8.4-10.2) mg/dL Total Protein 4.6 L (6.3-8.2) g/dL Albumin 2.2 L (3.5-5.0) g/dL Urine Glucose (UA) (Negative) Urine Blood (Negative) Ur Leukocyte Esterase (Negative) Urine RBC (0-5) /hpf Urine WBC (0-5) /hpf Urine Mucus (None) /hpf Crossmatch 12/14/20 Range/Units 03:44 WBC 2.3 L (3.8-10.6) k/uL RBC 2.64 L (4.30-5.90) m/uL Hgb 8.7 L D (13.0-17.5) gm/dL Hct 25.2 L (39.0-53.0) % RDW 17.7 H (11.5-15.5) % Plt Count 38 L (150-450) k/uL Neutrophils # 0.5 L (1.3-7.7) k/uL Sodium (137-145) mmol/L BUN (9-20) mg/dL Creatinine (0.66-1.25) mg/dL Glucose (74-99) mg/dL POC Glucose (mg/dL) (75-99) mg/dL Calcium (8.4-10.2) mg/dL Total Protein (6.3-8.2) g/dL Albumin (3.5-5.0) g/dL Urine Glucose (UA) (Negative) Urine Blood (Negative) Ur Leukocyte Esterase (Negative) Urine RBC (0-5) /hpf Urine WBC (0-5) /hpf Urine Mucus (None) /hpf Crossmatch Microbiology - Last 24 Hours (Table) 12/13/20 08:30 Blood Culture - Preliminary Blood No Growth after 24 hours 12/13/20 08:45 Blood Culture - Preliminary Blood No Growth after 24 hours 12/13/20 12:00 Urine Culture - Preliminary Urine,Clean Catch Assessment and Plan Assessment: Impression: Extensive stage primary small cell lung cancer with diffuse metastasis. Pancytopenia secondary to recent chemotherapy at the [facility]. Possible sepsis hence the patient will be placed empirically on antibiotics in the form of cefepime and vancomycin. Acute blood loss anemia, possible undergoing GI bleeding secondary to thrombocytopenia. Acute thrombocytopenia secondary to bone marrow suppression from systemic chemot herapy. History of underlying COPD , also suspect bilateral pneumonia, in immunosuppressed patient,gram-negative pneumonia is possible Recommendation: Continue present supportive care measures. Continue to monitor hemoglobin and platelets and transfuse accordingly. Seen by oncology on consultation. Continue antibiotics as ordered Continue to monitor in the ICU. Prognosis remains relatively guarded. Time with Patient: Less than 30
--- NOTE | 2020-12-14 12:33 | P.PN ---
Subjective Progress Note Date: 12/14/20 The patient continues to have some generalized weakness as well as shortness of breath at rest. Overall his condition is fairly stable compared to yesterday. No fever or chills. No nausea vomiting or obvious bleeding. He has not had any bowel movement today Objective - Vital Signs Vital signs: Vital Signs Temp 99.1 F 12/14/20 04:00 Pulse 75 12/14/20 07:00 Resp 24 12/14/20 07:00 BP 84/55 12/14/20 07:00 Pulse Ox 94 L 12/14/20 07:00 Intake & Output 12/13/20 12/14/20 12/14/20 18:59 06:59 18:59 Intake Total 3377 1950 Output Total 1115 1375 Balance 2262 575 Weight 80.2 kg 83.1 kg Intake: IV 1800 1950 Sodium Chloride 0.9% 1, 1800 1950 000 ml @ 150 mls/hr IV . Q6H40M [facility] Rx#:[id number] Intake, IV Titration 50 Amount Cefepime 1 gm In Sodium 50 Chloride 0.9% 50 ml @ 100 mls/hr IVPB ONCE@0900 ONE Rx#:[id number] Oral 580 Blood Product 947 Platelet Pheresis Pas 327 Psoralen Unit [id number] Rc As-1 Unit 310 [id number] As-1 Unit 310 [id number] Output: Urine 1115 1375 Other: Voiding Method Indwelling Catheter Indwelling Catheter # Bowel Movements 1 - Constitutional General appearance: Present: no acute distress - EENT Eyes: Present: EOMI ENT: Present: hearing grossly normal, normal oropharynx - Respiratory Respiratory: bilateral: diminished - Cardiovascular Rhythm: regular Heart sounds: normal: S1, S2 - Gastrointestinal General gastrointestinal: Present: normal bowel sounds, soft - Integumentary Integumentary: Present: normal - Neurologic Neurologic: Present: CNII-XII intact - Musculoskeletal Musculoskeletal: Present: generalized weakness, strength equal bilaterally - Psychiatric Psychiatric: Present: A&O x's 3, appropriate affect - Labs CBC & Chem 7: 12/14/20 03:44 12/14/20 03:44 Labs: Abnormal Lab Results - Last 24 Hours (Table) 12/12/20 12/13/20 12/13/20 Range/Units 15:00 12:00 16:59 WBC 2.4 L (3.8-10.6) k/uL RBC 3.04 L (4.30-5.90) m/uL Hgb 10.2 L D (13.0-17.5) gm/dL Hct 29.0 L (39.0-53.0) % RDW 16.8 H (11.5-15.5) % Plt Count 45 L D (150-450) k/uL Neutrophils # 0.6 L (1.3-7.7) k/uL Sodium (137-145) mmol/L BUN (9-20) mg/dL Creatinine (0.66-1.25) mg/dL Glucose (74-99) mg/dL POC Glucose (mg/dL) (75-99) mg/dL Calcium (8.4-10.2) mg/dL Total Protein (6.3-8.2) g/dL Albumin (3.5-5.0) g/dL Urine Glucose (UA) 2+ H (Negative) Urine Blood Trace H (Negative) Ur Leukocyte Esterase Trace H (Negative) Urine RBC 15 H (0-5) /hpf Urine WBC 21 H (0-5) /hpf Urine Mucus Rare H (None) /hpf Crossmatch See Detail 12/13/20 12/13/20 12/14/20 Range/Units 18:11 20:56 03:44 WBC (3.8-10.6) k/uL RBC (4.30-5.90) m/uL Hgb (13.0-17.5) gm/dL Hct (39.0-53.0) % RDW (11.5-15.5) % Plt Count (150-450) k/uL Neutrophils # (1.3-7.7) k/uL Sodium 134 L (137-145) mmol/L BUN 7 L (9-20) mg/dL Creatinine 0.48 L (0.66-1.25) mg/dL Glucose 100 H (74-99) mg/dL POC Glucose (mg/dL) 191 H 136 H (75-99) mg/dL Calcium 7.9 L (8.4-10.2) mg/dL Total Protein 4.6 L (6.3-8.2) g/dL Albumin 2.2 L (3.5-5.0) g/dL Urine Glucose (UA) (Negative) Urine Blood (Negative) Ur Leukocyte Esterase (Negative) Urine RBC (0-5) /hpf Urine WBC (0-5) /hpf Urine Mucus (None) /hpf Crossmatch 12/14/20 Range/Units 03:44 WBC 2.3 L (3.8-10.6) k/uL RBC 2.64 L (4.30-5.90) m/uL Hgb 8.7 L D (13.0-17.5) gm/dL Hct 25.2 L (39.0-53.0) % RDW 17.7 H (11.5-15.5) % Plt Count 38 L (150-450) k/uL Neutrophils # 0.5 L (1.3-7.7) k/uL Sodium (137-145) mmol/L BUN (9-20) mg/dL Creatinine (0.66-1.25) mg/dL Glucose (74-99) mg/dL POC Glucose (mg/dL) (75-99) mg/dL Calcium (8.4-10.2) mg/dL Total Protein (6.3-8.2) g/dL Albumin (3.5-5.0) g/dL Urine Glucose (UA) (Negative) Urine Blood (Negative) Ur Leukocyte Esterase (Negative) Urine RBC (0-5) /hpf Urine WBC (0-5) /hpf Urine Mucus (None) /hpf Crossmatch Microbiology - Last 24 Hours (Table) 12/13/20 08:30 Blood Culture - Preliminary Blood No Growth after 24 hours 12/13/20 08:45 Blood Culture - Preliminary Blood No Growth after 24 hours 12/13/20 12:00 Urine Culture - Preliminary Urine,Clean Catch Assessment and Plan (1) Pancytopenia due to antineoplastic chemotherapy Narrative/Plan: The patient's CBC today showed a hemoglobin of 8.7 versus 10.2 last night. However the patient received 2 units of blood with a hemoglobin of 6.3. Therefore the 8.7 is most likely the more accurate reading. Platelets were 38 versus 45, which is adequate as long as there is no obvious bleeding. The patient's WBC 2 remains low, with ANC of 500 - It was confirmed with the family that the patient had received his Neulasta on 12/03/20. He is therefore more than 10 days out from his dose. G-CSF will be added - Continue to monitor and transfuse for hemoglobin less than 7, and platelets less than 10. If there is concern for active bleeding, and transfused for platelets less than 40,000. Current Visit: Yes Status: Acute Code(s): D61.810 - ANTINEOPLASTIC CHEMOTHERAPY INDUCED PANCYTOPENIA; T45.1X5A - ADVERSE EFFECT OF ANTINEOPLASTIC AND IMMUNOSUP DRUGS, INIT SNOMED Code(s): 763760505204007 (2) GI bleed Narrative/Plan: The patient has had no obvious bleeding. As noted hemoglobin did drop to 8.7 from 10.2, but the current value is likely more accurate given that the patient did receive 2 units of PRBC and a hemoglobin level of 6.3. Continue to monitor with supportive transfusions as noted above. If there is evidence for recurrent bleed, plan to give platelets if level is less than 40, as well as DDAVP. In that situation it would also be reasonable to consider endoscopic evaluation Current Visit: Yes Status: Acute Code(s): K92.2 - GASTROINTESTINAL HEMORRHAGE, UNSPECIFIED SNOMED Code(s): 48709217 (3) Small cell lung cancer, right lower lobe Narrative/Plan: Treatment is currently on hold pending improvement in the acute situation. Current Visit: Yes Status: Acute Code(s): C34.31 - MALIGNANT NEOPLASM OF LOWER LOBE, RIGHT BRONCHUS OR LUNG SNOMED Code(s): 923585243
--- NOTE | 2020-12-14 13:12 | P.PN ---
Subjective Progress Note Date: 12/14/20 Principal diagnosis: Anemia 60-year-old male patient with metastatic small cell lung cancer who is currently undergoing oral chemotherapy with topotecan a total of 3.5 mg 5 days on 21 days off at [facility]. He presented to the emergency department because of worsening shortness of breath over the past 1 week. The patient was having lower GI bleed with bright red blood per rectum. The patient was reporting several bouts of daily hematochezia. He arrived to the hospital with hemoglobin was at 5.7 with a white cell count of 2. Normal coagulation profile. Normal electrolytes. LFTs were normal. Patient was admitted to ICU. 12/14/2020: She had worsening difficulty breathing last night. Patient was given IV Lasix which she states improved his symptoms. Patient is now status post 4 units of PRBC. One unit of platelets. Critical care team following as well as oncology team. He currently denies any nausea vomiting fever or chills. He remains on IV antibiotics for his pneumonia Objective - Vital Signs Vital signs: Vital Signs Temp 99.1 F 12/14/20 04:00 Pulse 75 12/14/20 07:00 Resp 24 12/14/20 07:00 BP 84/55 12/14/20 07:00 Pulse Ox 94 L 12/14/20 07:00 Intake & Output 12/13/20 12/14/20 12/14/20 18:59 06:59 18:59 Intake Total 3377 1950 Output Total 1115 1375 Balance 2262 575 Weight 80.2 kg 83.1 kg Intake: IV 1800 1950 Sodium Chloride 0.9% 1, 1800 1950 000 ml @ 150 mls/hr IV . Q6H40M [facility] Rx#:[id number] Intake, IV Titration 50 Amount Cefepime 1 gm In Sodium 50 Chloride 0.9% 50 ml @ 100 mls/hr IVPB ONCE@0900 ONE Rx#:[id number] Oral 580 Blood Product 947 Platelet Pheresis Pas 327 Psoralen Unit [id number] As-1 Unit 310 [id number] As-1 Unit 310 [id number] Output: Urine 1115 1375 Other: Voiding Method Indwelling Catheter Indwelling Catheter # Bowel Movements 1 - Exam Physical examination: General: non toxic, no distress, appears at stated age, normal weight Derm: no unusual rashes/lesions no unusual ecchymoses, warm, dry Head: atraumatic, normocephalic, symmetric Eyes: EOMI, no lid lag, anicteric sclera, pupils equal round reactive to light ENT: Nose and ears atraumatic, no thrush, no pharyngeal erythema Neck: No thyromegaly, no cervical lymphadenopathy, trachea midline, supple Mouth: no lip lesion, mucus membranes moist Cardiovascular: S1S2 reg, no murmur, positive posterior tibial pulse bilateral, no edema, capillary refill less than 2 seconds Lungs: CTA bilateral, no rhonchi, no rales , no accessory muscle use Abdominal: soft, nontender to palpation, no guarding, no appreciable organomegaly, normal bowel sounds Ext: no gross muscle atrophy, muscle strength 4 out of 5 in all 4 extremities grossly, no contractures, Neuro: CN II-XI grossly intact, light touch intact all 4 extremities, finger to nose within normal limits, Psych: Alert, oriented, appropriate affect - Labs CBC & Chem 7: 12/14/20 03:44 12/14/20 03:44 Labs: Abnormal Lab Results - Last 24 Hours (Table) 12/13/20 12/13/20 12/13/20 Range/Units 12:00 16:59 18:11 WBC 2.4 L (3.8-10.6) k/uL RBC 3.04 L (4.30-5.90) m/uL Hgb 10.2 L D (13.0-17.5) gm/dL Hct 29.0 L (39.0-53.0) % RDW 16.8 H (11.5-15.5) % Plt Count 45 L D (150-450) k/uL Neutrophils # 0.6 L (1.3-7.7) k/uL Sodium (137-145) mmol/L BUN (9-20) mg/dL Creatinine (0.66-1.25) mg/dL Glucose (74-99) mg/dL POC Glucose (mg/dL) 191 H (75-99) mg/dL Calcium (8.4-10.2) mg/dL Total Protein (6.3-8.2) g/dL Albumin (3.5-5.0) g/dL Urine Glucose (UA) 2+ H (Negative) Urine Blood Trace H (Negative) Ur Leukocyte Esterase Trace H (Negative) Urine RBC 15 H (0-5) /hpf Urine WBC 21 H (0-5) /hpf Urine Mucus Rare H (None) /hpf 12/13/20 12/14/20 12/14/20 Range/Units 20:56 03:44 03:44 WBC 2.3 L (3.8-10.6) k/uL RBC 2.64 L (4.30-5.90) m/uL Hgb 8.7 L D (13.0-17.5) gm/dL Hct 25.2 L (39.0-53.0) % RDW 17.7 H (11.5-15.5) % Plt Count 38 L (150-450) k/uL Neutrophils # 0.5 L (1.3-7.7) k/uL Sodium 134 L (137-145) mmol/L BUN 7 L (9-20) mg/dL Creatinine 0.48 L (0.66-1.25) mg/dL Glucose 100 H (74-99) mg/dL POC Glucose (mg/dL) 136 H (75-99) mg/dL Calcium 7.9 L (8.4-10.2) mg/dL Total Protein 4.6 L (6.3-8.2) g/dL Albumin 2.2 L (3.5-5.0) g/dL Urine Glucose (UA) (Negative) Urine Blood (Negative) Ur Leukocyte Esterase (Negative) Urine RBC (0-5) /hpf Urine WBC (0-5) /hpf Urine Mucus (None) /hpf Microbiology - Last 24 Hours (Table) 12/13/20 08:30 Blood Culture - Preliminary Blood No Growth after 24 hours 12/13/20 08:45 Blood Culture - Preliminary Blood No Growth after 24 hours 12/13/20 12:00 Urine Culture - Preliminary Urine,Clean Catch Assessment and Plan Assessment: Acute blood loss anemia secondary to GI bleeding in setting of severe thrombocytopenia - patient is currently status post 4 units PRBC and 1 unit of platelets. Hematology and critical care team following. Patient's hemoglobin did improve to 10.2 from 5.7 however today's hemoglobin is 8.7. I have ordered a stat repeat. If patient's hemoglobin continues to decrease therapy concern for possibility of underlying GI bleed. And would benefit from surgery/GI consultation Pancytopenia -Likely due to undergoing chemotherapy with bone marrow suppression. Hematology oncology following Stage IV small cell lung cancer with diffuse metastatic disease -Hematology oncology is currently on consult. Shortness of breath, likely secondary to metastatic small cell lung cancer and underlying COPD/PNA -Currently patient is on 4 L nasal cannula which has increased from 2 L nasal cannula yesterday. Concern for worsening pneumonia. Patient is on broad- spectrum IV antibiotics cefepime, pulmonary critical care team following. Patient was given a dose of Lasix today with improvement in respiratory function. Chest x-ray reviewed Overall prognosis guarded CODE STATUS: Full Code Anticipated discharge date: 3-[address]: Home (1) Anemia Current Visit: Yes Status: Acute Code(s): D64.9 - ANEMIA, UNSPECIFIED SNOM ED Code(s): 193681419 (2) GI bleed Current Visit: Yes Status: Acute Code(s): K92.2 - GASTROINTESTINAL HEMORRHAGE, UNSPECIFIED SNOMED Code(s): 99068791 (3) History of lung cancer Current Visit: Yes Status: Acute Code(s): Z85.118 - PERSONAL HISTORY OF MALIGNANT NEOPLASM OF BRONCHUS AND LUNG SNOMED Code(s): 835522684 (4) Thrombocytopenia Current Visit: Yes Status: Acute Code(s): D69.6 - THROMBOCYTOPENIA, UNSPECIFIED SNOMED Code(s): 191462099
[2020-12-14] MEDS: guaiFENesin-DM 100-10MG/5ML 10 ML CUP PO PRN ×2 (13:24→21:17)
[2020-12-14 15:11] LABS: Anisocytosis Slight; HCT 28.3 % (39.0-53.0); HGB 10.1 gm/dL (13.0-17.5); MCH 34.1 pg (25.0-35.0); MCHC 35.7 g/dL (31.0-37.0); MCV 95.6 fL (80.0-100.0); Macrocytosis Slight; Mean Platelet Volume 7.3; RBC 2.97 m/uL (4.30-5.90); RDW 17.6 % (11.5-15.5); WBC 2.4 k/uL (3.8-10.6)
[2020-12-14 15:13] LABS: Platelet Count 39 k/uL (150-450)
[2020-12-14 16:41] LABS: Glucose,Whole Blood 144 mg/dL (75-99)
[2020-12-14] MEDS: FILGRASTIM-SNDZ 480 MCG/0.8 ML SYRINGE SQ SCH (18:42)
[2020-12-14] MEDS: traZODone HCL 50 MG TAB PO SCH (21:17)
[2020-12-15 04:52] LABS: African American GFR (CKD) >90 (>60 ml/min/1.73 sqM); Anion Gap 3 mmol/L; Blood Urea Nitrogen 8 mg/dL (9-20); Calcium 8.1 mg/dL (8.4-10.2); Carbon Dioxide 28 mmol/L (22-30); Chloride 103 mmol/L (98-107); Glucose 108 mg/dL (74-99); Non-African American GFR(CKD) >90 (>60 ml/min/1.73 sqM); Sodium 134 mmol/L (137-145)
[2020-12-15 04:59] LABS: Anisocytosis Slight; Basophils % (A) 0 %; Eosinophils % (A) 1 %; HCT 27.3 % (39.0-53.0); HGB 9.2 gm/dL (13.0-17.5); Lymphocytes # (A) 2.3 k/uL (1.0-4.8); Lymphocytes % (A) 73 %; MCH 32.8 pg (25.0-35.0); MCHC 33.6 g/dL (31.0-37.0); MCV 97.6 fL (80.0-100.0); Macrocytosis Slight; Mean Platelet Volume 8.2; Monocytes # (A) 0.1 k/uL (0-1.0); Monocytes % (A) 2 %; Neutrophils # (A) 0.7 k/uL (1.3-7.7); Neutrophils % (A) 21 %; Platelet Count 23 k/uL (150-450); RBC 2.79 m/uL (4.30-5.90); RDW 16.4 % (11.5-15.5); WBC 3.2 k/uL (3.8-10.6)
[2020-12-15] MEDS: guaiFENesin-DM 100-10MG/5ML 10 ML CUP PO PRN ×3 (06:36→21:47)
--- NOTE | 2020-12-15 07:42 | XR ---
EXAMINATION TYPE: XR chest 1V portable DATE OF EXAM: 12/15/2020 CLINICAL HISTORY: Difficulty breathing progress study. TECHNIQUE: Single AP portable upright view of the chest is obtained. COMPARISON: Chest x-ray from one day earlier and older studies. FINDINGS: Background chronic emphysematous change with increased opacities in the mid to lower lungs bilaterally greater in the periphery redemonstrated. Cardiac silhouette size stable and upper limits of normal. Osseous structures remain intact. IMPRESSION: Persistent bilateral multifocal acute opacities greatest in the lower lungs and periphery consistent with covid-19 infection, no significant interval change from 1 day earlier.
[2020-12-15] MEDS: SODIUM CHLORIDE 0.9% 1,000 ML IV SCH ×2 (09:25→18:00)
[2020-12-15] MEDS: GABAPENTIN 300 MG CAP PO SCH ×3 (09:27→21:09)
[2020-12-15] MEDS: MORPHINE SULFATE ER 60 MG TABLET PO SCH ×2 (09:27→21:09)
[2020-12-15] MEDS: CEFEPIME 2 GM in SODIUM CHLORIDE 0.9% 100 ML IVPB SCH ×5 (09:27→23:56)
[2020-12-15] MEDS: METOPROLOL SUCCINATE (ER) 25 MG TAB.ER.24H PO SCH (09:28)
[2020-12-15] MEDS: PANTOPRAZOLE 40 MG/10 ML VIAL IVP SCH (09:29)
[2020-12-15] MEDS ORDERED: SODIUM CHLORIDE 0.65% NASAL SPRAY 44 ML BTL NASAL PRN (09:57)
[2020-12-15] MEDS ORDERED: FUROSEMIDE 10 MG/ML 4 ML VIAL IV STA (09:57)
[2020-12-15 11:29] LABS: Glucose,Whole Blood 153 mg/dL (75-99)
--- NOTE | 2020-12-15 12:40 | P.PN ---
Subjective Progress Note Date: 12/15/20 Hospital course: 60-year-old male patient with metastatic small cell lung cancer who is currently undergoing oral chemotherapy with topotecan a total of 3.5 mg 5 days on 21 days off at [facility]. He presented to the emergency department because of worsening shortness of breath over the past 1 week. The patient was having lower GI bleed with bright red blood per rectum. The patient was reporting several bouts of daily hematochezia. He arrived to the hospital with hemoglobin was at 5.7 with a white cell count of 2. Normal coagulation profile. Normal electrolytes. LFTs were normal. Patient was admitted to ICU. Subjective: 12/15/2020: Patient feels okay today, he denies shortness of breath, no gross bleeding. Denies chest pain or abdominal pain. No hematuria dysuria hematemesis or hematochezia. He has received a total of 4 units of packed RBCs and 1 unit of platelets. He is not on pressors, denies nausea vomiting and remains afebrile. Objective - Vital Signs Vital signs: Vital Signs Temp 97.2 F L 12/15/20 08:00 Pulse 95 12/15/20 10:00 Resp 28 H 12/15/20 10:00 BP 111/63 12/15/20 10:00 Pulse Ox 95 12/15/20 10:00 Intake & Output 12/14/20 12/15/20 12/15/20 18:59 06:59 18:59 Intake Total 1300 825 450 Output Total 3955 1185 300 Balance -2655 -360 150 Weight 77.7 kg Intake: IV 900 825 150 Sodium Chloride 0.9% 1, 900 825 150 000 ml @ 75 mls/hr IV . [id number] [facility] Rx#:[id number] Oral 400 300 Output: Urine 3955 1185 300 Other: Voiding Method Indwelling Catheter Indwelling Catheter - Exam Constitutional: No acute distress, conversant, pleasant Eyes: Anicteric sclerae, moist conjunctiva, no lid-lag, PERRLA ENMT: NC/AT Neck:Supple, FROM, no masses, or JVD, No carotid bruits Lungs: Clear to auscultation, Clear to percussion, Normal respiratory effort, no accessory muscle use Cardiovascular: Heart regular in rate and rhythm, No murmurs, gallops, or rubs no peripheral edema Abdominal: Soft Nontender, non distended Skin: Normal temperature, tone, texture, turgor, No induration No subcutaneous nodules, No rash, lesions, No ulcers Extremities:No digital cyanosis No clubbing, Pedal pulses intact and symmetrical Radial pulses intact and symmetrical Normal gait and station, No calf tenderness Psychiatric: Alert and oriented to person, place and time, Appropriate affect Intact judgement Neuro: Muscles Strength 5/5 in all 4 extremities, Sensation to light touch grossly present throughout, Cranial nerves II-XII grossly intact. No focal sensory deficits - Labs CBC & Chem 7: 12/15/20 04:13 12/15/20 04:13 Labs: Abnormal Lab Results - Last 24 Hours (Table) 12/14/20 12/14/20 12/15/20 Range/Units 14:56 16:39 04:13 WBC 2.4 L 3.2 L (3.8-10.6) k/uL RBC 2.97 L 2.79 L (4.30-5.90) m/uL Hgb 10.1 L 9.2 L (13.0-17.5) gm/dL Hct 28.3 L 27.3 L (39.0-53.0) % RDW 17.6 H 16.4 H (11.5-15.5) % Plt Count 39 L 23 L (150-450) k/uL Neutrophils # 0.7 L (1.3-7.7) k/uL Sodium (137-145) mmol/L BUN (9-20) mg/dL Creatinine (0.66-1.25) mg/dL Glucose (74-99) mg/dL POC Glucose (mg/dL) 144 H (75-99) mg/dL Calcium (8.4-10.2) mg/dL 12/15/20 12/15/20 Range/Units 04:13 11:28 WBC (3.8-10.6) k/uL RBC (4.30-5.90) m/uL Hgb (13.0-17.5) gm/dL Hct (39.0-53.0) % RDW (11.5-15.5) % Plt Count (150-450) k/uL Neutrophils # (1.3-7.7) k/uL Sodium 134 L (137-145) mmol/L BUN 8 L (9-20) mg/dL Creatinine 0.52 L (0.66-1.25) mg/dL Glucose 108 H (74-99) mg/dL POC Glucose (mg/dL) 153 H (75-99) mg/dL Calcium 8.1 L (8.4-10.2) mg/dL Microbiology - Last 24 Hours (Table) 12/13/20 08:30 Blood Culture - Preliminary Blood No Growth after 48 hours 12/13/20 08:45 Blood Culture - Preliminary Blood No Growth after 48 hours 12/13/20 12:00 Urine Culture - Final Urine,Clean Catch Assessment and Plan Plan: Acute blood loss anemia secondary to GI bleeding in setting of severe thrombocytopenia - patient is status post 4 units PRBC and 1 unit of platelets. Hematology and critical care team following. Patient's hemoglobin did improve to 10.1 from 5.7, hemoglobin now 9.2. Monitor H&H. Pancytopenia -Likely due to undergoing chemotherapy with bone marrow suppression. Hematology oncology following, input appreciated. Patient received Neulasta 12/03/2020. G-CSF (filgrastim) was added prior hematology. Plan to transfuse if hemoglobin is below 7 or platelets below 40,000. Platelets today are 23,000. 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 Shortness of breath, likely secondary to metastatic small cell lung cancer and underlying COPD/PNA and anemia. -Currently patient is on 4-6 L nasal cannula which has increased from 2 L nasal cannula upon admission. continue on IV antibiotics cefepime, pulmonary critical care team following. Patient is on Lasix as needed. function. -Leukopenia: WBC improved to 3.2 from 2.4. Overall prognosis guarded, remains in intensive care unit. CODE STATUS: Full Code Anticipated discharge date: 3-[address]: Home versus rehab.
--- NOTE | 2020-12-15 12:43 | P.PN ---
Subjective Progress Note Date: 12/15/20 Principal diagnosis: Small cell lung cancer with pancytopenia 60-year-old male patient with metastatic small cell lung cancer who is currently undergoing oral chemotherapy with topotecan a total of 3.5 mg 5 days on 21 days off. This was given to him through the [facility]. I diagnosis patient having metastatic small cell lung cancer back in June 2020. At that time, the patient he started having worsening shortness of breath and he was seen by his primary care physician he was diagnosed having a pneumonia of the right lower lobe. Following that he was given antibiotics and steroids without much help. Upon follow-up, he was referred for a CAT scan of the chest and the CAT scan of the chest was completed at [facility] on 06/07/2020. I had the chance in reviewing the CAT scan images and the patient was found to have some mild to moderate emphysematous changes in the upper lobes bilaterally. There was however a right hilar mass/masslike consolidation and mediastinal lymphadenopathy involving the right paratracheal and subcarinal lesion and there was an abnormal right tracheobronchial masslike lymph node measuring 2.7 x 2.1 cm in size. There was also paratracheal lymph nodes and these were extending to the superior mediastinum. There were also smaller hepatic lesions which obviously raises the concern for malignancy. For that reason, the patient was referred to me with a concern of lung cancer. Clinically, the patient had some exertional dyspnea and shortness of breath. He has no hemoptysis. He has no weight loss. He has been sweating at nighttime. No fever. No chills. No change in his appetite. No change in voice. I performed a bronchoscopy on this patient and diagnosis small cell lung cancer was established. I performed a bronchoscopy and the diagnosis was consistent with small cell lung cancer. The patient has had some subsequent MRI of the brain that came back negative for metastases. His PET scan showed advanced stage right lung neoplasm with abnormal thoracic and supraclavicular lymphadenopathy and there was hepatic and osseous involvement. The patient had also suspicious subcentimeter focus in the region of the panc reatic tail and possible involvement of the left pubic bone, subtle sclerosis of the level of the left pubic bone in addition to proximal right femoral lesion at the level of the intertrochanteric area and the patient also had some mild height loss at the level of T12 vertebra with mild hypermetabolic activity. The patient was referred for oncology. He did not have a good encounter with Dr. REID and subsequently ended up going to [facility]. He was hospitalized immediately at [facility] and he was started on systemic chemotherapy and he has been also started on immunotherapy. I'm not sure of the exact regimen however my suspicion is that the patient is receiving a combination of c arboplatinum, FREIGHT ELEVATOR ERECTOR-16 and Tecentric. Follow-up CAT scan of the chest that was done on 11/12/2020 showed a large right hilar and mediastinal mass with encasement of the right main pulmonary artery and the right sided bronchus intermedius/right lower lobe with secondary narrowing.. There was also by peripheral increased lung markings possibly consistent with metastatic disease. Multiple enlarging hypodense lesions in liver lesions were also seen. A follow- up CAT scan of the chest that was also done on 11/26/2020 showed essentially unchanged findings. At that point, the patient was seen again at the [facility] and the patient was given topotecan and the patient has already received one round of oral chemotherapy. He received Neulasta. He is presenting today to the burst department because of worsening shortness of breath over the past 1 week. The patient was having lower GI bleed with bright red blood per rectum. The patient started having lower GI bleed around 2-3 days ago and the patient was having several bouts on a daily basis. He arrived to the hospital and he stated count was 4 and his hemoglobin was at 5.7 with a white cell count of 2. Normal coagulation profile. Normal electrolytes. LFTs were normal.: 19 testing was negative. Chest x-ray showed a right infrahilar soft tissue density in the patient had increased interstitial markings bilaterally seen on a previous chest x-ray also. At this point in time, the patient is on 2 L about 2 by nasal cannula. The patient is sinus tachycardia with a heart rate in the 160-120 range. No hematemesis. No abdominal pain. Altered mental status. He already has received a unit of packed RBC. Platelets have been ordered. Another unit of packed RBC has been ordered. He was given a total of 1.5 L of normal saline in the emergency department. Patient was reevaluated today on 12/13/2020, remains in the ICU, he is on 2 L nasal cannula with O2 saturation 94%. Patient feels a bit short of breath. He received so far 3 units of packed RBCs and 1 unit of platelets. Continues to have pancytopenia with a WBC count of 1.9 hemoglobin of 6.3 and platelets are 27,000. Patient remains on IV fluid at 1 50 mL per hour in the form of 0.9 normal saline. His blood pressure is marginal. Hence I added antibiotics in the form of cefepime and vancomycin on this patient. Ulcers are pending. Patient is yet to be seen by oncology on consultation. Today I have recommended another unit of packed RBCs and another unit of platelets to be given since his hemoglobin remains low and platelets remain low. Chest x-ray showed minimal interstitial changes at the bases. Could be related to some component of inters titial edema or pneumonitis. Patient received significant amount of fluid since admission. But no antibiotics have been given, and I'm recommending cefepime and vancomycin to start empirically today. Electrolytes are normal renal profile is normal. Clinically the patient feels a bit better today compared to how he felt yesterday. Continues to have low back pain. Reevaluated today on 12/14/2020, remains in the ICU, on 6 L nasal cannula, slightly better as far as her hematologic profile, patient received a total of hemoglobin today is 8.7 and his platelets are 38,000. Patient is a bit more short of breath today, and chest x-ray is showing bilateral infiltrates suggestive of pneumonia, and the patient is already empirically on broad- spectrum antibiotics. Blood cultures are negative and urine culture is negative so far. Sputum cultures will be ordered. CBC count today is up to 2.3 h emoglobin 8.7 and left lites are normal renal profile is normal chest x-ray bilateral multifocal opacities noted in the lungs bilaterally. Reevaluated today on 12/15/2020, patient remains in the ICU, on 6 L nasal cannula with O2 sats of 96 5%. Remains on IV fluid at 0.9 normal saline 75 mL per hour. Patient seems to be quite comfortable, his chest x-ray continues show by basilar infiltrates, however bed back to his previous x-rays, and this abnormality in the bases especially in the right lower lobe has been noted even going back to June when his diagnosis of lung cancer was made. Patient did receive Lasix yesterday, remains on antibiotics in the form of cefepime. Also vancomycin. Patient will receive another dose of Lasix today. And his colon cancer screening was negative. Scan is coming up nicely up to 3.2 today, hemoglobin is holding at 9.2, however platelets remained low at 23,000, no active bleeding noted, hence no platelets transfusion as recommended by hematology on the case. Electrolytes and renal profile are normal. Objective - Vital Signs Vital signs: Vital Signs Temp 97.2 F L 12/15/20 08:00 Pulse 95 12/15/20 10:00 Resp 28 H 12/15/20 10:00 BP 111/63 12/15/20 10:00 Pulse Ox 95 12/15/20 10:00 Intake & Output 12/14/20 12/15/20 12/15/20 18:59 06:59 18:59 Intake Total 1300 825 450 Output Total 3955 1185 300 Balance -2655 -360 150 Weight 77.7 kg Intake: IV 900 825 150 Sodium Chloride 0.9% 1, 900 825 150 000 ml @ 75 mls/hr IV . [id number] [facility] Rx#:[id number] Oral 400 300 Output: Urine 3955 1185 300 Other: Voiding Method Indwelling Catheter Indwelling Catheter - Exam General: Revealed a 60-year-old white male in no distress. On 6 L nasal cannula. Seems to be comfortable. Derm: Areas of ecchymosis noted in both upper extremities. Head: Atraumatic, normocephalic. Eyes: PERRLA, EOMI, nonicteric. ENT: Nose and ears atraumatic, no thrush, no pharyngeal erythema Neck: No thyromegaly, no cervical lymphadenopathy, trachea midline, supple Mouth: no lip lesion, mucus membranes moist Cardiovascular: Normal S1 and S2, no S3 gallop. Lungs: Records at the bases, symmetrical chest expansion. Abdominal: Soft nontender no megaly no rebound no guarding. Ext: No clubbing edema or cyanosis. Ecchymosis is noted in both arms Neuro: Alert and oriented 3 focal deficits. Psych: Normal mood, affect and normal mental status examination. - Labs CBC & Chem 7: 12/15/20 04:13 12/15/20 04:13 Labs: Abnormal Lab Results - Last 24 Hours (Table) 12/14/20 12/14/20 12/15/20 Range/Units 14:56 16:39 04:13 WBC 2.4 L 3.2 L (3.8-10.6) k/uL RBC 2.97 L 2.79 L (4.30-5.90) m/uL Hgb 10.1 L 9.2 L (13.0-17.5) gm/dL Hct 28.3 L 27.3 L (39.0-53.0) % RDW 17.6 H 16.4 H (11.5-15.5) % Plt Count 39 L 23 L (150-450) k/uL Neutrophils # 0.7 L (1.3-7.7) k/uL Sodium (137-145) mmol/L BUN (9-20) mg/dL Creatinine (0.66-1.25) mg/dL Glucose (74-99) mg/dL POC Glucose (mg/dL) 144 H (75-99) mg/dL Calcium (8.4-10.2) mg/dL 12/15/20 12/15/20 Range/Units 04:13 11:28 WBC (3.8-10.6) k/uL RBC (4.30-5.90) m/uL Hgb (13.0-17.5) gm/dL Hct (39.0-53.0) % RDW (11.5-15.5) % Plt Count (150-450) k/uL Neutrophils # (1.3-7.7) k/uL Sodium 134 L (137-145) mmol/L BUN 8 L (9-20) mg/dL Creatinine 0.52 L (0.66-1.25) mg/dL Glucose 108 H (74-99) mg/dL POC Glucose (mg/dL) 153 H (75-99) mg/dL Calcium 8.1 L (8.4-10.2) mg/dL Microbiology - Last 24 Hours (Table) 12/13/20 08:30 Blood Culture - Preliminary Blood No Growth after 48 hours 12/13/20 08:45 Blood Culture - Preliminary Blood No Growth after 48 hours 12/13/20 12:00 Urine Culture - Final Urine,Clean Catch Assessment and Plan Assessment: Impression: Extensive stage primary small cell lung cancer with diffuse metastasis. Pancytopenia secondary to recent chemotherapy at the [facility]. Possible sepsis and by basilar pneumonia, continue cefepime, cultures are so far nondiagnostic. Acute blood loss anemia, possible undergoing GI bleeding secondary to thrombocytopenia. Acute thrombocytopenia secondary to bone marrow suppression from systemic chemotherapy. History of underlying COPD , possible bibasilar pneumonia, however now that I reviewed his old x-rays even at the time of diagnosis in June, no abnormalities in the right lower lobe and left lower lobe was even noted back then. This may be related to his underlying malignancy Recommendation: Continue present supportive care measures. Patient will be given a dose of Lasix again today, he received significant amount of fluids when he arrived initially to the ICU. Continue to monitor hemoglobin and platelets and transfuse accordingly. Continue antibiotics as ordered Continue to monitor in the ICU. Prognosis remains relatively guarded. Time with Patient: Less than 30
[2020-12-15 16:47] LABS: Glucose,Whole Blood 163 mg/dL (75-99)
[2020-12-15] MEDS: FILGRASTIM-SNDZ 480 MCG/0.8 ML SYRINGE SQ SCH (19:04)
[2020-12-15] MEDS: traZODone HCL 50 MG TAB PO SCH (21:14)
[2020-12-15 21:19] LABS: Glucose,Whole Blood 143 mg/dL (75-99)
[2020-12-16] MEDS: guaiFENesin-DM 100-10MG/5ML 10 ML CUP PO PRN ×2 (04:19→17:25)
[2020-12-16 04:24] LABS: Anisocytosis Slight; Basophils % (A) 0 %; Eosinophils # (A) 0.1 k/uL (0-0.7); Eosinophils % (A) 2 %; HCT 27.8 % (39.0-53.0); HGB 9.6 gm/dL (13.0-17.5); Lymphocytes # (A) 2.6 k/uL (1.0-4.8); Lymphocytes % (A) 70 %; MCH 33.1 pg (25.0-35.0); MCHC 34.6 g/dL (31.0-37.0); MCV 95.6 fL (80.0-100.0); Mean Platelet Volume 8.2; Monocytes # (A) 0.1 k/uL (0-1.0); Monocytes % (A) 2 %; Neutrophils # (A) 0.9 k/uL (1.3-7.7); Neutrophils % (A) 24 %; RBC 2.91 m/uL (4.30-5.90); RDW 16.3 % (11.5-15.5); WBC 3.8 k/uL (3.8-10.6)
[2020-12-16 04:28] LABS: Platelet Count 17 k/uL (150-450)
[2020-12-16 05:48] LABS: ALT 36 U/L (4-49); AST 38 U/L (17-59); African American GFR (CKD) >90 (>60 ml/min/1.73 sqM); Albumin 2.8 g/dL (3.5-5.0); Alkaline Phosphatase 108 U/L (38-126); Anion Gap 4 mmol/L; Blood Urea Nitrogen 10 mg/dL (9-20); Calcium 8.4 mg/dL (8.4-10.2); Carbon Dioxide 30 mmol/L (22-30); Chloride 99 mmol/L (98-107); Glucose 111 mg/dL (74-99); Non-African American GFR(CKD) >90 (>60 ml/min/1.73 sqM); Sodium 133 mmol/L (137-145); Total Bilirubin 1.4 mg/dL (0.2-1.3); Total Protein 5.6 g/dL (6.3-8.2)
--- NOTE | 2020-12-16 07:11 | XR ---
EXAMINATION TYPE: XR chest 1V portable DATE OF EXAM: 12/16/2020 HISTORY: Shortness of breath. COMPARISON: 12/15/2020 TECHNIQUE: Single view of the chest is submitted. FINDINGS: Airspace and interstitial infiltrates persist bilaterally. Small bilateral pleural effusions unchange d. There is no evidence for focal infiltrate. The heart is stable. Hilar and mediastinal structures are within normal limits. Degenerative changes are seen of the dorsal spine. IMPRESSION: 1. Airspace and interstitial infiltrates persist bilaterally. Small bilateral pleural effusions unch anged.
[2020-12-16] MEDS: CEFEPIME 2 GM in SODIUM CHLORIDE 0.9% 100 ML IVPB SCH ×3 (08:27→23:58)
[2020-12-16] MEDS: MORPHINE SULFATE ER 60 MG TABLET PO SCH ×2 (08:28→20:03)
[2020-12-16] MEDS: PANTOPRAZOLE 40 MG/10 ML VIAL IVP SCH (08:28)
[2020-12-16] MEDS: METOPROLOL SUCCINATE (ER) 25 MG TAB.ER.24H PO SCH ×3 (08:29→16:18)
[2020-12-16] MEDS: GABAPENTIN 300 MG CAP PO SCH ×3 (08:29→20:03)
[2020-12-16 11:13] LABS: Glucose,Whole Blood 118 mg/dL (75-99)
[2020-12-16 11:32] VITALS: BMI 24.8
--- NOTE | 2020-12-16 13:20 | P.PN ---
Subjective Progress Note Date: 12/16/20 Principal diagnosis: Small cell lung cancer with pancytopenia 60-year-old male patient with metastatic small cell lung cancer who is currently undergoing oral chemotherapy with topotecan a total of 3.5 mg 5 days on 21 days off. This was given to him through the [facility]. I diagnosis patient having metastatic small cell lung cancer back in June 2020. At that time, the patient he started having worsening shortness of breath and he was seen by his primary care physician he was diagnosed having a pneumonia of the right lower lobe. Following that he was given antibiotics and steroids without much help. Upon follow-up, he was referred for a CAT scan of the chest and the CAT scan of the chest was completed at [facility] on 06/07/2020. I had the chance in reviewing the CAT scan images and the patient was found to have some mild to moderate emphysematous changes in the upper lobes bilaterally. There was however a right hilar mass/masslike consolidation and mediastinal lymphadenopathy involving the right paratracheal and subcarinal lesion and there was an abnormal right tracheobronchial masslike lymph node measuring 2.7 x 2.1 cm in size. There was also paratracheal lymph nodes and these were extending to the superior mediastinum. There were also smaller hepatic lesions which obviously raises the concern for malignancy. For that reason, the patient was referred to me with a concern of lung cancer. Clinically, the patient had some exertional dyspnea and shortness of breath. He has no hemoptysis. He has no weight loss. He has been sweating at nighttime. No fever. No chills. No change in his appetite. No change in voice. I performed a bronchoscopy on this patient and diagnosis small cell lung cancer was established. I performed a bronchoscopy and the diagnosis was consistent with small cell lung cancer. The patient has had some subsequent MRI of the brain that came back negative for metastases. His PET scan showed advanced stage right lung neoplasm with abnormal thoracic and supraclavicular lymphadenopathy and there was hepatic and osseous involvement. The patient had also suspicious subcentimeter focus in the region of the panc reatic tail and possible involvement of the left pubic bone, subtle sclerosis of the level of the left pubic bone in addition to proximal right femoral lesion at the level of the intertrochanteric area and the patient also had some mild height loss at the level of T12 vertebra with mild hypermetabolic activity. The patient was referred for oncology. He did not have a good encounter with Dr. REID and subsequently ended up going to [facility]. He was hospitalized immediately at [facility] and he was started on systemic chemotherapy and he has been also started on immunotherapy. I'm not sure of the exact regimen however my suspicion is that the patient is receiving a combination of c arboplatinum, [employer]-16 and Tecentric. Follow-up CAT scan of the chest that was done on 11/12/2020 showed a large right hilar and mediastinal mass with encasement of the right main pulmonary artery and the right sided bronchus intermedius/right lower lobe with secondary narrowing.. There was also by peripheral increased lung markings possibly consistent with metastatic disease. Multiple enlarging hypodense lesions in liver lesions were also seen. A follow- up CAT scan of the chest that was also done on 11/26/2020 showed essentially unchanged findings. At that point, the patient was seen again at the [facility] and the patient was given topotecan and the patient has already received one round of oral chemotherapy. He received Neulasta. He is presenting today to the burst department because of worsening shortness of breath over the past 1 week. The patient was having lower GI bleed with bright red blood per rectum. The patient started having lower GI bleed around 2-3 days ago and the patient was having several bouts on a daily basis. He arrived to the hospital and he stated count was 4 and his hemoglobin was at 5.7 with a white cell count of 2. Normal coagulation profile. Normal electrolytes. LFTs were normal.: 19 testing was negative. Chest x-ray showed a right infrahilar soft tissue density in the patient had increased interstitial markings bilaterally seen on a previous chest x-ray also. At this point in time, the patient is on 2 L about 2 by nasal cannula. The patient is sinus tachycardia with a heart rate in the 160-120 range. No hematemesis. No abdominal pain. Altered mental status. He already has received a unit of packed RBC. Platelets have been ordered. Another unit of packed RBC has been ordered. He was given a total of 1.5 L of normal saline in the emergency department. Patient was reevaluated today on 12/13/2020, remains in the ICU, he is on 2 L nasal cannula with O2 saturation 94%. Patient feels a bit short of breath. He received so far 3 units of packed RBCs and 1 unit of platelets. Continues to have pancytopenia with a WBC count of 1.9 hemoglobin of 6.3 and platelets are 27,000. Patient remains on IV fluid at 1 50 mL per hour in the form of 0.9 normal saline. His blood pressure is marginal. Hence I added antibiotics in the form of cefepime and vancomycin on this patient. Ulcers are pending. Patient is yet to be seen by oncology on consultation. Today I have recommended another unit of packed RBCs and another unit of platelets to be given since his hemoglobin remains low and platelets remain low. Chest x-ray showed minimal interstitial changes at the bases. Could be related to some component of inters titial edema or pneumonitis. Patient received significant amount of fluid since admission. But no antibiotics have been given, and I'm recommending cefepime and vancomycin to start empirically today. Electrolytes are normal renal profile is normal. Clinically the patient feels a bit better today compared to how he felt yesterday. Continues to have low back pain. Reevaluated today on 12/14/2020, remains in the ICU, on 6 L nasal cannula, slightly better as far as her hematologic profile, patient received a total of hemoglobin today is 8.7 and his platelets are 38,000. Patient is a bit more short of breath today, and chest x-ray is showing bilateral infiltrates suggestive of pneumonia, and the patient is already empirically on broad- spectrum antibiotics. Blood cultures are negative and urine culture is negative so far. Sputum cultures will be ordered. CBC count today is up to 2.3 h emoglobin 8.7 and left lites are normal renal profile is normal chest x-ray bilateral multifocal opacities noted in the lungs bilaterally. Reevaluated today on 12/15/2020, patient remains in the ICU, on 6 L nasal cannula with O2 sats of 96 5%. Remains on IV fluid at 0.9 normal saline 75 mL per hour. Patient seems to be quite comfortable, his chest x-ray continues show by basilar infiltrates, however bed back to his previous x-rays, and this abnormality in the bases especially in the right lower lobe has been noted even going back to June when his diagnosis of lung cancer was made. Patient did receive Lasix yesterday, remains on antibiotics in the form of cefepime. Also vancomycin. Patient will receive another dose of Lasix today. And his colon cancer screening was negative. Scan is coming up nicely up to 3.2 today, hemoglobin is holding at 9.2, however platelets remained low at 23,000, no active bleeding noted, hence no platelets transfusion as recommended by hematology on the case. Electrolytes and renal profile are normal. Reevaluated today on 12/16/2020, patient is basically about the same. Remains on 6 L nasal cannula, he is not in any distress, he is hemodynamically stable, his hemoglobin is responding well and his WBC count is responding well, however his platelets remain low at 17,000, no active bleeding at the patient remains on antibiotics empirically for presumptive pneumonia although the findings on the chest x-ray are probably related to his underlying small cell lung cancer. Pneumonia is not entirely ruled out. And I plan to continue his antibiotics accordingly. WBC count is 3.8 hemoglobin is 9.6 platelets are 17,000. Electrolytes are normal renal profile is normal Objective - Vital Signs Vital signs: Vital Signs Temp 97.9 F 12/16/20 12:00 Pulse 100 12/16/20 12:00 Resp 28 H 12/16/20 12:00 BP 93/56 12/16/20 12:00 Pulse Ox 90 L 12/16/20 12:00 Intake & Output 12/15/20 12/16/20 12/16/20 18:59 06:59 18:59 Intake Total 660 160 600 Output Total 2345 945 400 Balance -6055 -785 200 Weight 76.3 kg 76.3 kg Intake: IV 360 160 160 Cefepime 2 gm In Sodium 150 50 100 Chloride 0.9% 100 ml @ 25 mls/hr IVPB Q8HR NOELLE Rx# :[id number] Sodium Chloride 0.9% 1, 210 110 60 000 ml @ 10 mls/hr IV . Q24H NOELLE Rx#:[id number] Oral 300 440 Output: Urine 2345 945 400 Other: Voiding Method Indwelling Catheter Indwelling Catheter Indwelling Catheter # Bowel Movements 1 - Exam General: Revealed a 60-year-old white male in no distress. Derm: Areas of ecchymosis noted in both upper extremities. Head: Atraumatic, normocephalic. Eyes: PERRLA, EOMI, nonicteric. ENT: Nose and ears atraumatic, no thrush, no pharyngeal erythema Neck: No thyromegaly, no cervical lymphadenopathy, trachea midline, supple Mouth: Normal mucous membranes. Cardiovascular: Normal S1 and S2, no S3 gallop. Lungs: Minimal crackles at the bases. Abdominal: Soft nontender no megaly no rebound no guarding. Ext: No clubbing edema or cyanosis. Ecchymosis is noted in both arms Neuro: Alert and oriented 3 focal deficits. Psych: Normal mood, affect and normal mental status examination. - Labs CBC & Chem 7: 12/16/20 04:15 12/16/20 04:15 Labs: Abnormal Lab Results - Last 24 Hours (Table) 12/15/20 12/15/20 12/16/20 Range/Units 16:46 21:17 04:15 RBC 2.91 L (4.30-5.90) m/uL Hgb 9.6 L (13.0-17.5) gm/dL Hct 27.8 L (39.0-53.0) % RDW 16.3 H (11.5-15.5) % Plt Count 17 L* (150-450) k/uL Neutrophils # 0.9 L (1.3-7.7) k/uL Sodium (137-145) mmol/L Creatinine (0.66-1.25) mg/dL Glucose (74-99) mg/dL POC Glucose (mg/dL) 163 H 143 H (75-99) mg/dL Total Bilirubin (0.2-1.3) mg/dL Total Protein (6.3-8.2) g/dL Albumin (3.5-5.0) g/dL 12/16/20 12/16/20 Range/Units 04:15 11:11 RBC (4.30-5.90) m/uL Hgb (13.0-17.5) gm/dL Hct (39.0-53.0) % RDW (11.5-15.5) % Plt Count (150-450) k/uL Neutrophils # (1.3-7.7) k/uL Sodium 133 L (137-145) mmol/L Creatinine 0.47 L (0.66-1.25) mg/dL Glucose 111 H (74-99) mg/dL POC Glucose (mg/dL) 118 H (75-99) mg/dL Total Bilirubin 1.4 H (0.2-1.3) mg/dL Total Protein 5.6 L (6.3-8.2) g/dL Albumin 2.8 L (3.5-5.0) g/dL Microbiology - Last 24 Hours (Table) 12/13/20 08:30 Blood Culture - Preliminary Blood No Growth after 72 hours 12/13/20 08:45 Blood Culture - Preliminary Blood No Growth after 72 hours Assessment and Plan Assessment: Impression: Extensive stage primary small cell lung cancer with diffuse metastasis. Pancytopenia secondary to recent chemotherapy at the [facility]. Possible sepsis and bibasilar pneumonia, continue cefepime, cultures are so far nondiagnostic. Acute blood loss anemia, possible undergoing GI bleeding secondary to thrombocytopenia. Acute thrombocytopenia secondary to bone marrow suppression from systemic chemotherapy. History of underlying COPD Recommendation: Considering the patient's hemodynamic and pulmonary stability, I will transfer the patient out of the ICU to oncology. Continue present supportive care measures. Continue to monitor hemoglobin and platelets and transfuse accordingly. Continue antibiotics as ordered Prognosis remains relatively guarded. Long-term prognosis is poor. Time with Patient: Less than 30
[2020-12-16] MEDS: SODIUM CHLORIDE 0.9% 1,000 ML IV SCH (16:18)
[2020-12-16] MEDS ORDERED: FUROSEMIDE 10 MG/ML 4 ML VIAL IV STA (17:39)
--- NOTE | 2020-12-16 17:44 | P.PN ---
Subjective Progress Note Date: 12/16/20 (seen at 1130) Principal diagnosis: shortness of breath Patient is a 60-year-old male with a history of metastatic small cell lung cancer currently being treated at [facility] with oral Topotecan, A flutter on ASA, systolic cardiomyopathy with EF 40-45% , Who presented to the hospital secondary to bright red blood per rectum and worsening shortness of breath 1 week. On arrival to son have hemoglobin of 5.7, platelet count of 4, and weight blood cell count of 2. He was started on IV fluids. He underwent a chest x-ray which showed a right infrahilar soft tissue density with increased interstitial markings seen bilaterally. COVID-19 testing was negative. He was given 2 units of packed red blood cells and 1 unit of platelets. He was admitted to the ICU. Patient was admitted to the ICU. Pulmonary critical care with consulted. Due to his pancytopenia and marginal blood pressures as well as possible change in chest x-ray he was started on Vanco and cefepime on 12/13. He received an additional unit of platelets and 2 additional units of packed red blood cells on 12/13. He received an additional dose of that she/CSF Echo 11/26- EF 40-45% Chest x-ray-no significant interval change in extensive interstitial lung disease. Seen and examined at bedside. He feels more short of breath today than yesterday. He has reached out to [facility] about his platelets and they were going to call here for labs. No chest pain, stool is brown, no abdominal pain. General: non toxic, no distress, appears at stated age Derm: warm, dry Head: atraumatic, normocephalic, symmetric Eyes: EOMI, no lid lag, anicteric sclera Mouth: no lip lesion, mucus membranes moist Cardiovascular: S1S2 reg, no murmur, positive posterior tibial pulse bilateral, Lungs: Course bsbilateral, no rhonchi, no rales , no accessory muscle use Abdominal: soft, nontender to palpation, no guarding, no appreciable organomegaly Ext: no gross muscle atrophy, no edema, no contractures Neuro: CN II-XI grossly intact, no focal neuro deficits Psych: Alert, oriented, appropriate affect Bright red blood per rectum Acute blood loss anemia - off ASA - Protonix - Likely due to severe thrombocytopenia - follow CBC and per Oncology recs if recurrent bleeding then transfused for plt less than 40 and consider DDAVP Metastatic small lung cancer Pancytopenia due to above - Oncology recs appreciated - on G-CSF - Follows at [facility] COPD without exacerbation - started on ABX per pulmonary: Cefepime and Vanco Acute exacerbation of systolic congestive heart failure with ejection fraction 40-45%. - Laisx on 12/15, repeat today - on metoprolol - no chronically on ACEI Opiate dependency due to pain - MS contin DVT prophylaxis: SCDs Discussed with: patient and family Anticipated discharge: in 2-[address]: home A total of 35 minutes was spent on the care of this complex patient more than 50% of the time was spent in counseling and care coordination. Objective - Vital Signs Vital signs: Vital Signs Temp 98.4 F 12/16/20 04:00 Pulse 104 H 12/16/20 07:00 Resp 26 H 12/16/20 07:00 BP 95/60 12/16/20 07:00 Pulse Ox 87 L 12/16/20 07:00 Intake & Output 12/15/20 12/16/20 12/16/20 18:59 06:59 18:59 Intake Total 660 160 Output Total 2345 945 Balance -1685 -785 Weight 76.3 kg Intake: IV 360 160 Cefepime 2 gm In Sodium 150 50 Chloride 0.9% 100 ml @ 25 mls/hr IVPB Q8HR NOELLE Rx# :[id number] Sodium Chloride 0.9% 1, 210 110 000 ml @ 50 mls/hr IV . Q20H NOELLE Rx#:[id number] Oral 300 Output: Urine 2345 945 Other: Voiding Method Indwelling Catheter Indwelling Catheter # Bowel Movements 1 - Labs CBC & Chem 7: 12/16/20 04:15 12/16/20 04:15 Labs: Abnormal Lab Results - Last 24 Hours (Table) 12/15/20 12/15/20 12/15/20 Range/Units 11:28 16:46 21:17 RBC (4.30-5.90) m/uL Hgb (13.0-17.5) gm/dL Hct (39.0-53.0) % RDW (11.5-15.5) % Plt Count (150-450) k/uL Neutrophils # (1.3-7.7) k/uL Sodium (137-145) mmol/L Creatinine (0.66-1.25) mg/dL Glucose (74-99) mg/dL POC Glucose (mg/dL) 153 H 163 H 143 H (75-99) mg/dL Total Bilirubin (0.2-1.3) mg/dL Total Protein (6.3-8.2) g/dL Albumin (3.5-5.0) g/dL 12/16/20 12/16/20 Range/Units 04:15 04:15 RBC 2.91 L (4.30-5.90) m/uL Hgb 9.6 L (13.0-17.5) gm/dL Hct 27.8 L (39.0-53.0) % RDW 16.3 H (11.5-15.5) % Plt Count 17 L* (150-450) k/uL Neutrophils # 0.9 L (1.3-7.7) k/uL Sodium 133 L (137-145) mmol/L Creatinine 0.47 L (0.66-1.25) mg/dL Glucose 111 H (74-99) mg/dL POC Glucose (mg/dL) (75-99) mg/dL Total Bilirubin 1.4 H (0.2-1.3) mg/dL Total Protein 5.6 L (6.3-8.2) g/dL Albumin 2.8 L (3.5-5.0) g/dL Microbiology - Last 24 Hours (Table) 12/13/20 08:30 Blood Culture - Preliminary Blood No Growth after 48 hours 12/13/20 08:45 Blood Culture - Preliminary Blood No Growth after 48 hours
[2020-12-16] MEDS: FILGRASTIM-SNDZ 480 MCG/0.8 ML SYRINGE SQ SCH (18:46)
[2020-12-16] MEDS: traZODone HCL 50 MG TAB PO SCH (20:03)
[2020-12-17 04:38] LABS: Anisocytosis Slight; Basophils % (A) 0 %; Eosinophils % (A) 1 %; HCT 27.3 % (39.0-53.0); HGB 9.3 gm/dL (13.0-17.5); Lymphocytes # (A) 1.9 k/uL (1.0-4.8); Lymphocytes % (A) 58 %; MCH 33.1 pg (25.0-35.0); MCHC 33.9 g/dL (31.0-37.0); MCV 97.6 fL (80.0-100.0); Macrocytosis Slight; Mean Platelet Volume 9.5; Monocytes # (A) 0.1 k/uL (0-1.0); Monocytes % (A) 3 %; Neutrophils # (A) 1.1 k/uL (1.3-7.7); Neutrophils % (A) 34 %; WBC 3.2 k/uL (3.8-10.6)
[2020-12-17 04:43] LABS: Platelet Count 11 k/uL (150-450)
[2020-12-17 05:00] LABS: ALT 38 U/L (4-49); AST 33 U/L (17-59); African American GFR (CKD) >90 (>60 ml/min/1.73 sqM); Albumin 2.6 g/dL (3.5-5.0); Alkaline Phosphatase 112 U/L (38-126); Anion Gap 5 mmol/L; Blood Urea Nitrogen 12 mg/dL (9-20); Calcium 8.3 mg/dL (8.4-10.2); Carbon Dioxide 31 mmol/L (22-30); Chloride 97 mmol/L (98-107); Glucose 115 mg/dL (74-99); Non-African American GFR(CKD) >90 (>60 ml/min/1.73 sqM); Potassium 3.8 mmol/L (3.5-5.1); Sodium 133 mmol/L (137-145); Total Bilirubin 1.1 mg/dL (0.2-1.3); Total Protein 5.4 g/dL (6.3-8.2)
[2020-12-17] MEDS ORDERED: POTASSIUM CHLORIDE ER 20 MEQ TAB.ER PO SCH (06:00)
[2020-12-17 07:15] LABS: Glucose,Whole Blood 127 mg/dL (75-99)
[2020-12-17] MEDS: CEFEPIME 2 GM in SODIUM CHLORIDE 0.9% 100 ML IVPB SCH ×3 (08:12→22:12)
[2020-12-17] MEDS: PANTOPRAZOLE 40 MG/10 ML VIAL IVP SCH (08:13)
[2020-12-17] MEDS: GABAPENTIN 300 MG CAP PO SCH ×3 (08:13→20:40)
[2020-12-17] MEDS: METOPROLOL SUCCINATE (ER) 25 MG TAB.ER.24H PO SCH (08:13)
[2020-12-17] MEDS: MORPHINE SULFATE ER 60 MG TABLET PO SCH ×2 (08:13→20:40)
--- NOTE | 2020-12-17 09:07 | XR ---
EXAMINATION TYPE: XR chest 1V portable DATE OF EXAM: 12/17/2020 Comparison: 12/16/2020 Clinical History: 60-year-old male SOB Findings: Heart normal size. Aorta and pulmonary vasculature within normal limits. Diffuse interstitial changes persist with continued mid and lower lung airspace opacity. Impression: Continued diffuse interstitial changes as well as confluent mid and lower lung airspace disease.
--- NOTE | 2020-12-17 09:26 | P.PN ---
Subjective Progress Note Date: 12/16/20 The patient reported some increased shortness of breath with exertion when he got up to go to the bathroom today. He denies any significant cough. No fever or chills. He has not had any obvious bleeding. Objective - Vital Signs Vital signs: Vital Signs Temp 97.9 F 12/16/20 12:00 Pulse 100 12/16/20 12:00 Resp 28 H 12/16/20 12:00 BP 93/56 12/16/20 12:00 Pulse Ox 94 L 12/16/20 16:00 Intake & Output 12/15/20 12/16/20 12/16/20 18:59 06:59 18:59 Intake Total 660 160 610 Output Total 2345 945 400 Balance -1685 -785 210 Weight 76.3 kg 76.3 kg Intake: IV 360 160 170 Cefepime 2 gm In Sodium 150 50 100 Chloride 0.9% 100 ml @ 25 mls/hr IVPB Q8HR NOELLE Rx# :[id number] Sodium Chloride 0.9% 1, 210 110 70 000 ml @ 10 mls/hr IV . Q24H NOELLE Rx#:[id number] Oral 300 440 Output: Urine 2345 945 400 Other: Voiding Method Indwelling Catheter Indwelling Catheter Indwelling Catheter # Bowel Movements 1 - Constitutional General appearance: Present: mild distress - EENT Eyes: Present: EOMI ENT: Present: hearing grossly normal, normal oropharynx - Respiratory Respiratory: bilateral: diminished - Cardiovascular Rhythm: regular Heart sounds: normal: S1, S2 - Gastrointestinal General gastrointestinal: Present: normal bowel sounds, soft - Integumentary Integumentary: Present: normal - Neurologic Neurologic: Present: CNII-XII intact - Musculoskeletal Musculoskeletal: Present: generalized weakness, strength equal bilaterally - Psychiatric Psychiatric: Present: A&O x's 3, appropriate affect - Labs CBC & Chem 7: 12/17/20 03:39 12/17/20 03:39 Labs: Abnormal Lab Results - Last 24 Hours (Table) 12/15/20 12/15/20 12/16/20 Range/Units 16:46 21:17 04:15 RBC 2.91 L (4.30-5.90) m/uL Hgb 9.6 L (13.0-17.5) gm/dL Hct 27.8 L (39.0-53.0) % RDW 16.3 H (11.5-15.5) % Plt Count 17 L* (150-450) k/uL Neutrophils # 0.9 L (1.3-7.7) k/uL Sodium (137-145) mmol/L Creatinine (0.66-1.25) mg/dL Glucose (74-99) mg/dL POC Glucose (mg/dL) 163 H 143 H (75-99) mg/dL Total Bilirubin (0.2-1.3) mg/dL Total Protein (6.3-8.2) g/dL Albumin (3.5-5.0) g/dL 12/16/20 12/16/20 Range/Units 04:15 11:11 RBC (4.30-5.90) m/uL Hgb (13.0-17.5) gm/dL Hct (39.0-53.0) % RDW (11.5-15.5) % Plt Count (150-450) k/uL Neutrophils # (1.3-7.7) k/uL Sodium 133 L (137-145) mmol/L Creatinine 0.47 L (0.66-1.25) mg/dL Glucose 111 H (74-99) mg/dL POC Glucose (mg/dL) 118 H (75-99) mg/dL Total Bilirubin 1.4 H (0.2-1.3) mg/dL Total Protein 5.6 L (6.3-8.2) g/dL Albumin 2.8 L (3.5-5.0) g/dL Microbiology - Last 24 Hours (Table) 12/16/20 07:15 Sputum Culture - Preliminary Sputum 12/13/20 08:30 Blood Culture - Preliminary Blood No Growth after 72 hours 12/13/20 08:45 Blood Culture - Preliminary Blood No Growth after 72 hours Assessment and Plan (1) Pancytopenia due to antineoplastic chemotherapy Narrative/Plan: Hemoglobin is stable at 9.6. WBC was improved to 3.8 and ANC to 900. PlateletCounts were correct 17. - Given dictated count greater than 10,000, and no obvious bleeding with stable hemoglobin, platelet transfusion was not felt to be indicated. Continue to monitor, and transfuse to keep platelets greater than 10,000 and hemoglobin greater than 7. In case of any active bleeding transfuse for platelets less than 40,000. - Continue G-CSF. WBC/ANC slowly improving Current Visit: Yes Status: Acute Code(s): D61.810 - ANTINEOPLASTIC CHEMOTHERAPY INDUCED PANCYTOPENIA; T45.1X5A - ADVERSE EFFECT OF ANTINEOPLASTIC AND IMMUNOSUP DRUGS, INIT SNOMED Code(s): 027060159924470 (2) GI bleed Narrative/Plan: Given stability of hemoglobin, there does not appear to be any active bleeding. It would be reasonable to consider a GI workup at some point look for a source of bleed. However the patient is not a good candidate for the same at this time because of low platelets, as well as respiratory status. Therefore it would be reasonable to hold off, and performance when he is more stable, unless there is any evidence of recurrent active bleeding Current Visit: Yes Status: Acute Code(s): K92.2 - GASTROINTESTINAL HEMORRHAGE, UNSPECIFIED SNOMED Code(s): 31708086 (3) Small cell lung cancer, right lower lobe Narrative/Plan: Treatment on hold until acute condition resolves. Current Visit: Yes Status: Acute Code(s): C34.31 - MALIGNANT NEOPLASM OF LOWER LOBE, RIGHT BRONCHUS OR LUNG SNOMED Code(s): 818006202
--- NOTE | 2020-12-17 11:03 | P.PN ---
Subjective Progress Note Date: 12/17/20 Principal diagnosis: Pancytopenia, history of small cell lung cancer 60-year-old male patient with metastatic small cell lung cancer who is currently undergoing oral chemotherapy with topotecan a total of 3.5 mg 5 days on 21 days off. This was given to him through the [facility]. I diagnosis patient having metastatic small cell lung cancer back in June 2020. At that time, the patient he started having worsening shortness of breath and he was seen by his primary care physician he was diagnosed having a pneumonia of the right lower lobe. Following that he was given antibiotics and steroids without much help. Upon follow-up, he was referred for a CAT scan of the chest and the CAT scan of the chest was completed at [facility] on 06/07/2020. I had the chance in reviewing the CAT scan images and the patient was found to have some mild to moderate emphysematous changes in the upper lobes bilaterally. There was however a right hilar mass/masslike consolidation and mediastinal lymphadenopathy involving the right paratracheal and subcarinal lesion and there was an abnormal right tracheobronchial masslike lymph node measuring 2.7 x 2.1 cm in size. There was also paratracheal lymph nodes and these were extending to the superior mediastinum. There were also smaller hepatic lesions which obviously raises the concern for malignancy. For that reason, the patient was referred to me with a concern of lung cancer. Clinically, the patient had some exertional dyspnea and shortness of breath. He has no hemoptysis. He has no weight loss. He has been sweating at nighttime. No fever. No chills. No change in his appetite. No change in voice. I performed a bronchoscopy on this patient and diagnosis small cell lung cancer was established. I performed a bronchoscopy and the diagnosis was consistent with small cell lung cancer. The patient has had some subsequent MRI of the brain that came back negative for metastases. His PET scan showed advanced stage right lung neoplasm with abnormal thoracic and supraclavicular lymphadenopathy and there was hepatic and osseous involvement. The patient had also suspicious subcentimeter focus in the region of the pancreatic tail and possible involvement of the left pubic bone, subtle sclerosis of the level of the left pubic bone in addition to proximal right femoral lesion at the level of the intertrochanteric area and the patient also had some mild height loss at the level of T12 vertebra with mild hypermetabolic activity. The patient was referred for oncology. He did not have a good encounter with Dr. REID and subsequently ended up going to [facility]. He was hospitalized immediately at [facility] and he was started on systemic chemotherapy and he has been also started on immunotherapy. I'm not sure of the exact regimen however my suspicion is that the patient is receiving a combinat ion of carboplatinum, [employer] MANAGER-16 and Tecentric. Follow-up CAT scan of the chest that was done on 11/12/2020 showed a large right hilar and mediastinal mass with encasement of the right main pulmonary artery and the right sided bronchus intermedius/right lower lobe with secondary narrowing.. There was also by peripheral increased lung markings possibly consistent with metastatic disease. Multiple enlarging hypodense lesions in liver lesions were also seen. A follow- up CAT scan of the chest that was also done on 11/26/2020 showed essentially unchanged findings. At that point, the patient was seen again at the [facility] and the patient was given topotecan and the patient has already received one round of oral chemotherapy. He received Neulasta. He is presenting today to the burst department because of worsening shortness of breath over the past 1 week. The patient was having lower GI bleed with bright red blood per rectum. The patient started having lower GI bleed around 2-3 days ago and the patient was having several bouts on a daily basis. He arrived to the hospital and he stated count was 4 and his hemoglobin was at 5.7 with a white cell count of 2. Normal coagulation profile. Normal electrolytes. LFTs were normal.: 19 testing was negative. Chest x-ray showed a right infrahilar soft tissue density in the patient had increased interstitial markings bilaterally seen on a previous chest x-ray also. At this point in time, the patient is on 2 L about 2 by nasal cannula. The patient is sinus tachycardia with a heart rate in the 160-120 range. No hematemesis. No abdominal pain. Altered mental status. He already has received a unit of packed RBC. Platelets have been ordered. Another unit of packed RBC has been ordered. He was given a total of 1.5 L of normal saline in the emergency department. Patient was reevaluated today on 12/13/2020, remains in the ICU, he is on 2 L nasal cannula with O2 saturation 94%. Patient feels a bit short of breath. He received so far 3 units of packed RBCs and 1 unit of platelets. Continues to have pancytopenia with a WBC count of 1.9 hemoglobin of 6.3 and platelets are 27,000. Patient remains on IV fluid at 1 50 mL per hour in the form of 0.9 normal saline. His blood pressure is marginal. Hence I added antibiotics in the form of cefepime and vancomycin on this patient. Ulcers are pending. Patient is yet to be seen by oncology on consultation. Today I have recommended another unit of packed RBCs and another unit of platelets to be given since his hemoglobin remains low and platelets remain low. Chest x-ray showed minimal interstitial changes at the bases. Could be related to some component of interstitial edema or pneumonitis. Patient received significant amount of fluid since admission. But no antibiotics have been given, and I'm recommending cefepime and vancomycin to start empirically today. Electrolytes are normal renal profile is normal. Clinically the patient feels a bit better today compared to how he felt yesterday. Continues to have low back pain. Reevaluated today on 12/14/2020, remains in the ICU, on 6 L nasal cannula, slightly better as far as her hematologic profile, patient received a total of hemoglobin today is 8.7 and his platelets are 38,000. Patient is a bit more short of breath today, and chest x-ray is showing bilateral infiltrates suggestive of pneumonia, and the patient is already empirically on broad- spectrum antibiotics. Blood cultures are negative and urine culture is negative so far. Sputum cultures will be ordered. CBC count today is up to 2.3 hemoglobin 8.7 and left lites are normal renal profile is normal chest x-ray bilateral multifocal opacities noted in the lungs bilaterally. Reevaluated today on 12/15/2020, patient remains in the ICU, on 6 L nasal cannula with O2 sats of 96 5%. Remains on IV fluid at 0.9 normal saline 75 mL per hour. Patient seems to be quite comfortable, his chest x-ray continues show by basilar infiltrates, however bed back to his previous x-rays, and this abnormality in the bases especially in the right lower lobe has been noted even going back to June when his diagnosis of lung cancer was made. Patient did receive Lasix yesterday, remains on antibiotics in the form of cefepime. Also vancomycin. Patient will receive another dose of Lasix today. And his colon cancer screening was negative. Scan is coming up nicely up to 3.2 today, hemoglobin is holding at 9.2, however platelets remained low at 23,000, no active bleeding noted, hence no platelets transfusion as recommended by hematology on the case. Electrolytes and renal profile are normal. Reevaluated today on 12/16/2020, patient is basically about the same. Remains on 6 L nasal cannula, he is not in any distress, he is hemodynamically stable, his hemoglobin is responding well and his WBC count is responding well, however his platelets remain low at 17,000, no active bleeding at the patient remains on antibiotics empirically for presumptive pneumonia although the findings on the chest x-ray are probably related to his underlying small cell lung cancer. Pneumonia is not entirely ruled out. And I plan to continue his antibiotics accordingly. WBC count is 3.8 hemoglobin is 9.6 platelets are 17,000. Electrolytes are normal renal profile is normal The patient is seen today 12/17/2020 in follow-up in the intensive care unit. He is currently sitting up in bed. Awake and alert in no acute distress. He still having some dyspnea with conversation, dyspnea with minimal exertion. He is currently on 8 L high flow nasal cannula with O2 saturation of 93%. Chest x- ray continues to show diffuse interstitial changes as well as confluent mid and lower lobe airspace disease. He is feeling a bit better today compared to yesterday. He is slightly tachycardic, no fever or chills. He has 0.9 normal saline at 10 MLS per hour. He is in a -2.4 L fluid balance. He is status post 4 units of packed red blood cells and 2 units of platelets this admission. His current hemoglobin is 9.3. Platelet count 11,000. White count 3.2. Sodium 133. Potassium 3.8. Bicarb 31. Creatinine 0.48. Glucose 127. Blood cultures reveal no growth. Urine culture revealed no growth. Sputum culture pending. He remains on cefepime. Continued on Zarxio. Objective - Vital Signs Vital signs: Vital Signs Temp 98.7 F 12/17/20 08:00 Pulse 123 H 12/17/20 08:00 Resp 28 H 12/17/20 08:00 BP 102/58 12/17/20 08:00 Pulse Ox 93 L 12/17/20 08:00 Intake & Output 12/16/20 12/17/20 12/17/20 18:59 06:59 18:59 Intake Total 1210 510 Output Total 1900 1075 Balance -690 -565 Weight 76.3 kg 76.5 kg Intake: IV 330 110 Cefepime 2 gm In Sodium 200 Chloride 0.9% 100 ml @ 25 mls/hr IVPB Q8HR [facility] Rx# :[id number] Sodium Chloride 0.9% 1, 130 110 000 ml @ 10 mls/hr IV . Q24H [facility] Rx#:[id number] Oral 880 400 Output: Urine 1900 1075 Other: Voiding Method Indwelling Catheter Indwelling Catheter Indwelling Catheter - Exam GENERAL EXAM: Alert, pleasant 60-year-old gentleman, on 8 L high flow nasal cannula him a fairly comfortable in no apparent distress. HEAD: Normocephalic. EYES: Normal reaction of pupils, equal size. NOSE: Clear with pink turbinates. THROAT: No erythema or exudates. NECK: No masses, no JVD. CHEST: No chest wall deformity. LUNGS: Equal air entry with crackles in the bilateral bases. CVS: S1 and S2 normal with no audible murmur, regular rhythm. ABDOMEN: No hepatosplenomegaly, normal bowel sounds, no guarding or rigidity. SPINE: No scoliosis or deformity SKIN: No rashes CENTRAL NERVOUS SYSTEM: No focal deficits, tone is normal in all 4 extremities. EXTREMITIES: There is no peripheral edema. No clubbing, no cyanosis. Peripheral pulses are intact. - Labs CBC & Chem 7: 12/17/20 03:39 12/17/20 03:39 Labs: Abnormal Lab Results - Last 24 Hours (Table) 12/16/20 12/17/20 12/17/20 Range/Units 11:11 03:39 03:39 WBC 3.2 L (3.8-10.6) k/uL RBC 2.80 L (4.30-5.90) m/uL Hgb 9.3 L (13.0-17.5) gm/dL Hct 27.3 L (39.0-53.0) % RDW 16.0 H (11.5-15.5) % Plt Count 11 L* (150-450) k/uL Neutrophils # 1.1 L (1.3-7.7) k/uL Sodium 133 L (137-145) mmol/L Chloride 97 L (98-107) mmol/L Carbon Dioxide 31 H (22-30) mmol/L Creatinine 0.48 L (0.66-1.25) mg/dL Glucose 115 H (74-99) mg/dL POC Glucose (mg/dL) 118 H (75-99) mg/dL Calcium 8.3 L (8.4-10.2) mg/dL Total Protein 5.4 L (6.3-8.2) g/dL Albumin 2.6 L (3.5-5.0) g/dL 12/17/20 Range/Units 07:14 WBC (3.8-10.6) k/uL RBC (4.30-5.90) m/uL Hgb (13.0-17.5) gm/dL Hct (39.0-53.0) % RDW (11.5-15.5) % Plt Count (150-450) k/uL Neutrophils # (1.3-7.7) k/uL Sodium (137-145) mmol/L Chloride (98-107) mmol/L Carbon Dioxide (22-30) mmol/L Creatinine (0.66-1.25) mg/dL Glucose (74-99) mg/dL POC Glucose (mg/dL) 127 H (75-99) mg/dL Calcium (8.4-10.2) mg/dL Total Protein (6.3-8.2) g/dL Albumin (3.5-5.0) g/dL Microbiology - Last 24 Hours (Table) 12/16/20 07:15 Gram Stain - Preliminary Sputum Sputum Culture - Preliminary 12/13/20 08:30 Blood Culture - Preliminary Blood No Growth after 72 hours 12/13/20 08:45 Blood Culture - Preliminary Blood No Growth after 72 hours Assessment and Plan Assessment: 1 Extensive stage primary small cell lung cancer with diffuse metastasis. 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 3 Possible sepsis and bibasilar pneumonia, continue cefepime, cultures are so far nondiagnostic. 4 Acute blood loss anemia, possible undergoing GI bleeding secondary to thrombocytopenia. 5 Acute thrombocytopenia secondary to bone marrow suppression from systemic chemotherapy. 6 History of underlying COPD Plan: The patient was seen and evaluated by Dr. Bryant Chest x-ray and labs reviewed Give additional platelets today The patient verbalizes he does not want intubation or resuscitation DO NOT RESUSCITATE/DO NOT INTUBATE CODE STATUS Titrate the FiO2 as tolerated Transferred to oncology once a bed is available We will continue to follow and make further recommendations based on his clinical status I, the cosigning physician, performed a history & physical examination of the patient. Lungs sounds with crackles in the bilateral bases. Maintaining good O2 saturations in the 90s on 8 L high flow nasal cannula. I discussed the assessment and plan of care with my nurse practitioner, Erum Hassan. I attest to the above note as dictated by her.
--- NOTE | 2020-12-17 12:30 | P.PN ---
Subjective Progress Note Date: 12/17/20 Principal diagnosis: Chemo induced pancytopenia, metastatic SCLC In f/u pt cont to have SOB at rest, cough is harsh, no hemoptysis, denies any bleeding, he does have severe RUE bruising attributed to needle sticks. He is feeling frustrated with his diagnosis. Objective - Vital Signs Vital signs: Vital Signs Temp 98.7 F 12/17/20 08:00 Pulse 123 H 12/17/20 08:00 Resp 28 H 12/17/20 08:00 BP 102/58 12/17/20 08:00 Pulse Ox 93 L 12/17/20 08:00 Intake & Output 12/16/20 12/17/20 12/17/20 18:59 06:59 18:59 Intake Total 1210 510 Output Total 1900 1075 Balance -690 -565 Weight 76.3 kg 76.5 kg Intake: IV 330 110 Cefepime 2 gm In Sodium 200 Chloride 0.9% 100 ml @ 25 mls/hr IVPB Q8HR [facility] Rx# :[id number] Sodium Chloride 0.9% 1, 130 110 000 ml @ 10 mls/hr IV . Q24H [facility] Rx#:[id number] Oral 880 400 Output: Urine 1900 1075 Other: Voiding Method Indwelling Catheter Indwelling Catheter Indwelling Catheter - Constitutional General appearance: Present: cooperative, mild distress, thin - EENT EENT Comment(s): dry mucus membranes, no wet purpura or blood noted in mouth or nose Eyes: Present: anicteric sclerae, EOMI ENT: Present: hearing grossly normal - Respiratory Details: resp rate is increased, shallow breaths, cough is dry and harsh - Cardiovascular Details: tachycardia on telemetry - Neurologic Neurologic: Present: CNII-XII intact (grossly) - Musculoskeletal Musculoskeletal: Present: strength equal bilaterally - Psychiatric Psychiatric: Present: A&O x's 3, appropriate affect, intact judgment & insight - Allied health notes Allied health notes reviewed: case management - Labs CBC & Chem 7: 12/17/20 03:39 12/17/20 03:39 Labs: Abnormal Lab Results - Last 24 Hours (Table) 12/17/20 12/17/20 12/17/20 Range/Units 03:39 03:39 07:14 WBC 3.2 L (3.8-10.6) k/uL RBC 2.80 L (4.30-5.90) m/uL Hgb 9.3 L (13.0-17.5) gm/dL Hct 27.3 L (39.0-53.0) % RDW 16.0 H (11.5-15.5) % Plt Count 11 L* (150-450) k/uL Neutrophils # 1.1 L (1.3-7.7) k/uL Sodium 133 L (137-145) mmol/L Chloride 97 L (98-107) mmol/L Carbon Dioxide 31 H (22-30) mmol/L Creatinine 0.48 L (0.66-1.25) mg/dL Glucose 115 H (74-99) mg/dL POC Glucose (mg/dL) 127 H (75-99) mg/dL Calcium 8.3 L (8.4-10.2) mg/dL Total Protein 5.4 L (6.3-8.2) g/dL Albumin 2.6 L (3.5-5.0) g/dL Microbiology - Last 24 Hours (Table) 12/13/20 08:45 Blood Culture - Preliminary Blood No Growth after 96 hours 12/13/20 08:30 Blood Culture - Preliminary Blood No Growth after 96 hours 12/16/20 07:15 Gram Stain - Preliminary Sputum Sputum Culture - Preliminary - Imaging and Cardiology Chest x-ray: report reviewed Assessment and Plan (1) Pancytopenia due to antineoplastic chemotherapy Narrative/Plan: Oral topotecan stopped. Hgb stable today Cont GCSF for final dose today plt 11,000, a unit of SDP was ordered Current Visit: Yes Status: Acute Priority: High Code(s): D61.810 - ANTINEOPLASTIC CHEMOTHERAPY INDUCED PANCYTOPENIA; T45.1X5A - ADVERSE EFFECT OF ANTINEOPLASTIC AND IMMUNOSUP DRUGS, INIT SNOMED Code(s): 004843493100630 (2) Small cell lung cancer, right lower lobe Narrative/Plan: Unfortunately pt did not have a response to standard of care 1st line chemo, given a [facility]. He was then started on oral topotecan with severe drop in counts. His PS has declined, his SOB, weakness and poor appetite persist and progress. Case was reviewed with Pulmonary who reviewed chest images and suspect lymphangetic spread of disease. The above was reviewed with pt. At this time there no current treatment options that would provide greater benefit then risk. His presentation is most suggestive of progressive malignancy. Pt understands that he is terminal. We discussed life expectancy as <3 mo with many unknowns that could be the cause of pt demise at any time. Pt wants to go home. We discussed hospice at home, purpose to keep pt at home and comfortable with his family. He agrees with this course of action. Discussed case with [employer] who will coordinate meeting with family who is coming in today. Current Visit: Yes Status: Acute Priority: High Code(s): C34.31 - MALIGNANT NEOPLASM OF LOWER LOBE, RIGHT BRONCHUS OR LUNG SNOMED Code(s): 151517331 Time with Patient: Greater than 30
[2020-12-17] MEDS: SODIUM CHLORIDE 0.9% 1,000 ML IV SCH (14:09)
[2020-12-17] MEDS: guaiFENesin-DM 100-10MG/5ML 10 ML CUP PO PRN ×2 (15:09→20:41)
[2020-12-17] MEDS: FILGRASTIM-SNDZ 480 MCG/0.8 ML SYRINGE SQ SCH (17:49)
--- NOTE | 2020-12-17 18:14 | P.PN ---
Subjective Progress Note Date: 12/17/20 (quintin charting seen at 1306) Principal diagnosis: shortness of breath Patient is a 60-year-old male with a history of metastatic small cell lung cancer currently being treated at [facility] with oral Topotecan, A flutter on ASA, systolic cardiomyopathy with EF 40-45% , Who presented to the hospital secondary to bright red blood per rectum and worsening shortness of breath 1 week. On arrival to son have hemoglobin of 5.7, platelet count of 4, and weight blood cell count of 2. He was started on IV fluids. He underwent a chest x-ray which showed a right infrahilar soft tissue density with increased interstitial markings seen bilaterally. COVID-19 testing was negative. He was given 2 units of packed red blood cells and 1 unit of platelets. He was a dmitted to the ICU. Patient was admitted to the ICU. Pulmonary critical care with consulted. Due to his pancytopenia and marginal blood pressures as well as possible change in chest x-ray he was started on Vanco and cefepime on 12/13. He received an additional unit of platelets and 2 additional units of packed red blood cells on 12/13. He received an additional dose of plt on 12/17. Pulmonary felt that his CXR was consistent with pulmonary carcinomatosis, oncology stated prognosis of less than 6 months. Echo 11/26- EF 40-45% Chest x-ray-no significant interval change in extensive interstitial lung disease. Seen and examined at bedside. He feels fine today. No pain. Multiple family members at bedside. I attempted to answer questions, however they have specific questions about further potential treatment options was admitted following [facility]. I explained that currently his is not in a state where he would likely tolerate chemotherapy. General: non toxic, no distress, appears at stated age Derm: warm, dry Head: atraumatic, normocephalic, symmetric Eyes: EOMI, no lid lag, anicteric sclera Mouth: no lip lesion, mucus membranes moist Cardiovascular: S1S2 reg, no murmur, positive posterior tibial pulse bilateral, Lungs: Course bsbilateral, no rhonchi, no rales , no accessory muscle use Ext: no gross muscle atrophy, no edema, no contractures Neuro: CN II-XI grossly intact, no focal neuro deficits Psych: Alert, oriented, appropriate affect Bright red blood per rectum Acute blood loss anemia - off ASA - Protonix - Likely due to severe thrombocytopenia - follow CBC and per Oncology recs if recurrent bleeding then transfused for plt less than 40 and consider DDAVP Metastatic small lung cancer, carcinomatous Pancytopenia due to above - Oncology recs appreciated - on G-CSF - Follows at [facility] - consider hospice but want to make sure all avenues of potential treatment have been exhausted. COPD without exacerbation - started on ABX per pulmonary: Cefepime and Vanco Acute exacerbation of systolic congestive heart failure with ejection fraction 40-45%. - Laisx on 12/15, repeat today - on metoprolol - no chronically on ACEI Opiate dependency due to pain - MS contin DVT prophylaxis: SCDs Discussed with: patient and family Anticipated discharge: undetermined Anticipated discharge place: home A total of 35 minutes was spent on the care of this complex patient more than 50% of the time was spent in counseling and care coordination. Active Medications Filgrastim-Sndz (Filgrastim-Sndz 480 Mcg/0.8 Ml Syringe) 480 mcg SQ DAILY@1800 [facility] Last Admin: 12/17/20 17:49 Dose: 480 mcg Documented by: Gabapentin (Gabapentin 300 Mg Cap) 300 mg PO BID@0900,1500 [facility] Last Admin: 12/17/20 15:09 Dose: 300 mg Documented by: Gabapentin (Gabapentin 300 Mg Cap) 600 mg PO HS [facility] Last Admin: 12/16/20 20:03 Dose: 600 mg Documented by: Guaifenesin/Dextromethorphan (Guaifenesin-Dm 100-10mg/5ml 10 Ml Cup) 10 ml PO Q6HR PRN PRN Reason: Cough Last Admin: 12/17/20 15:09 Dose: 10 ml Documented by: Sodium Chloride (Saline 0.9%) 1,000 mls @ 10 mls/hr IV .Q24H [facility] Last Admin: 12/17/20 14:09 Dose: Not Given Documented by: Cefepime HCl 2 gm/ Sodium (Chloride) 100 mls @ 25 mls/hr IVPB Q8HR [facility] Last Admin: 12/17/20 15:35 Dose: 25 mls/hr Documented by: Metoprolol Succinate (Metoprolol Succinate (Er) 25 Mg Tab.Er.24h) 25 mg PO DAILY [facility] Last Admin: 12/17/20 08:13 Dose: 25 mg Documented by: Miscellaneous Information (Potassium Replacement Protocol 1 Each Misc) 1 each MISCELLANE DAILY PRN; Protocol PRN Reason: Per Protocol Morphine Sulfate (Morphine Sulfate Er 60 Mg Tablet) 60 mg PO Q12H [facility]; Protocol Last Admin: 12/17/20 08:13 Dose: 60 mg Documented by: Naloxone HCl (Naloxone 0.4 Mg/Ml 1 Ml Vial) 0.2 mg IV Q2M PRN PRN Reason: Opioid Reversal Non-Formulary Medication (Hydrocodone Bit/Homatrop Me-Br [Hycodan 5 Mg-1.5 Mg/5 Ml Soln]) 5 ml PO Q6H PRN PRN Reason: Cough Ondansetron HCl (Ondansetron Odt 4 Mg Tab) 8 mg PO Q8H PRN PRN Reason: Nausea And Vomiting Pantoprazole Sodium (Pantoprazole 40 Mg/10 Ml Vial) 40 mg IVP DAILY [facility] Last Admin: 12/17/20 08:13 Dose: 40 mg Documented by: Sodium Chloride (Sodium Chloride 0.65% Nasal [place] 44 Ml Btl) 2 spray NASAL QID PRN PRN Reason: Nasal Congestion Last Admin: 12/15/20 12:24 Dose: 2 spray Documented by: Trazodone HCl (Trazodone Hcl 50 Mg Tab) 50 mg PO HS [facility] Last Admin: 12/16/20 20:03 Dose: 50 mg Documented by: Objective - Vital Signs Vital signs: Vital Signs Temp 98.7 F 12/17/20 08:00 Pulse 124 H 12/17/20 12:00 Resp 26 H 12/17/20 12:00 BP 99/62 12/17/20 12:00 Pulse Ox 93 L 12/17/20 12:00 Intake & Output 12/16/20 12/17/20 12/17/20 18:59 06:59 18:59 Intake Total 1210 510 550 Output Total 1900 8505 575 Balance -690 -565 -25 Weight 76.3 kg 76.5 kg Intake: IV 330 110 190 Cefepime 2 gm In Sodium 200 100 Chloride 0.9% 100 ml @ 25 mls/hr IVPB Q8HR [facility] Rx# :[id number] Sodium Chloride 0.9% 1, 130 110 90 000 ml @ 10 mls/hr IV . Q24H [facility] Rx#:[id number] Oral 880 400 360 Output: Urine 1900 1075 575 Other: Voiding Method Indwelling Catheter Indwelling Catheter Indwelling Catheter - Labs CBC & Chem 7: 12/17/20 03:39 12/17/20 03:39 Labs: Abnormal Lab Results - Last 24 Hours (Table) 12/17/20 12/17/20 12/17/20 Range/Units 03:39 03:39 07:14 WBC 3.2 L (3.8-10.6) k/uL RBC 2.80 L (4.30-5.90) m/uL Hgb 9.3 L (13.0-17.5) gm/dL Hct 27.3 L (39.0-53.0) % RDW 16.0 H (11.5-15.5) % Plt Count 11 L* (150-450) k/uL Neutrophils # 1.1 L (1.3-7.7) k/uL Sodium 133 L (137-145) mmol/L Chloride 97 L (98-107) mmol/L Carbon Dioxide 31 H (22-30) mmol/L Creatinine 0.48 L (0.66-1.25) mg/dL Glucose 115 H (74-99) mg/dL POC Glucose (mg/dL) 127 H (75-99) mg/dL Calcium 8.3 L (8.4-10.2) mg/dL Total Protein 5.4 L (6.3-8.2) g/dL Albumin 2.6 L (3.5-5.0) g/dL Microbiology - Last 24 Hours (Table) 12/13/20 08:45 Blood Culture - Preliminary Blood No Growth after 96 hours 12/13/20 08:30 Blood Culture - Preliminary Blood No Growth after 96 hours 12/16/20 07:15 Gram Stain - Preliminary Sputum Sputum Culture - Preliminary
[2020-12-17] MEDS: traZODone HCL 50 MG TAB PO SCH (20:40)
[2020-12-18 05:03] LABS: ALT 39 U/L (4-49); AST 43 U/L (17-59); African American GFR (CKD) >90 (>60 ml/min/1.73 sqM); Albumin 2.6 g/dL (3.5-5.0); Alkaline Phosphatase 107 U/L (38-126); Anion Gap 5 mmol/L; Blood Urea Nitrogen 12 mg/dL (9-20); Calcium 8.3 mg/dL (8.4-10.2); Carbon Dioxide 29 mmol/L (22-30); Chloride 99 mmol/L (98-107); Glucose 117 mg/dL (74-99); Non-African American GFR(CKD) >90 (>60 ml/min/1.73 sqM); Potassium 4.5 mmol/L (3.5-5.1); Sodium 133 mmol/L (137-145); Total Bilirubin 1.2 mg/dL (0.2-1.3); Total Protein 5.5 g/dL (6.3-8.2)
[2020-12-18 05:09] LABS: Anisocytosis Slight; HCT 24.4 % (39.0-53.0); HGB 8.5 gm/dL (13.0-17.5); MCH 33.7 pg (25.0-35.0); MCHC 35.1 g/dL (31.0-37.0); MCV 96.2 fL (80.0-100.0); Macrocytosis Slight; Mean Platelet Volume 10.6; RBC 2.53 m/uL (4.30-5.90); RDW 16.7 % (11.5-15.5); WBC 3.6 k/uL (3.8-10.6)
[2020-12-18 05:10] LABS: Platelet Count 28 k/uL (150-450)
[2020-12-18] MEDS: GABAPENTIN 300 MG CAP PO SCH ×2 (08:52→15:33)
[2020-12-18] MEDS: PANTOPRAZOLE 40 MG/10 ML VIAL IVP SCH (08:52)
[2020-12-18] MEDS: CEFEPIME 2 GM in SODIUM CHLORIDE 0.9% 100 ML IVPB SCH ×2 (08:52→15:33)
[2020-12-18] MEDS: METOPROLOL SUCCINATE (ER) 25 MG TAB.ER.24H PO SCH (08:52)
[2020-12-18] MEDS: MORPHINE SULFATE ER 60 MG TABLET PO SCH (09:01)
[2020-12-18] MEDS: LORazepam 2 MG/ML INJ IV PRN ×2 (09:05→15:32)
[2020-12-18 10:12] VITALS: BP 110/60; PULSE 112; RESP 18; TEMP 98.6
--- NOTE | 2020-12-18 10:12 | P.PN ---
Subjective Progress Note Date: 12/18/20 Principal diagnosis: Small cell lung cancer with pancytopenia 60-year-old male patient with metastatic small cell lung cancer who is currently undergoing oral chemotherapy with topotecan a total of 3.5 mg 5 days on 21 days off. This was given to him through the [facility]. I diagnosis patient having metastatic small cell lung cancer back in June 2020. At that time, the patient he started having worsening shortness of breath and he was seen by his primary care physician he was diagnosed having a pneumonia of the right lower lobe. Following that he was given antibiotics and steroids without much help. Upon follow-up, he was referred for a CAT scan of the chest and the CAT scan of the chest was completed at [facility] on 06/07/2020. I had the chance in reviewing the CAT scan images and the patient was found to have some mild to moderate emphysematous changes in the upper lobes bilaterally. There was however a right hilar mass/masslike consolidation and mediastinal lymphadenopathy involving the right paratracheal and subcarinal lesion and there was an abnormal right tracheobronchial masslike lymph node measuring 2.7 x 2.1 cm in size. There was also paratracheal lymph nodes and these were extending to the superior mediastinum. There were also smaller hepatic lesions which obviously raises the concern for malignancy. For that reason, the patient was referred to me with a concern of lung cancer. Clinically, the patient had some exertional dyspnea and shortness of breath. He has no hemoptysis. He has no weight loss. He has been sweating at nighttime. No fever. No chills. No change in his appetite. No change in voice. I performed a bronchoscopy on this patient and diagnosis small cell lung cancer was established. I performed a bronchoscopy and the diagnosis was consistent with small cell lung cancer. The patient has had some subsequent MRI of the brain that came back negative for metastases. His PET scan showed advanced stage right lung neoplasm with abnormal thoracic and supraclavicular lymphadenopathy and there was hepatic and osseous involvement. The patient had also suspicious subcentimeter focus in the region of the panc reatic tail and possible involvement of the left pubic bone, subtle sclerosis of the level of the left pubic bone in addition to proximal right femoral lesion at the level of the intertrochanteric area and the patient also had some mild height loss at the level of T12 vertebra with mild hypermetabolic activity. The patient was referred for oncology. He did not have a good encounter with Dr. REID and subsequently ended up going to [facility]. He was hospitalized immediately at [facility] and he was started on systemic chemotherapy and he has been also started on immunotherapy. I'm not sure of the exact regimen however my suspicion is that the patient is receiving a combination of c arboplatinum, COIL SHAPER-16 and Tecentric. Follow-up CAT scan of the chest that was done on 11/12/2020 showed a large right hilar and mediastinal mass with encasement of the right main pulmonary artery and the right sided bronchus intermedius/right lower lobe with secondary narrowing.. There was also by peripheral increased lung markings possibly consistent with metastatic disease. Multiple enlarging hypodense lesions in liver lesions were also seen. A follow- up CAT scan of the chest that was also done on 11/26/2020 showed essentially unchanged findings. At that point, the patient was seen again at the [facility] and the patient was given topotecan and the patient has already received one round of oral chemotherapy. He received Neulasta. He is presenting today to the burst department because of worsening shortness of breath over the past 1 week. The patient was having lower GI bleed with bright red blood per rectum. The patient started having lower GI bleed around 2-3 days ago and the patient was having several bouts on a daily basis. He arrived to the hospital and he stated count was 4 and his hemoglobin was at 5.7 with a white cell count of 2. Normal coagulation profile. Normal electrolytes. LFTs were normal.: 19 testing was negative. Chest x-ray showed a right infrahilar soft tissue density in the patient had increased interstitial markings bilaterally seen on a previous chest x-ray also. At this point in time, the patient is on 2 L about 2 by nasal cannula. The patient is sinus tachycardia with a heart rate in the 160-120 range. No hematemesis. No abdominal pain. Altered mental status. He already has received a unit of packed RBC. Platelets have been ordered. Another unit of packed RBC has been ordered. He was given a total of 1.5 L of normal saline in the emergency department. Patient was reevaluated today on 12/13/2020, remains in the ICU, he is on 2 L nasal cannula with O2 saturation 94%. Patient feels a bit short of breath. He received so far 3 units of packed RBCs and 1 unit of platelets. Continues to have pancytopenia with a WBC count of 1.9 hemoglobin of 6.3 and platelets are 27,000. Patient remains on IV fluid at 1 50 mL per hour in the form of 0.9 normal saline. His blood pressure is marginal. Hence I added antibiotics in the form of cefepime and vancomycin on this patient. Ulcers are pending. Patient is yet to be seen by oncology on consultation. Today I have recommended another unit of packed RBCs and another unit of platelets to be given since his hemoglobin remains low and platelets remain low. Chest x-ray showed minimal interstitial changes at the bases. Could be related to some component of inters titial edema or pneumonitis. Patient received significant amount of fluid since admission. But no antibiotics have been given, and I'm recommending cefepime and vancomycin to start empirically today. Electrolytes are normal renal profile is normal. Clinically the patient feels a bit better today compared to how he felt yesterday. Continues to have low back pain. Reevaluated today on 12/14/2020, remains in the ICU, on 6 L nasal cannula, slightly better as far as her hematologic profile, patient received a total of hemoglobin today is 8.7 and his platelets are 38,000. Patient is a bit more short of breath today, and chest x-ray is showing bilateral infiltrates suggestive of pneumonia, and the patient is already empirically on broad- spectrum antibiotics. Blood cultures are negative and urine culture is negative so far. Sputum cultures will be ordered. CBC count today is up to 2.3 h emoglobin 8.7 and left lites are normal renal profile is normal chest x-ray bilateral multifocal opacities noted in the lungs bilaterally. Reevaluated today on 12/15/2020, patient remains in the ICU, on 6 L nasal cannula with O2 sats of 96 5%. Remains on IV fluid at 0.9 normal saline 75 mL per hour. Patient seems to be quite comfortable, his chest x-ray continues show by basilar infiltrates, however bed back to his previous x-rays, and this abnormality in the bases especially in the right lower lobe has been noted even going back to June when his diagnosis of lung cancer was made. Patient did receive Lasix yesterday, remains on antibiotics in the form of cefepime. Also vancomycin. Patient will receive another dose of Lasix today. And his colon cancer screening was negative. Scan is coming up nicely up to 3.2 today, hemoglobin is holding at 9.2, however platelets remained low at 23,000, no active bleeding noted, hence no platelets transfusion as recommended by hematology on the case. Electrolytes and renal profile are normal. Reevaluated today on 12/16/2020, patient is basically about the same. Remains on 6 L nasal cannula, he is not in any distress, he is hemodynamically stable, his hemoglobin is responding well and his WBC count is responding well, however his platelets remain low at 17,000, no active bleeding at the patient remains on antibiotics empirically for presumptive pneumonia although the findings on the chest x-ray are probably related to his underlying small cell lung cancer. Pneumonia is not entirely ruled out. And I plan to continue his antibiotics accordingly. WBC count is 3.8 hemoglobin is 9.6 platelets are 17,000. Electrolytes are normal renal profile is normal The patient is seen today 12/17/2020 in follow-up in the intensive care unit. He is currently sitting up in bed. Awake and alert in no acute distress. He still having some dyspnea with conversation, dyspnea with minimal exertion. He is currently on 8 L high flow nasal cannula with O2 saturation of 93%. Chest x- ray continues to show diffuse interstitial changes as well as confluent mid and lower lobe airspace disease. He is feeling a bit better today compared to yeste rday. He is slightly tachycardic, no fever or chills. He has 0.9 normal saline at 10 MLS per hour. He is in a -2.4 L fluid balance. He is status post 4 units of packed red blood cells and 2 units of platelets this admission. His current hemoglobin is 9.3. Platelet count 11,000. White count 3.2. Sodium 133. Potassium 3.8. Bicarb 31. Creatinine 0.48. Glucose 127. Blood cultures reveal no growth. Urine culture revealed no growth. Sputum culture pending. He remains on cefepime. Continued on Zarxio. Reevaluated today on 12/18/2020, remains in the intensive care unit, patient was reevaluated yesterday by hematology, and his case was discussed with his oncologist at the [facility], and they are all in agreement and I'm also in agreement that the patient has extremely poor prognosis, and apparently the issue of hospice was discussed with his and with the patient. And the patient is going to go home with home hospice. CBC today showed WBC count of 3.6 hemoglobin of 8.5 platelets are 28,000. Left lites are normal renal profile is normal Objective - Vital Signs Vital signs: Vital Signs Temp 97.9 F 12/18/20 02:00 Pulse 86 12/18/20 02:00 Resp 20 12/18/20 02:00 BP 104/66 12/18/20 02:00 Pulse Ox 95 12/18/20 04:35 Intake & Output 12/17/20 12/18/20 12/18/20 18:59 06:59 18:59 Intake Total 700 638 Output Total 725 685 Balance -25 -47 Weight 77.1 kg Intake: IV 220 90 Cefepime 2 gm In Sodium 100 Chloride 0.9% 100 ml @ 25 mls/hr IVPB Q8HR [facility] Rx# :[id number] Sodium Chloride 0.9% 1, 120 90 000 ml @ 10 mls/hr IV . Q24H [facility] Rx#:[id number] Oral 480 Blood Product 548 Platelet Pheresis Pas 274 Psoralen Unit [id number] Output: Urine 725 685 Other: Voiding Method Indwelling Catheter Indwelling Catheter - Exam General: Revealed a 60-year-old white male in no distress. Derm: Areas of ecchymosis noted in both upper extremities. Head: Atraumatic, normocephalic. Eyes: PERRLA, EOMI, nonicteric. ENT: Nose and ears atraumatic, no thrush, no pharyngeal erythema Neck: No thyromegaly, no cervical lymphadenopathy, trachea midline, supple Mouth: Normal mucous membranes. Cardiovascular: Normal S1 and S2, no S3 gallop. Lungs: Minimal crackles at the bases. Abdominal: Soft nontender no megaly no rebound no guarding. Ext: No clubbing edema or cyanosis. Ecchymosis is noted in both arms Neuro: Alert and oriented 3 focal deficits. Psych: Normal mood, affect and normal mental status examination. - Labs CBC & Chem 7: 12/18/20 03:29 12/18/20 03:29 Labs: Abnormal Lab Results - Last 24 Hours (Table) 12/12/20 12/18/20 12/18/20 Range/Units 15:00 03:29 03:29 WBC 3.6 L (3.8-10.6) k/uL RBC 2.53 L (4.30-5.90) m/uL Hgb 8.5 L (13.0-17.5) gm/dL Hct 24.4 L (39.0-53.0) % RDW 16.7 H (11.5-15.5) % Plt Count 28 L D (150-450) k/uL Sodium 133 L (137-145) mmol/L Creatinine 0.41 L (0.66-1.25) mg/dL Glucose 117 H (74-99) mg/dL Calcium 8.3 L (8.4-10.2) mg/dL Total Protein 5.5 L (6.3-8.2) g/dL Albumin 2.6 L (3.5-5.0) g/dL Crossmatch See Detail Microbiology - Last 24 Hours (Table) 12/16/20 07:15 Gram Stain - Final Sputum Sputum Culture - Final Therese albicans 12/13/20 08:45 Blood Culture - Preliminary Blood No Growth after 96 hours 12/13/20 08:30 Blood Culture - Preliminary Blood No Growth after 96 hours Assessment and Plan Assessment: Impression: Extensive stage primary small cell lung cancer with diffuse metastasis. 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 Pancytopenia secondary to recent chemotherapy at the [facility]. Acute blood loss anemia, possible undergoing GI bleeding secondary to thrombocytopenia. Acute thrombocytopenia secondary to bone marrow suppression from systemic chemotherapy. History of underlying COPD Recommendation: Discussed this patient's condition with the oncologist yesterday, and in turn he discussed this with his oncologist at the [facility], and they came to an agreement that the patient is not doing well, and recommending hospice care at home. I agree with the plan, patient will be going home today on home hospice. Prognosis is extremely poor Time with Patient: Less than 30
[2020-12-18] MEDS: SODIUM CHLORIDE 0.9% 1,000 ML IV SCH (15:28)
[2020-12-18] MEDS: FILGRASTIM-SNDZ 480 MCG/0.8 ML SYRINGE SQ SCH (15:32)
[2020-12-18] MEDS ORDERED: HYDROmorphone 1 MG/ML 1 ML SYRINGE IVP STA (15:46)
--- NOTE | 2020-12-18 20:56 | P.DS ---
Providers Date of admission: 12/12/20 18:05 Expected date of discharge: 12/18/20 Attending physician: Omer Gonzalez MD Consults: 12/12/20 18:05 Consult Physician Routine Consulting Provider: Kevin Chavez Consult Reason/Comments: Critical care management Do you want consulting provider notified?: Yes Consult Physician Stat Consulting Provider: Ann Marie Neville Consult Reason/Comments: History of lung cancer, anemia, thrombocytopenia Do you want consulting provider notified?: Yes Primary care physician: Renan Gonzalez Hospital Course: Discharge Diagnosis: He was discharged on hospice Acute lower GI bleed Acute blood loss anemia secondary to severe thrombocytopenia 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 On arrival he was found to have hemoglobin of 5.7, platelet count of 4, and weight blood cell count of 2. He was started on IV fluids. He underwent a chest x-ray which showed a right infrahilar soft tissue density with increased interstitial markings seen bilaterally. COVID-19 testing was negative. He was given 2 units of packed red blood cells and 1 unit of platelets. He was admitted to the ICU. Pulmonary/critical care with consulted. Due to his pancytopenia and marginal blood pressures as well as possible change in chest x-ray he was started on Vanco and cefepime on 12/13. He received an additional unit of platelets and 2 additional units of packed red blood cells on 12/13. He received an additional dose of plt on 12/17. Pulmonary felt that his CXR was consistent with pulmonary carcinomatosis, oncology stated prognosis of less than 6 months, and no longer candidate for chemotherapeutic agents. discussed this with his care team at [facility] and family elected to proceed with hospice care. He was discharged home with hospice, blue water. He was provided with prescriptions for Roxanol, Ativan, and atropine. Echo 11/26- EF 40-45% Chest x-ray-no significant interval change in extensive interstitial lung dise ase. Patient seen and examined at bedside. Currently pain free and not having any shortness of breath. Ativan significantly helped with anxiety. With a long discussion with his and mother that he should be using morphine as needed to help with this shortness of breath at home and Ativan for anxiety. We discussed how to administer Roxanol either sublingual or buccal. All questions answered. Vital signs reviewed and stable. General: non toxic, no distress, appears at stated age Derm: Pale, cool, dry Head: atraumatic, normocephalic, symmetric Eyes: EOMI, no lid lag, anicteric sclera Mouth: no lip lesion, mucus membranes moist Cardiovascular: S1S2 reg, no murmur, positive posterior tibial pulse bilateral, Lungs: Coarse breath sounds bilateral, no rhonchi, no rales , no accessory muscle use Abdominal: soft, nontender to palpation, no guarding, no appreciable organomegaly Ext: no gross muscle atrophy, no edema, no contractures Neuro: CN II-XI grossly intact, no focal neuro deficits Psych: Lethargic with flat affect A total of 42 minutes of time were spent preparing this complex discharge summary . Patient Condition at Discharge: Poor Plan - Discharge Summary Discharge Rx Participant: No New Discharge Prescriptions: New LORazepam [Ativan] 1 mg PO Q4H PRN 3 Days #30 tab PRN Reason: Anxiety traZODone HCL [Desyrel] 50 mg PO HS #30 tab Atropine Ophth Soln 1% 5Ml [Isopto Atropine 1% 5Ml] 2 drop SUBLINGUAL Q4H PRN #5 ml PRN Reason: Secretions MORPHINE ORAL JOSE CONC 20mg/mL [Roxanol Oral Soln Conc 20MG/ML] 10 mg PO Q4H PRN 3 Days #30 ml PRN Reason: Pain Continue Polyethylene Glycol 3350 [Miralax] 17 gm PO DAILY Pantoprazole Sodium [Protonix] 20 mg PO DAILY Morphine Sulfate [Ms Contin] 60 mg PO Q12H Metoprolol Succinate (ER) [Toprol XL] 25 mg PO DAILY #30 tab.er.24h Loperamide HCl [Imodium] 2 - 4 mg PO TID PRN PRN Reason: Diarrhea Hycamtin 0.25mg 0.5 mg PO DIRECTED Hycamtin 1mg 3 mg PO DIRECTED Sennosides [Senna] 17.2 mg PO BID PRN PRN Reason: Constipation Hydrocodone Bit/Homatrop Me-Br [Hycodan 5 mg-1.5 mg/5 ml Soln] 5 ml PO Q6H PRN PRN Reason: Cough Gabapentin 300 mg PO BID@0900,1500 Gabapentin [Neurontin] 600 mg PO HS Ondansetron Odt [Zofran ODT] 8 mg PO Q8H PRN PRN Reason: Nausea And Vomiting Phenylephrine HCl [Sudafed PE] 10 mg PO Q4H PRN PRN Reason: Congestion Discontinued oxyCODONE HCL [OxyIR] 5 - 10 mg PO Q4H PRN PRN Reason: Pain Pegfilgrastim [Neulasta] 6 mg SQ Q21D Discharge Medication List Gabapentin 300 mg PO BID@0900,1500 11/12/20 [History] Hydrocodone Bit/Homatrop Me-Br [Hycodan 5 mg-1.5 mg/5 ml Soln] 5 ml PO Q6H PRN 11/12/20 [History] Pantoprazole Sodium [Protonix] 20 mg PO DAILY 11/12/20 [History] Polyethylene Glycol 3350 [Miralax] 17 gm PO DAILY 11/12/20 [History] Gabapentin [Neurontin] 600 mg PO HS 11/26/20 [History] Morphine Sulfate [Ms Contin] 60 mg PO Q12H 11/26/20 [History] Metoprolol Succinate (ER) [Toprol XL] 25 mg PO DAILY #30 tab.er.24h 11/27/20 [Rx] Hycamtin 0.25mg 0.5 mg PO DIRECTED 12/12/20 [History] Hycamtin 1mg 3 mg PO DIRECTED 12/12/20 [History] Loperamide HCl [Imodium] 2 - 4 mg PO TID PRN 12/12/20 [History] Ondansetron Odt [Zofran ODT] 8 mg PO Q8H PRN 12/12/20 [History] Phenylephrine HCl [Sudafed PE] 10 mg PO Q4H PRN 12/12/20 [History] Sennosides [Senna] 17.2 mg PO BID PRN 12/12/20 [History] Atropine Ophth Soln 1% 5Ml [Isopto Atropine 1% 5Ml] 2 drop SUBLINGUAL Q4H PRN #5 ml 12/18/20 [Rx] LORazepam [Ativan] 1 mg PO Q4H PRN 3 Days #30 tab 12/18/20 [Rx] MORPHINE ORAL JOSE CONC 20mg/mL [Roxanol Oral Soln Conc 20MG/ML] 10 mg PO Q4H PRN 3 Days #30 ml 12/18/20 [Rx] traZODone HCL [Desyrel] 50 mg PO HS #30 tab 12/18/20 [Rx] Follow up Appointment(s)/Referral(s): [facility] Vis[facility] Nurse, [NON-STAFF] - 1-2 Days Discharge Disposition: HOME WITH HOSPICE
== END 2020-12-18 16:08 | disposition hospice, home (50) | DRG 808 ==
LOC: EC 13:35 → 2SICU 18:05
PROVIDERS: ADMIT Internal Medicine; ATTEND Internal Medicine
PROC: 30233R1 Transfusion of Nonautologous Platelets into Peripheral Vein, Percutaneous Approach (ICD-10-PCS; principal; 2020-12-12)
PROC: 30233N1 Transfusion of Nonautologous Red Blood Cells into Peripheral Vein, Percutaneous Approach (ICD-10-PCS; 2020-12-12)
DX: D61.810 Antineoplastic chemotherapy induced pancytopenia (principal); I50.23 Acute on chronic systolic (congestive) heart failure; J18.9 Pneumonia, unspecified organism; C34.31 Malignant neoplasm of lower lobe, right bronchus or lung; F11.20 Opioid dependence, uncomplicated; I48.92 Unspecified atrial flutter; I42.9 Cardiomyopathy, unspecified; I45.89 Other specified conduction disorders; C80.0 Disseminated malignant neoplasm, unspecified; K92.2 Gastrointestinal hemorrhage, unspecified; J44.0 Chronic obstructive pulmonary disease with (acute) lower respiratory infection; D62 Acute posthemorrhagic anemia; D69.59 Other secondary thrombocytopenia; I48.91 Unspecified atrial fibrillation; T45.1X5A Adverse effect of antineoplastic and immunosuppressive drugs, initial encounter; Z20.822 Contact with and (suspected) exposure to COVID-19; F41.9 Anxiety disorder, unspecified; Z51.5 Encounter for palliative care; K76.9 Liver disease, unspecified; Z80.1 Family history of malignant neoplasm of trachea, bronchus and lung; Z85.118 Personal history of other malignant neoplasm of bronchus and lung; Z87.891 Personal history of nicotine dependence; Z96.642 Presence of left artificial hip joint; Z79.899 Other long term (current) drug therapy; Z86.16 Personal history of COVID-19; Z92.21 Personal history of antineoplastic chemotherapy
CPT/HCPCS: 36415; 71045; 71046; 80048; 80053; 81001; 82009; 83735; 83880; 84484; 85025; 85027; 85379; 85384; 85610; 85730; 86850; 86900; 86901; 86920; 87040; 87070; 87086; 87205; 87635; 93005; 96360; 99291